=== PATIENT | female | born 1955 | race American Indian/Alaskan Native ===

== ENCOUNTER 2017-08-09 23:14 | Inpatient (IN) | payer OTHER ==
[2017-08-09 23:16] VITALS: BMI 40.7
[2017-08-09] MEDS ORDERED: Albuterol-Ipratrop 3 mg / 0.5 (3 ml) UD ONE (23:35)
[2017-08-09] MEDS ORDERED: Azithromycin 500MG/NS 250ml 500 MG/250 ML BAG IV STA (23:39)
[2017-08-09] MEDS ORDERED: Albuterol-Ipratrop 3 mg / 0.5 (3 ml) UD IH STA (23:39)
[2017-08-09] MEDS ORDERED: cefTRIAXone 1 gm 1 GM/100 ML BAG IV STA (23:39)
[2017-08-09] MEDS ORDERED: EPINEPHrine 1 mg/ml (1:1000) Inj SC STA (23:40)
[2017-08-09] MEDS ORDERED: Magnesium Sulfate 2 GM in Sodium Chloride 0.9% 100 ML IVPB ONE (23:40)
[2017-08-09] MEDS: EPINEPHrine 1 mg/ml (1:1000) Inj ONE (23:41)
[2017-08-09 23:51] LABS: BASO # 0.01 K/mm3 (0.0-2.0); BASO % 0.1 % (0.0-3.0); EOS # 0.4 (0.0-0.7); EOS % 3.2 % (1.5-5.0); GRAN # 7.86 (1.4-6.5); GRAN % 61.8 % (50.0-68.0); HEMATOCRIT 38.4 % (36.0-48.0); LYMPH # 3.5 (1.2-3.4); LYMPH % 27.4 % (22.0-35.0); MEAN CELL VOLUME 85.5 fl (80.0-105.0); MEAN CORPUSCULAR HEMOGLOBIN 28.1 pg (25.0-35.0); MEAN CORPUSCULAR HGB CONC 32.8 g/dl (31.0-37.0); MEAN PLATELET VOLUME 9.3 fl (7.0-11.0); MONO % 7.5 % (1.0-6.0); RED CELL DISTRIBUTION WIDTH 13.3 % (11.5-14.5); WHITE BLOOD COUNT 12.7 10^3/ul (4.5-11.0)
--- NOTE | 2017-08-09 23:52 | ED PDOC ---
Arrival/HPI - General Chief Complaint: Respiratory Distress Time Seen by Provider: 08/09/17 23:38 Historian: Patient - Critical Care Critical Care Minutes: 30 minutes - History of Present Illness Narrative History of Present Illness (Text): 08/09/17 23:40 Magalis Dickerson is a 62 year old female who presents to the emergency department complaining of 1 week duration of intermittent wheezing as per EMS. Patient has been using a nebulizer machine at home with very little help. Today , Patient was walking with her and became very short of breath, then brought into the emergency room. Patient indicates having dry, non-productive coughs and denies any chest pain. Patient has no other complaints. ROS limited due to severity of situation. Time/Duration: 1 week Symptom Course: Intermittent Severity Level: Mild Activities at Onset: Light Past Medical History - Provider Review Nursing Documentation Reviewed: Yes - Infectious Disease Hx of Infectious Diseases: None - Cardiac Hx Hypertension: Yes - Pulmonary Hx Bronchitis: Yes - Neurological Other/Comment: diabetic neuropathy - Endocrine/Metabolic Hx Diabetes Mellitus Type 2: Yes - Psychiatric Hx Substance Use: No Family/Social History - Physician Review Nursing Documentation Reviewed: Yes Family/Social History: No Known Family HX Smoking Status: Unknown If Ever Smoked Hx Alcohol Use: No Hx Substance Use: No Allergies/Home Meds Allergies/Adverse Reactions: Allergies No Known Allergies Allergy (Verified 08/09/17 23:16) Home Medications: Home Meds Medication Instructions Recorded Confirmed Amoxicillin/Clavulanate [Augmentin 1 tab PO BID 08/09/17 08/09/17 875 MG-125 MG Tab] Gabapentin [Neurontin] 1 tab PO TID 08/09/17 08/09/17 MetFORMIN [glucoPHAGE] 1 tab PO BID 08/09/17 08/09/17 Promethazine HCl/Codeine 1 tsp PO HS 08/09/17 08/09/17 [Prometh-Codein 6.25-10 mg/5 ml] Ramipril [Altace] 1 tab PO DAILY 08/09/17 08/09/17 Simvastatin [Zocor] 1 tab PO DAILY 08/09/17 08/09/17 Physical Exam - Physical Exam Narrative Physical Exam (Text): - Review of Systems: Limited due to severity of situation. Physical exam Patient is in severe respiratory distress, speaking in 1-2 word sentences. - Systems Exam Head: Present: Atraumatic, Normocephalic Pupils: Present: PERRL Extroacular Muscles: Present: EOMI Conjunctiva: Present: Normal Mouth: Present: Moist Mucous Membranes Neck: Present: Normal Range of Motion. No: MIDLINE TENDERNESS, Paraspinal Tenderness Respiratory/Chest: Diffuse expiratory wheezing in all lung carroll. Cardiovascular: Present: Regular Rate and Rhythm, Normal S1, S2, Peripheal Pulses Present. No: Murmurs Abdomen: Present: Normal Bowel Sounds. No: Tenderness, Distention, Peritoneal Signs, Rebound, Guarding Back: Present: Normal Inspection. No: Midline Tenderness, Paraspinal Tenderness Upper Extremity: Present: Normal Inspection. No: Cyanosis, Edema Lower Extremity: Present: Normal Inspection. No: Edema Neurological: Present: GCS=15, Speech Normal, cranial nerves II through XII fully intact with no cerebellar abnormality, neurosensory fully intact. No focal neurological deficits. Skin: Present: Warm, Dry, Normal Color. No: Rashes Lymphatic: Present: OX3, NI, NC Psychiatric: Present: Alert, Oriented x 3, Normal Insight, Normal Concentration Vital Signs Reviewed: Yes Vital Signs Temp Pulse Resp BP Pulse Ox 08/10/17 03:00 119 H 23 99/64 L 100 08/10/17 02:50 123 H 21 100 08/10/17 02:46 98.1 F 113 H 25 H 118/70 08/10/17 02:40 132 H 33 H 100 08/10/17 02:34 135 H 30 H 100 08/10/17 02:30 98.1 F 118/70 08/10/17 01:55 162/107 H 08/09/17 23:25 98.9 F 122 H 28 H 146/77 100 08/09/17 23:20 30 H 96 Temperature: Afebrile Blood Pressure: Normal Pulse: Tachycardic Respiratory Rate: Tachypneic Medical Decision Making ED Course and Treatment: Impression: 62 year old female complaining of 1 week duration of intermittent wheezing. On physical exam, patient has diffuse expiratory wheezing in all lung carroll. Differential Diagnosis included but are not limited to: bronchitis, asthma, pneumonia Plan: -- ABG -- Chest X-ray -- Blood Culture -- BiPAP -- Labs -- Duoneb, Epinephrine, Rocephine, Zithromax, and Magnesium -- Reassess and disposition Progress Notes: EKG shows Sinus tachycardia at [address]-segment elevations, normal intervals. Interpreted by me. 08/10/17 23:40 Patient seen immediately on arrival. As per cemetery counselor report, patient received one nebulizer treatment and 125 mg of solu-medrol en route. Patient ordered 2g of Magnesium. Patient given continuous nebulizers with little relief. Patient denied any heart disease. Epinephrine SQ ordered and given. Placed on BiPAP. Patient tolerating BiPAP for now. 08/10/17 00:26 Chest X-ray read and interpreted by me, which shows no cardiomegaly, no pneumothorax, no effusions. Case discussed with Dr. Larkin, who that he will evaluate patient. 08/10/17 00:33 On reevaluation, patient states that she feels much better. Wheezing improved. 08/10/17 00:[address] Larkin, patient accepted to MICU. 08/10/17 00:57 Patient says that she has no [place] [facility] [place] [facility]oy paged multiple times but no call back. Case discussed with Dr. Larkin, who states that he is aware that patient is going under hospitalist service. 08/10/17 01:[address] Sims, who accepts patient admission. on reeval, pt tolerating bipap - Lab Interpretations Lab Results: 08/09/17 23:30 08/09/17 23:30 Lab Results 08/10/17 00:10: pCO2 56 H, pO2 196.0 H, HCO3 25.1, ABG pH 7.26 L, ABG Total CO2 26.8, ABG O2 Saturation 99.5 H, ABG O2 Content 17.5, ABG Base Excess -2.7 L, ABG Hemoglobin 12.5, ABG Carboxyhemoglobin 1.5, POC ABG HHb (Measured) 0.5, ABG Methemoglobin 0.8, ABG O2 Capacity 17.6, Hgb O2 Saturation 97.2, FiO2 70.0 08/09/17 23:30: Sodium 141, Potassium 3.5 L, Chloride 103, Carbon Dioxide 27, Anion Gap 15, BUN 10, Creatinine 0.8, Est GFR ( Amer) > 60, Est GFR (Non- Af Amer) > 60, Random Glucose 198 H, Calcium 8.9, Total Bilirubin 0.6, AST 36, ALT 31, Alkaline Phosphatase 76, Lactate Dehydrogenase 570, Total Creatine Kinase 696 H, CK-MB (CK-2) 2.9, CK-MB (CK-2) % Cancelled, Troponin I < 0.01, NT- Pro-B Natriuret Pep 129, Total Protein 7.5, Albumin 4.3, Globulin 3.2, Albumin/ Globulin Ratio 1.3 08/09/17 23:30: PT 10.9, INR 1.01, APTT 24.5 08/09/17 23:30: WBC 12.7 H, RBC 4.49, Hgb 12.6, Hct 38.4, MCV 85.5, MCH 28.1, MCHC 32.8, RDW 13.3, Plt Count 276, MPV 9.3, Gran % 61.8, Lymph % (Auto) 27.4, [place] % (Auto) 7.5 H, Eos % (Auto) 3.2, Baso % (Auto) 0.1, Gran # 7.86 H, Lymph # 3.5 H, [place] # 1.0 H, Eos # 0.4, Baso # 0.01 I have reviewed the lab results: Yes - RAD Interpretation Radiology Orders: 08/09/17 23:39 CHEST PORTABLE [RAD] Stat - Medication Orders Current Medication Orders: Albuterol/Ipratropium (Duoneb 3 Mg/0.5 Mg (3 Ml) Ud) 3 ml IH Q2H PRN PRN Reason: Shortness of Breath Albuterol/Ipratropium (Duoneb 3 Mg/0.5 Mg (3 Ml) Ud) 3 ml IH [id number] LINDA Last Admin: 08/10/17 03:07 Dose: 3 ml Atorvastatin Calcium (Lipitor) 20 mg PO DIN LINDA Gabapentin (Neurontin) 100 mg PO TID LINDA PRN Reason: Protocol Heparin Sodium (Porcine) (Heparin) 5,000 units SC Q12 LINDA PRN Reason: Protocol Sodium Chloride (Sodium Chloride 0.9%) 1,000 mls @ 75 mls/hr IV .[id number] LINDA Last Admin: 08/10/17 02:30 Dose: 75 mls/hr eMAR Start Stop Document 08/10/17 02:30 PD (Rec: 08/10/17 05:08 PD [id number]) Intravenous Solution Start Date 08/10/17 Start Time 02:30 Insulin Human Lispro (Humalog Med) 0 units SC ACHS LINDA PRN Reason: Protocol Methylprednisolone (Solu-Medrol) 40 mg IVP Q12 LINDA Ondansetron HCl (Zofran Inj) 4 mg IVP Q4H PRN PRN Reason: Nausea/Vomiting Pantoprazole Sodium (Protonix Ec Tab) 40 mg PO 0600 LINDA Ramipril (Altace) 5 mg PO DAILY LINDA Discontinued Medications Albuterol/Ipratropium (Duoneb 3 Mg/0.5 Mg (3 Ml) Ud) 3 ml IH STAT STA Stop: 08/09/17 23:40 Last Admin: 08/10/17 02:47 Dose: 3 ml Epinephrine HCl (Epinephrine) 0.5 mg SC STAT STA Stop: 08/09/17 23:41 Last Admin: 08/10/17 01:08 Dose: 0.5 mg Subcutaneous Administrations Document 08/10/17 01:08 TEVIN (Rec: 08/10/17 01:08 [id number]) Charges for Administration # of Subcutaneous Administrations 1 Magnesium Sulfate 2 gm/ Sodium (Chloride) 104 mls @ 102 mls/hr IVPB ONCE ONE Stop: 08/10/17 00:41 Last Admin: 08/09/17 23:15 Dose: 102 mls/hr eMAR Start Stop Document 08/09/17 23:15 TEVIN (Rec: 08/10/17 01:07 [facility] [id number]) Intravenous Solution Start Date 08/09/17 Start Time 23:15 End Date 08/10/17 End time 00:16 Total Infusion Time 61 Ceftriaxone Sodium (Rocephin 1 Gram Ivpb) 1 gm in 100 mls @ 200 mls/hr IV STAT STA PRN Reason: Protocol Stop: 08/10/17 00:08 Last Admin: 08/10/17 01:15 Dose: 200 mls/hr eMAR Start Stop Document 08/10/17 01:15 TEVIN (Rec: 08/10/17 01:15 [id number]) Intravenous Solution Start Date 08/10/17 Start Time 01:15 End Date 08/10/17 End time 01:45 Total Infusion Time 30 Azithromycin (Zithromax 500mg In Ns) 500 mg in 250 mls @ 166.667 mls/hr IV STAT STA PRN Reason: Protocol Stop: 08/10/17 01:08 Last Admin: 08/10/17 03:17 Dose: 166.667 mls/hr eMAR Start Stop Document 08/10/17 03:17 PD (Rec: 08/10/17 03:18 PD [id number]) Intravenous Solution Start Date 08/10/17 Start Time 03:18 Lorazepam (Ativan) 1 mg IVP ONCE ONE PRN Reason: Protocol Stop: 08/10/17 02:15 Last Admin: 08/10/17 02:49 Dose: 1 mg IVP Administration Document 08/10/17 02:49 JOL (Rec: 08/10/17 02:49 [id number] Charges for Administration # of IVP Administrations 1 Re-Assess: Reassess Psych Meds Document 08/10/17 03:19 PD (Rec: 08/10/17 05:13 PD [id number]) Reassess Psych Med Effective - Scribe Statement The provider has reviewed the documentation as recorded by the Scribe Marlena Del Rio Provider Scribe Attestation: All medical record entries made by the Scribe were at my direction and personally dictated by me. I have reviewed the chart and agree that the record accurately reflects my personal performance of the history, physical exam, medical decision making, and the department course for this patient. I have also personally directed, reviewed, and agree with the discharge instructions and disposition. Disposition/Present on Arrival - Present on Arrival Any Indicators Present on Arrival: No History of DVT/PE: No History of Uncontrolled Diabetes: No Urinary Catheter: No History of Decub. Ulcer: No History Surgical Site Infection Following: None - Disposition Have Diagnosis and Disposition been Completed?: Yes Diagnosis: Respiratory distress Disposition: HOSPITALIZED Disposition Time: 00:59 Patient Plan: Admission Condition: CRITICAL
[2017-08-09 23:59] LABS: INR 1.01 (0.93-1.08); PARTIAL THROMBOPLASTIN TIME 24.5 Seconds (23.7-30.8)
[2017-08-10 00:05] LABS: ALB/GLOB RATIO 1.3 (1.1-1.8); ALKALINE PHOSPHATASE 76 U/L (38-126); ALT/SGPT 31 U/L (7-56); AST/SGOT 36 U/L (14-36); BILIRUBIN,TOTAL 0.6 mg/dL (0.2-1.3); BLOOD UREA NITROGEN 10 mg/dL (7-21); CALCIUM 8.9 mg/dL (8.4-10.5); CARBON DIOXIDE 27 mmol/L (21-33); CHLORIDE 103 mmol/L (98-107); GFR AFRICAN-AMERICAN > 60; GLUCOSE,RANDOM 198 mg/dL (70-110); POTASSIUM 3.5 mmol/L (3.6-5.0); SODIUM 141 mmol/L (132-148); TOTAL PROTEIN 7.5 g/dL (5.8-8.3)
[2017-08-10 00:18] LABS: TROPONIN I < 0.01 ng/mL
[2017-08-10 00:21] LABS: ARTERIAL BLOOD GAS HCO3 25.1 mmol/L (21-28); ARTERIAL BLOOD GAS O2 CAPACITY 17.6 mL/dl (16-24); ARTERIAL BLOOD GAS O2 CONTENT 17.5 ML/dl (15-23); ARTERIAL BLOOD GAS PH 7.26 (7.35-7.45); ARTERIAL BLOOD HGB O2 SAT 97.2 % (95.0-98.0); CARBOXYHEMOGLOBIN 1.5 % (0.5-1.5); HHB 0.5 % (0-5); METHEMOGLOBIN 0.8 % (0.0-3.0)
[2017-08-10] MEDS ORDERED: Albuterol-Ipratrop 3 mg / 0.5 (3 ml) UD IH PRN (01:17)
--- NOTE | 2017-08-10 01:23 | CP.PCM.HP ---
<Toni Malloy - Last Filed: 08/10/17 01:31> History of Present Illness - History of Present Illness History of Present Illness: 62 y/o F with PMH of HTN, DM, and HLD presents to the ED for a 1 week duration of progressive shortness of breath. Pt states she has never had symptoms like these before. Pt admits to gradually have worsening of her respiratory status. She states she did not have any fever or chills and denies any recent illnesses. She also states she had a nonproductive cough. She went to her PMD who gave her an injection of steroids, antibiotics, and cough syrup, which did not help her symptoms. Today, pt felt as though she could not catch her breath and was speaking in very short sentences. She also began to feel a great deal of tightness in her chest. At this time, she decided to come to the ED. Denies chest pain, diarrhea, constipation, runny nose. She does admit to occasional palpitations and nausea during her episode of chest tightness. PMH: HTN, DM, HLD FMH: HTN, DM Social Hx: Denies alcohol, tobacco, or illicit drug use Allergies: NKDA Medication: Reviewed, as per chart Present on Admission - Present on Admission Any Indicators Present on Admission: No Review of Systems - Review of Systems Review of Systems: 12 point ROS as per HPI, otherwise negative. Past Patient History - Infectious Disease Hx of Infectious Diseases: None - Past Social History Smoking Status: Unknown If Ever Smoked - CARDIAC Hx Hypertension: Yes - PULMONARY Hx Bronchitis: Yes - NEUROLOGICAL Other/Comment: diabetic neuropathy - ENDOCRINE/METABOLIC Hx Diabetes Mellitus Type 2: Yes - PSYCHIATRIC Hx Substance Use: No Meds Allergies/Adverse Reactions: Allergies Allergy/AdvReac Type Severity Reaction Status Date / Time No Known Allergies Allergy Verified 08/09/17 23:16 Physical Exam - Constitutional Appears: Non-toxic, In Acute Distress - Head Exam Head Exam: ATRAUMATIC, NORMAL INSPECTION, NORMOCEPHALIC - Eye Exam Eye Exam: EOMI, Normal appearance - ENT Exam ENT Exam: Mucous Membranes Moist - Respiratory Exam Respiratory Exam: Accessory Muscle Use, Rhonchi, Wheezes (Diffuse b/l), Respiratory Distress. absent: Rales - Cardiovascular Exam Cardiovascular Exam: Tachycardia, +S1, +S2 - GI/Abdominal Exam GI & Abdominal Exam: Normal Bowel Sounds, Soft. absent: Tenderness - Extremities Exam Extremities exam: Positive for: normal inspection. Negative for: calf tenderness, pedal edema - Neurological Exam Neurological exam: Alert, CN II-XII Intact, Oriented x3 - Psychiatric Exam Psychiatric exam: Normal Affect, Normal Mood - Skin Skin Exam: Intact, Normal Color, Warm Results - Vital Signs Recent Vital Signs: Last Vital Signs Temp 98.9 F 08/09/17 23:25 Pulse 122 H 08/09/17 23:25 Resp 28 H 08/09/17 23:25 BP 146/77 08/09/17 23:25 Pulse Ox 100 08/09/17 23:25 - Labs Result Diagrams: 08/09/17 23:30 08/09/17 23:30 Labs: Laboratory Results - last 24 hr 08/09/17 08/09/17 08/09/17 23:30 23:30 23:30 WBC 12.7 H RBC 4.49 Hgb 12.6 Hct 38.4 MCV 85.5 MCH 28.1 MCHC 32.8 RDW 13.3 Plt Count 276 MPV 9.3 Gran % 61.8 Lymph % (Auto) 27.4 [place] % (Auto) 7.5 H Eos % (Auto) 3.2 Baso % (Auto) 0.1 Gran # 7.86 H Lymph # 3.5 H [place] # 1.0 H Eos # 0.4 Baso # 0.01 PT 10.9 INR 1.01 APTT 24.5 pCO2 pO2 HCO3 ABG pH ABG Total CO2 ABG O2 Saturation ABG O2 Content ABG Base Excess ABG Hemoglobin ABG Carboxyhemoglobin POC ABG HHb (Measured) ABG Methemoglobin ABG O2 Capacity Hgb O2 Saturation FiO2 Sodium 141 Potassium 3.5 L Chloride 103 Carbon Dioxide 27 Anion Gap 15 BUN 10 Creatinine 0.8 Est GFR ( Amer) > 60 Est GFR (Non-Af Amer) > 60 Random Glucose 198 H Calcium 8.9 Total Bilirubin 0.6 AST 36 ALT 31 Alkaline Phosphatase 76 Lactate Dehydrogenase 570 Total Creatine Kinase 696 H CK-MB (CK-2) 2.9 CK-MB (CK-2) % Cancelled Troponin I < 0.01 NT-Pro-B Natriuret Pep 129 Total Protein 7.5 Albumin 4.3 Globulin 3.2 Albumin/Globulin Ratio 1.3 08/10/17 00:10 WBC RBC Hgb Hct MCV MCH MCHC RDW Plt Count MPV Gran % Lymph % (Auto) [place] % (Auto) Eos % (Auto) Baso % (Auto) Gran # Lymph # [place] # Eos # Baso # PT INR APTT pCO2 56 H pO2 196.0 H HCO3 25.1 ABG pH 7.26 L ABG Total CO2 26.8 ABG O2 Saturation 99.5 H ABG O2 Content 17.5 ABG Base Excess -2.7 L ABG Hemoglobin 12.5 ABG Carboxyhemoglobin 1.5 POC ABG HHb (Measured) 0.5 ABG Methemoglobin 0.8 ABG O2 Capacity 17.6 Hgb O2 Saturation 97.2 FiO2 70.0 Sodium Potassium Chloride Carbon Dioxide Anion Gap BUN Creatinine Est GFR ( Amer) Est GFR (Non-Af Amer) Random Glucose Calcium Total Bilirubin AST ALT Alkaline Phosphatase Lactate Dehydrogenase Total Creatine Kinase CK-MB (CK-2) CK-MB (CK-2) % Troponin I NT-Pro-B Natriuret Pep Total Protein Albumin Globulin Albumin/Globulin Ratio Assessment & Plan - Assessment and Plan (Free Text) Plan: 62 y/o F with PMH of HTN, DM, and HLD presenting in respiratory distress. Pt was given duonebs, magnesium sulfate, and epinephrine in the ED with improvement. Pt was placed on BIPAP where she continued to improve. Pt will be admitted to the ICU and monitored closely overnight. 1. Respiratory distress Continue BIPAP Duonebs q4h scheduled and q2h prn Solumedrol 40 mg IV q12 Troponin negative CXR in AM ABG in AM NS @ 75 cc/hr 2. HTN Continue home medication, Ramipril 3. DM ISS Hold home metformin Glucose levels ACHS 4. HLD Continue home medication 5. PPX Heparin Protonix Henri Malloy, PGY-2 <Chaya BELTRAN,Emre - Last Filed: 08/10/17 12:20> Results - Vital Signs Recent Vital Signs: Last Vital Signs Temp 98.3 F 08/10/17 08:00 Pulse 97 H 08/10/17 11:50 Resp 22 08/10/17 04:20 BP 136/97 H 08/10/17 11:45 Pulse Ox 100 08/10/17 11:50 - Labs Result Diagrams: 08/10/17 08:30 08/10/17 08:30 Labs: Laboratory Results - last 24 hr 08/10/17 08/10/17 08/10/17 05:10 08:30 08:30 WBC 14.8 H RBC 4.19 Hgb 11.6 L Hct 36.4 MCV 86.9 MCH 27.7 MCHC 31.9 RDW 13.6 Plt Count 245 MPV 9.3 pCO2 46 H pO2 161.0 H HCO3 20.2 L ABG pH 7.25 L ABG Total CO2 21.6 L ABG O2 Saturation 99.1 H ABG Base Excess -7.0 L ABG Potassium 3.6 VBG pH VBG pCO2 VBG HCO3 VBG Total CO2 VBG O2 Sat (Calc) VBG Base Excess VBG Potassium Sodium 138.0 143 Chloride 106.0 104 Glucose 255 H Lactate 5.8 H* FiO2 40.0 Potassium 4.2 Carbon Dioxide 22 Anion Gap 21 H BUN 14 Creatinine 1.2 Est GFR ( Amer) 55 Est GFR (Non-Af Amer) 46 Random Glucose 237 H Calcium 8.5 Total Bilirubin 0.4 AST 34 ALT 31 Alkaline Phosphatase 63 Troponin I 0.02 D Total Protein 7.3 Albumin 4.3 Globulin 3.1 Albumin/Globulin Ratio 1.4 Arterial Blood Potassium 3.6 Venous Blood Potassium 08/10/17 08/10/17 09:10 10:07 WBC RBC Hgb Hct MCV MCH MCHC RDW Plt Count MPV pCO2 53 H pO2 90.0 185 H HCO3 22.7 ABG pH 7.24 L ABG Total CO2 24.3 ABG O2 Saturation 97.9 ABG Base Excess -5.2 L ABG Potassium 4.1 VBG pH 7.27 L VBG pCO2 52.0 VBG HCO3 23.9 VBG Total CO2 25.5 VBG O2 Sat (Calc) 98.6 H VBG Base Excess -3.6 L VBG Potassium 4.3 Sodium 138.0 137.0 Chloride 106.0 106.0 Glucose 240 H 238 H Lactate 4.4 H* 5.0 H* FiO2 40.0 21.0 Potassium Carbon Dioxide Anion Gap BUN Creatinine Est GFR ( Amer) Est GFR (Non-Af Amer) Random Glucose Calcium Total Bilirubin AST ALT Alkaline Phosphatase Troponin I Total Protein Albumin Globulin Albumin/Globulin Ratio Arterial Blood Potassium 4.1 Venous Blood Potassium 4.3 Attending/Attestation - Attestation I have personally seen and examined this patient.: Yes I have fully participated in the care of the patient.: Yes I have reviewed all pertinent clinical information: Yes Notes (Text): -I agree with the above H&P completed by the resident physician with the following additions and/or changes: The patient is a 62 year old obese woman with a history of NIDDM, HTN and DL, who presented with 1 week of progressively worsening SOB and dry cough. She initially presented to her PMD 2 days ago, and was prescribed a Z-pack, Prednisone and a Albuterol inhaler. Despite these meds, her symptoms worsened and ultimately led her to come to the [facility] [place] early this morning. She denied any history of smoking, illicit drugs, previous history of similar symptoms, orthopnea or prolonged immobility. Initial labs showed a normal serum BNP and very mild congestion on CXR (and no obvious infiltrates). In the ED, her respiratory symptoms initially improved after starting Bipap therapy and receiving Duo-neb treatments. However, soon after arrival to the ICU, her respiratory status rapidly worsened and she became tachypneic with accessory muscle use (despite Bipap). As a result, around 5:30am this morning, she was intubated. The underlying cause of her symptoms is still not totally clear. The differential diagnosis includes: New onset Asthma Exacerbation vs New onset CHF Exacerbation vs Flu vs Acute PE vs NH. She will be started on low-dose IV Lasix , empiric IV antibiotics, IV Solumedrol and Duo-nebs ATC. Pulmonary and cardiology have also been consulted. A 2D-echo has been ordered.
[2017-08-10] MEDS ORDERED: Sodium Chloride 0.9% 1,000 ML IV SCH (01:30)
[2017-08-10] MEDS ORDERED: Dexamethasone 4 mg/1 ml ONE ×2 (02:10→02:11)
[2017-08-10] MEDS: EPINEPHrine 1 mg/ml (1:1000) Inj ONE (02:47)
[2017-08-10] MEDS: Albuterol-Ipratrop 3 mg / 0.5 (3 ml) UD IH SCH ×5 (03:07→19:30)
[2017-08-10 05:33] LABS: ARTERIAL BLOOD GAS HCO3 20.2 mmol/L (21-28); ARTERIAL BLOOD GAS PH 7.25 (7.35-7.45)
[2017-08-10] MEDS ORDERED: Propofol 10 mg/ml 2,000 MG/200 ML VIAL ONE (05:51)
[2017-08-10] MEDS ORDERED: Pantoprazole 40 mg EC Tab PO SCH (06:00)
[2017-08-10] MEDS: Propofol 10 mg/ml 1,000 MG/100 ML VIAL IV PRN ×5 (06:20→23:46)
[2017-08-10] MEDS ORDERED: Potassium Chloride 40 mEq/30 ml LIQ UD PO ONE (06:47)
[2017-08-10] MEDS: Fentanyl 1000mcg/100ml NS 1,000 MCG/100 ML BAG IV PRN ×3 (06:50→23:17)
[2017-08-10] MEDS: Insulin Lispro (humaLOG) MEDIUM Coverage SC SCH ×4 (07:30→22:30)
[2017-08-10] MEDS ORDERED: Midazolam 5 MG/5 ML VIAL IVP ONE (07:35)
--- NOTE | 2017-08-10 08:24 | RAD ---
HISTORY: Cough COMPARISON: 08/09/2017. FINDINGS: LUNGS: The lungs are well inflated and clear. PLEURA: No significant pleural effusion identified, no pneumothorax apparent. CARDIOVASCULAR: Normal. OSSEOUS STRUCTURES: No significant abnormalities. VISUALIZED UPPER ABDOMEN: Normal. OTHER FINDINGS: None. IMPRESSION: No active pulmonary disease.
--- NOTE | 2017-08-10 08:28 | RAD ---
HISTORY: ET insertion/position COMPARISON: 08/10/2017. FINDINGS: The endotracheal tube terminates 3.2 cm proximal to the josé miguel. LUNGS: The lungs are well inflated and clear. PLEURA: No significant pleural effusion identified, no pneumothorax apparent. CARDIOVASCULAR: Normal. OSSEOUS STRUCTURES: No significant abnormalities. VISUALIZED UPPER ABDOMEN: Normal. OTHER FINDINGS: None. IMPRESSION: No acute findings. Endotracheal tube terminates 3.2 cm proximal to the josé miguel.
--- NOTE | 2017-08-10 08:33 | RAD ---
HISTORY: Shortness of breath. Technique: Single view portable semi erect @ 05:20. COMPARISON: August 09, 2017. FINDINGS: LUNGS: No active pulmonary disease. PLEURA: No significant pleural effusion identified, no pneumothorax apparent. CARDIOVASCULAR: No radiographic findings to suggest acute or significant cardiovascular disease. OSSEOUS STRUCTURES: No significant abnormalities. VISUALIZED UPPER ABDOMEN: Normal. OTHER FINDINGS: None. IMPRESSION: No active disease. No significant interval change compared to the prior examination(s).
[2017-08-10 08:49] LABS: HEMATOCRIT 36.4 % (36.0-48.0); MEAN CELL VOLUME 86.9 fl (80.0-105.0); MEAN CORPUSCULAR HEMOGLOBIN 27.7 pg (25.0-35.0); MEAN CORPUSCULAR HGB CONC 31.9 g/dl (31.0-37.0); MEAN PLATELET VOLUME 9.3 fl (7.0-11.0); RED CELL DISTRIBUTION WIDTH 13.6 % (11.5-14.5); WHITE BLOOD COUNT 14.8 10^3/ul (4.5-11.0)
[2017-08-10 08:52] LABS: ALB/GLOB RATIO 1.4 (1.1-1.8); BILIRUBIN,TOTAL 0.4 mg/dL (0.2-1.3); CALCIUM 8.5 mg/dL (8.4-10.5); POTASSIUM 4.2 mmol/L (3.6-5.0); TOTAL PROTEIN 7.3 g/dL (5.8-8.3)
[2017-08-10 09:03] LABS: TROPONIN I 0.02 ng/mL
--- NOTE | 2017-08-10 09:12 | CARD ---
APPROVED REPORT EKG Measurement Heart [id number] <Conclusion> Sinus tachycardia NSSTW changes Prolonged QTc
[2017-08-10 09:13] LABS: ARTERIAL BLOOD GAS HCO3 22.7 mmol/L (21-28); ARTERIAL BLOOD GAS PH 7.24 (7.35-7.45)
[2017-08-10] MEDS: MethylPREDNISolone 40 mg Vial IVP STA ×2 (09:45→11:58)
[2017-08-10] MEDS ORDERED: MethylPREDNISolone 40 mg Vial IVP SCH (10:00)
[2017-08-10 10:12] LABS: VENOUS BLOOD GAS BASE EXCESS -3.6 mmol/L (0.0-2.0); VENOUS BLOOD PH 7.27 (7.32-7.43)
[2017-08-10] MEDS: cefTRIAXone 1 gm 1 GM/100 ML BAG IVPB SCH (10:44)
[2017-08-10] MEDS: Azithromycin 500MG/NS 250ml 500 MG/250 ML BAG IVPB SCH (10:44)
[2017-08-10] MEDS ORDERED: Piperacillin/Tazobact 3.375 gm 100 ML IVPB SCH (12:00)
[2017-08-10] MEDS: MethylPREDNISolone 40 mg Vial IVP SCH ×4 (12:08→23:36)
--- NOTE | 2017-08-10 12:09 | CP.CCUPN ---
<Judy Gonzales - Last Filed: 08/10/17 12:10> CCU Subjective - Physician Review Events Since Last Encounter (Free Text): 08/10/17 12:06 Admitted to ICU, intubated 2/2 respiratory distress Subjective (Free Text): 08/10/17 12:07 Critical care progress note for Dr. Tyler Gonzales, PGY-1 Pt S & E at bedside. Pt intubated, sedated, on mechanical vent since early this AM- responsive to verbal and tactile stimuli. Critical Care Time Spent (in minutes): 35 CCU Objective - Vital Signs / Intake & Output Vital Signs (Last 4 hours): Vital Signs Pulse BP Pulse Ox 08/10/17 11:50 97 H 100 08/10/17 11:45 107 H 136/97 H 95 08/10/17 11:40 105 H 100 08/10/17 11:30 107 H 138/93 H 100 08/10/17 11:20 106 H 100 08/10/17 11:15 104 H 130/79 100 08/10/17 11:10 103 H 100 08/10/17 11:00 95 H 135/73 100 08/10/17 10:50 97 H 99 08/10/17 10:45 90 119/69 99 08/10/17 10:44 118/67 08/10/17 10:40 91 H 99 08/10/17 10:30 90 118/67 99 08/10/17 10:20 90 100 08/10/17 10:15 90 117/67 99 08/10/17 10:10 91 H 100 08/10/17 10:00 92 H 112/40 L 94 L 08/10/17 09:50 92 H 100 08/10/17 09:45 91 H 111/63 100 08/10/17 09:40 92 H 100 08/10/17 09:30 93 H 99/56 L 100 08/10/17 09:20 95 H 100 08/10/17 09:15 95 H 95/49 L 100 08/10/17 09:11 95 H 93/49 L 100 08/10/17 09:10 96 H 100 08/10/17 09:00 97 H 95/53 L 98 08/10/17 08:50 99 H 99 08/10/17 08:45 99 H 93/45 L 97 08/10/17 08:40 100 H 99 08/10/17 08:30 101 H 89/45 L 97 08/10/17 08:24 102 H 99/52 L 100 08/10/17 08:20 100 H 121/60 100 08/10/17 08:15 101 H 116/51 L 100 08/10/17 08:10 103 H 107/54 L 100 Intake and Output (Last 8hrs): Intake & Output 08/09/17 08/10/17 08/10/17 22:59 06:59 14:59 Intake Total 100 Balance 100 Weight 103.419 kg Intake: IV 100 - Medications Active Medications: Active Medications Generic Name Dose Route Start Last Admin Trade Name Freq PRN Reason Stop Dose Admin Albuterol/Ipratropium 3 ml 08/10/17 01:17 08/10/17 09:43 Duoneb 3 Mg/0.5 Mg (3 Ml) Ud IH 3 ml Q2H PRN Administration Shortness of Breath Albuterol/Ipratropium 3 ml 08/10/17 03:30 08/10/17 11:46 Duoneb 3 Mg/0.5 Mg (3 Ml) Ud IH 3 ml [id number] LINDA Administration Heparin Sodium (Porcine) 5,000 units 08/10/17 10:00 08/10/17 10:44 Heparin SC 5,000 units Q12 LINDA Administration Protocol Fentanyl Citrate 1,000 mcg in 100 mls @ 2 mls/hr 08/10/17 06:30 08/10/17 06: 50 Fentanyl Citrate/Sodium Chloride 1 Mg/100 Ml IV 20 mcg/hr .Q24H PRN 2 mls/hr TITRATE PER MD ORDER Administration Protocol 20 MCG/HR Propofol 1,000 mg in 100 mls @ 3.13 mls/hr 08/10/17 07:09 08/10/17 09:10 Diprivan IV 15 mcg/kg/min .Q24H PRN 9.389 mls/hr TITRATE PER MD ORDER Administration Protocol 5 MCG/KG/MIN Ceftriaxone Sodium 1 gm in 100 mls @ 100 mls/hr 08/10/17 10:30 08/10/17 10:44 Rocephin 1 Gram Ivpb IVPB 100 mls/hr DAILY LINDA Administration Protocol Azithromycin 500 mg in 250 mls @ 167 mls/hr 08/10/17 10:30 08/10/17 10:44 Zithromax 500mg In Ns IVPB 167 mls/hr DAILY LINDA Administration Protocol Insulin Human Lispro 0 units 08/10/17 07:30 08/10/17 12:03 Humalog Med SC 1 units ACHS LINDA Administration Protocol Methylprednisolone 40 mg 08/10/17 12:00 Solu-Medrol IVP Q6 LINDA Ondansetron HCl 4 mg 08/10/17 01:38 Zofran Inj IVP Q4H PRN Nausea/Vomiting Pantoprazole Sodium 40 mg 08/10/17 06:00 08/10/17 09:14 Protonix Ec Tab PO Not Given 0600 [facility] [place] - Patient Studies Lab Studies: Lab Studies 08/10/17 08/10/17 08/10/17 Range/Units 10:07 09:10 08:30 WBC (4.5-11.0) 10^3/ul RBC (3.5-6.1) 10^6/uL Hgb (12.0-16.0) g/dL Hct (36.0-48.0) % MCV (80.0-105.0) fl MCH (25.0-35.0) pg MCHC (31.0-37.0) g/dl RDW (11.5-14.5) % Plt Count (120.0-450.0) 10^3/uL MPV (7.0-11.0) fl pCO2 53 H (35-45) mm/Hg pO2 185 H 90.0 (80-100) mm/Hg HCO3 22.7 (21-28) mmol/L ABG pH 7.24 L (7.35-7.45) ABG Total CO2 24.3 (22-28) mmol.L ABG O2 Saturation 97.9 (95-98) % ABG Base Excess -5.2 L (-2.0-3.0) mmol/L ABG Potassium 4.1 (3.6-5.2) mmol/L VBG pH 7.27 L (7.32-7.43) VBG pCO2 52.0 (40-60) VBG HCO3 23.9 (21-28) mmol/l VBG Total CO2 25.5 (22-28) mmol.L VBG O2 Sat (Calc) 98.6 H (40-65) % VBG Base Excess -3.6 L (0.0-2.0) mmol/L VBG Potassium 4.3 (3.6-5.2) mmol/L Sodium 137.0 138.0 143 (132-148) mmol/L Chloride 106.0 106.0 104 (98-107) mmol/L Glucose 238 H 240 H (65-105) mg/dl Lactate 5.0 H* 4.4 H* (0.7-2.1) mmol/L FiO2 21.0 40.0 % Potassium 4.2 (3.6-5.0) mmol/L Carbon Dioxide 22 (21-33) mmol/L Anion Gap 21 H (10-20) BUN 14 (7-21) mg/dL Creatinine 1.2 (0.5-1.4) mg/dL Est GFR ( Amer) 55 Est GFR (Non-Af Amer) 46 Random Glucose 237 H (70-110) mg/dL Calcium 8.5 (8.4-10.5) mg/dL Total Bilirubin 0.4 (0.2-1.3) mg/dL AST 34 (14-36) U/L ALT 31 (7-56) U/L Alkaline Phosphatase 63 (38-126) U/L Troponin I 0.02 D ng/mL Total Protein 7.3 (5.8-8.3) g/dL Albumin 4.3 (3.0-4.8) g/dL Globulin 3.1 gm/dL Albumin/Globulin Ratio 1.4 (1.1-1.8) Arterial Blood Potassium 4.1 (3.6-5.2) mmol/L Venous Blood Potassium 4.3 (3.6-5.2) mmol/L 08/10/17 08/10/17 Range/Units 08:30 05:10 WBC 14.8 H (4.5-11.0) 10^3/ul RBC 4.19 (3.5-6.1) 10^6/uL Hgb 11.6 L (12.0-16.0) g/dL Hct 36.4 (36.0-48.0) % MCV 86.9 (80.0-105.0) fl MCH 27.7 (25.0-35.0) pg MCHC 31.9 (31.0-37.0) g/dl RDW 13.6 (11.5-14.5) % Plt Count 245 (120.0-450.0) 10^3/uL MPV 9.3 (7.0-11.0) fl pCO2 46 H (35-45) mm/Hg pO2 161.0 H (80-100) mm/Hg HCO3 20.2 L (21-28) mmol/L ABG pH 7.25 L (7.35-7.45) ABG Total CO2 21.6 L (22-28) mmol.L ABG O2 Saturation 99.1 H (95-98) % ABG Base Excess -7.0 L (-2.0-3.0) mmol/L ABG Potassium 3.6 (3.6-5.2) mmol/L VBG pH (7.32-7.43) VBG pCO2 (40-60) VBG HCO3 (21-28) mmol/l VBG Total CO2 (22-28) mmol.L VBG O2 Sat (Calc) (40-65) % VBG Base Excess (0.0-2.0) mmol/L VBG Potassium (3.6-5.2) mmol/L Sodium 138.0 (132-148) mmol/L Chloride 106.0 (98-107) mmol/L Glucose 255 H (65-105) mg/dl Lactate 5.8 H* (0.7-2.1) mmol/L FiO2 40.0 % Potassium (3.6-5.0) mmol/L Carbon Dioxide (21-33) mmol/L Anion Gap (10-20) BUN (7-21) mg/dL Creatinine (0.5-1.4) mg/dL Est GFR ( Amer) Est GFR (Non-Af Amer) Random Glucose (70-110) mg/dL Calcium (8.4-10.5) mg/dL Total Bilirubin (0.2-1.3) mg/dL AST (14-36) U/L ALT (7-56) U/L Alkaline Phosphatase (38-126) U/L Troponin I ng/mL Total Protein (5.8-8.3) g/dL Albumin (3.0-4.8) g/dL Globulin gm/dL Albumin/Globulin Ratio (1.1-1.8) Arterial Blood Potassium 3.6 (3.6-5.2) mmol/L Venous Blood Potassium (3.6-5.2) mmol/L Laboratory Results - last 24 hr 08/10/17 08/10/17 08/10/17 05:10 08:30 08:30 WBC 14.8 H RBC 4.19 Hgb 11.6 L Hct 36.4 MCV 86.9 MCH 27.7 MCHC 31.9 RDW 13.6 Plt Count 245 MPV 9.3 pCO2 46 H pO2 161.0 H HCO3 20.2 L ABG pH 7.25 L ABG Total CO2 21.6 L ABG O2 Saturation 99.1 H ABG Base Excess -7.0 L ABG Potassium 3.6 VBG pH VBG pCO2 VBG HCO3 VBG Total CO2 VBG O2 Sat (Calc) VBG Base Excess VBG Potassium Sodium 138.0 143 Chloride 106.0 104 Glucose 255 H Lactate 5.8 H* FiO2 40.0 Potassium 4.2 Carbon Dioxide 22 Anion Gap 21 H BUN 14 Creatinine 1.2 Est GFR ( Amer) 55 Est GFR (Non-Af Amer) 46 Random Glucose 237 H Calcium 8.5 Total Bilirubin 0.4 AST 34 ALT 31 Alkaline Phosphatase 63 Troponin I 0.02 D Total Protein 7.3 Albumin 4.3 Globulin 3.1 Albumin/Globulin Ratio 1.4 Arterial Blood Potassium 3.6 Venous Blood Potassium 08/10/17 08/10/17 09:10 10:07 WBC RBC Hgb Hct MCV MCH MCHC RDW Plt Count MPV pCO2 53 H pO2 90.0 185 H HCO3 22.7 ABG pH 7.24 L ABG Total CO2 24.3 ABG O2 Saturation 97.9 ABG Base Excess -5.2 L ABG Potassium 4.1 VBG pH 7.27 L VBG pCO2 52.0 VBG HCO3 23.9 VBG Total CO2 25.5 VBG O2 Sat (Calc) 98.6 H VBG Base Excess -3.6 L VBG Potassium 4.3 Sodium 138.0 137.0 Chloride 106.0 106.0 Glucose 240 H 238 H Lactate 4.4 H* 5.0 H* FiO2 40.0 21.0 Potassium Carbon Dioxide Anion Gap BUN Creatinine Est GFR ( Amer) Est GFR (Non-Af Amer) Random Glucose Calcium Total Bilirubin AST ALT Alkaline Phosphatase Troponin I Total Protein Albumin Globulin Albumin/Globulin Ratio Arterial Blood Potassium 4.1 Venous Blood Potassium 4.3 EKG/Cardiology Studies: Cardiology / EKG Studies 08/09/17 23:32 ELECTROCARDIOGRAM Stat Comment: Reason For Exam: RESPIRATORY DISTRESS Fingerstick Blood Sugar Results: 206 Critical Care Progress Note - Nutrition Nutrition: Nutrition Category Date Time Status NPO Diet [DIET] Diets 08/10/17 Breakfast Ordered Assessment/Plan - Assessment and Plan (Free Text) Assessment: 62F w/PMH sig for asthma admitted to ICU for acute hypercapneic respiratory failure s/p intubation/sedation, continues to require ICU care. Plan: Neuro Intubated Sedated Fentanyl Propofol Arousable CVS Trops neg x2 FU echo Cardio consulted Pulm ABG pH 7.24, pCO2 53, pO2 90, HCO3 22.7 On mech rip: PRVC 40%, PEEP 5, RR 14, TV 450 Duonebs Solu-medrol 40mg Q6H Daily ABGs Daily CXRs CXR today: No acute findings. Endotracheal tube terminates 3.2 cm proximal to the josé miguel. Pulm following Nephro Electrolytes WNL GI NPO Zofran Intubated FU UDS Endo BS 237 ISS Target euglycemia Accuchecks ID Afebrile over last 24H Leukocytosis 14.8 Lactate 5 from 4.4 FU Flu FU blood cx Rocephin Azithromycin Monitor Heme Stable MSK Restraints PRN while intubated Monitor for skin break down GI/DVT ppx Heparin Protonix Dispo Continue ICU care DW attending Janet, PGY-1 - Date & Time Date: 08/10/17 Time: 07:15 <Catina BELTRAN,Chalo H - Last Filed: 08/10/17 13:24> CCU Objective - Vital Signs / Intake & Output Vital Signs (Last 4 hours): Vital Signs Temp Pulse BP Pulse Ox 08/10/17 12:15 96 H 105/64 100 08/10/17 12:10 98 H 100 08/10/17 12:00 98.1 F 100 H 109/61 100 08/10/17 11:50 97 H 100 08/10/17 11:45 107 H 136/97 H 95 08/10/17 11:40 105 H 100 08/10/17 11:30 107 H 138/93 H 100 08/10/17 11:20 106 H 100 08/10/17 11:15 104 H 130/79 100 08/10/17 11:10 103 H 100 08/10/17 11:00 95 H 135/73 100 08/10/17 10:50 97 H 99 08/10/17 10:45 90 119/69 99 08/10/17 10:44 118/67 08/10/17 10:40 91 H 99 08/10/17 10:30 90 118/67 99 08/10/17 10:20 90 100 08/10/17 10:15 90 117/67 99 08/10/17 10:10 91 H 100 08/10/17 10:00 92 H 112/40 L 94 L 08/10/17 09:50 92 H 100 08/10/17 09:45 91 H 111/63 100 08/10/17 09:40 92 H 100 08/10/17 09:30 93 H 99/56 L 100 Intake and Output (Last 8hrs): Intake & Output 08/09/17 08/10/17 08/10/17 22:59 06:59 14:59 Intake Total 100 Balance 100 Weight 228 lb Intake: IV 100 - Medications Active Medications: Active Medications Generic Name Dose Route Start Last Admin Trade Name Freq PRN Reason Stop Dose Admin Albuterol/Ipratropium 3 ml 08/10/17 01:17 08/10/17 09:43 Duoneb 3 Mg/0.5 Mg (3 Ml) Ud IH 3 ml Q2H PRN Administration Shortness of Breath Albuterol/Ipratropium 3 ml 08/10/17 03:30 08/10/17 11:46 Duoneb 3 Mg/0.5 Mg (3 Ml) Ud IH 3 ml [id number] LINDA Administration Heparin Sodium (Porcine) 5,000 units 08/10/17 10:00 08/10/17 10:44 Heparin SC 5,000 units Q12 LINDA Administration Protocol Fentanyl Citrate 1,000 mcg in 100 mls @ 2 mls/hr 08/10/17 06:30 08/10/17 06: 50 Fentanyl Citrate/Sodium Chloride 1 Mg/100 Ml IV 20 mcg/hr .Q24H PRN 2 mls/hr TITRATE PER MD ORDER Administration Protocol 20 MCG/HR Propofol 1,000 mg in 100 mls @ 3.13 mls/hr 08/10/17 07:09 08/10/17 09:10 Diprivan IV 15 mcg/kg/min .Q24H PRN 9.389 mls/hr TITRATE PER MD ORDER Administration Protocol 5 MCG/KG/MIN Ceftriaxone Sodium 1 gm in 100 mls @ 100 mls/hr 08/10/17 10:30 08/10/17 10:44 Rocephin 1 Gram Ivpb IVPB 100 mls/hr DAILY LINDA Administration Protocol Azithromycin 500 mg in 250 mls @ 167 mls/hr 08/10/17 10:30 08/10/17 10:44 Zithromax 500mg In Ns IVPB 167 mls/hr DAILY [facility] [place] Administration Protocol Insulin Human Lispro 0 units 08/10/17 07:30 08/10/17 12:03 Humalog Med SC 1 units ACHS LINDA Administration Protocol Methylprednisolone 40 mg 08/10/17 12:00 08/10/17 12:10 Solu-Medrol IVP Not Given Q6 [facility] [place] Ondansetron HCl 4 mg 08/10/17 01:38 Zofran Inj IVP Q4H PRN Nausea/Vomiting Pantoprazole Sodium 40 mg 08/10/17 06:00 08/10/17 09:14 Protonix Ec Tab PO Not Given 0600 [facility] [place] - Patient Studies Lab Studies: Lab Studies 08/10/17 08/10/17 08/10/17 Range/Units 12:45 10:07 09:10 WBC (4.5-11.0) 10^3/ul RBC (3.5-6.1) 10^6/uL Hgb (12.0-16.0) g/dL Hct (36.0-48.0) % MCV (80.0-105.0) fl MCH (25.0-35.0) pg MCHC (31.0-37.0) g/dl RDW (11.5-14.5) % Plt Count (120.0-450.0) 10^3/uL MPV (7.0-11.0) fl pCO2 48 H 53 H (35-45) mm/Hg pO2 85.0 185 H 90.0 (80-100) mm/Hg HCO3 24.2 22.7 (21-28) mmol/L ABG pH 7.31 L 7.24 L (7.35-7.45) ABG Total CO2 25.7 24.3 (22-28) mmol.L ABG O2 Saturation 98.0 97.9 (95-98) % ABG Base Excess -2.5 L -5.2 L (-2.0-3.0) mmol/L ABG Potassium 3.8 4.1 (3.6-5.2) mmol/L VBG pH 7.27 L (7.32-7.43) VBG pCO2 52.0 (40-60) VBG HCO3 23.9 (21-28) mmol/l VBG Total CO2 25.5 (22-28) mmol.L VBG O2 Sat (Calc) 98.6 H (40-65) % VBG Base Excess -3.6 L (0.0-2.0) mmol/L VBG Potassium 4.3 (3.6-5.2) mmol/L Sodium 139.0 137.0 138.0 (132-148) mmol/L Chloride 106.0 106.0 106.0 (98-107) mmol/L Glucose 206 H 238 H 240 H (65-105) mg/dl Lactate 2.9 H 5.0 H* 4.4 H* (0.7-2.1) mmol/L FiO2 40.0 21.0 40.0 % Potassium (3.6-5.0) mmol/L Carbon Dioxide (21-33) mmol/L Anion Gap (10-20) BUN (7-21) mg/dL Creatinine (0.5-1.4) mg/dL Est GFR ( Amer) Est GFR (Non-Af Amer) Random Glucose (70-110) mg/dL Calcium (8.4-10.5) mg/dL Total Bilirubin (0.2-1.3) mg/dL AST (14-36) U/L ALT (7-56) U/L Alkaline Phosphatase (38-126) U/L Troponin I ng/mL Total Protein (5.8-8.3) g/dL Albumin (3.0-4.8) g/dL Globulin gm/dL Albumin/Globulin Ratio (1.1-1.8) Arterial Blood Potassium 3.8 4.1 (3.6-5.2) mmol/L Venous Blood Potassium 4.3 (3.6-5.2) mmol/L 08/10/17 08/10/17 08/10/17 Range/Units 08:30 08:30 05:10 WBC 14.8 H (4.5-11.0) 10^3/ul RBC 4.19 (3.5-6.1) 10^6/uL Hgb 11.6 L (12.0-16.0) g/dL Hct 36.4 (36.0-48.0) % MCV 86.9 (80.0-105.0) fl MCH 27.7 (25.0-35.0) pg MCHC 31.9 (31.0-37.0) g/dl RDW 13.6 (11.5-14.5) % Plt Count 245 (120.0-450.0) 10^3/uL MPV 9.3 (7.0-11.0) fl pCO2 46 H (35-45) mm/Hg pO2 161.0 H (80-100) mm/Hg HCO3 20.2 L (21-28) mmol/L ABG pH 7.25 L (7.35-7.45) ABG Total CO2 21.6 L (22-28) mmol.L ABG O2 Saturation 99.1 H (95-98) % ABG Base Excess -7.0 L (-2.0-3.0) mmol/L ABG Potassium 3.6 (3.6-5.2) mmol/L VBG pH (7.32-7.43) VBG pCO2 (40-60) VBG HCO3 (21-28) mmol/l VBG Total CO2 (22-28) mmol.L VBG O2 Sat (Calc) (40-65) % VBG Base Excess (0.0-2.0) mmol/L VBG Potassium (3.6-5.2) mmol/L Sodium 143 138.0 (132-148) mmol/L Chloride 104 106.0 (98-107) mmol/L Glucose 255 H (65-105) mg/dl Lactate 5.8 H* (0.7-2.1) mmol/L FiO2 40.0 % Potassium 4.2 (3.6-5.0) mmol/L Carbon Dioxide 22 (21-33) mmol/L Anion Gap 21 H (10-20) BUN 14 (7-21) mg/dL Creatinine 1.2 (0.5-1.4) mg/dL Est GFR ( Amer) 55 Est GFR (Non-Af Amer) 46 Random Glucose 237 H (70-110) mg/dL Calcium 8.5 (8.4-10.5) mg/dL Total Bilirubin 0.4 (0.2-1.3) mg/dL AST 34 (14-36) U/L ALT 31 (7-56) U/L Alkaline Phosphatase 63 (38-126) U/L Troponin I 0.02 D ng/mL Total Protein 7.3 (5.8-8.3) g/dL Albumin 4.3 (3.0-4.8) g/dL Globulin 3.1 gm/dL Albumin/Globulin Ratio 1.4 (1.1-1.8) Arterial Blood Potassium 3.6 (3.6-5.2) mmol/L Venous Blood Potassium (3.6-5.2) mmol/L Laboratory Results - last 24 hr 08/10/17 08/10/17 08/10/17 05:10 08:30 08:30 WBC 14.8 H RBC 4.19 Hgb 11.6 L Hct 36.4 MCV 86.9 MCH 27.7 MCHC 31.9 RDW 13.6 Plt Count 245 MPV 9.3 pCO2 46 H pO2 161.0 H HCO3 20.2 L ABG pH 7.25 L ABG Total CO2 21.6 L ABG O2 Saturation 99.1 H ABG Base Excess -7.0 L ABG Potassium 3.6 VBG pH VBG pCO2 VBG HCO3 VBG Total CO2 VBG O2 Sat (Calc) VBG Base Excess VBG Potassium Sodium 138.0 143 Chloride 106.0 104 Glucose 255 H Lactate 5.8 H* FiO2 40.0 Potassium 4.2 Carbon Dioxide 22 Anion Gap 21 H BUN 14 Creatinine 1.2 Est GFR ( Amer) 55 Est GFR (Non-Af Amer) 46 Random Glucose 237 H Calcium 8.5 Total Bilirubin 0.4 AST 34 ALT 31 Alkaline Phosphatase 63 Troponin I 0.02 D Total Protein 7.3 Albumin 4.3 Globulin 3.1 Albumin/Globulin Ratio 1.4 Arterial Blood Potassium 3.6 Venous Blood Potassium 08/10/17 08/10/17 08/10/17 09:10 10:07 12:45 WBC RBC Hgb Hct MCV MCH MCHC RDW Plt Count MPV pCO2 53 H 48 H pO2 90.0 185 H 85.0 HCO3 22.7 24.2 ABG pH 7.24 L 7.31 L ABG Total CO2 24.3 25.7 ABG O2 Saturation 97.9 98.0 ABG Base Excess -5.2 L -2.5 L ABG Potassium 4.1 3.8 VBG pH 7.27 L VBG pCO2 52.0 VBG HCO3 23.9 VBG Total CO2 25.5 VBG O2 Sat (Calc) 98.6 H VBG Base Excess -3.6 L VBG Potassium 4.3 Sodium 138.0 137.0 139.0 Chloride 106.0 106.0 106.0 Glucose 240 H 238 H 206 H Lactate 4.4 H* 5.0 H* 2.9 H FiO2 40.0 21.0 40.0 Potassium Carbon Dioxide Anion Gap BUN Creatinine Est GFR ( Amer) Est GFR (Non-Af Amer) Random Glucose Calcium Total Bilirubin AST ALT Alkaline Phosphatase Troponin I Total Protein Albumin Globulin Albumin/Globulin Ratio Arterial Blood Potassium 4.1 3.8 Venous Blood Potassium 4.3 EKG/Cardiology Studies: Cardiology / EKG Studies 08/09/17 23:32 ELECTROCARDIOGRAM Stat Comment: Reason For Exam: RESPIRATORY DISTRESS Critical Care Progress Note - Nutrition Nutrition: Nutrition Category Date Time Status NPO Diet [DIET] Diets 08/10/17 Breakfast Ordered Attending/Attestation - Attestation I have personally seen and examined this patient.: Yes I have fully participated in the care of the patient.: Yes I have reviewed all pertinent clinical information: Yes Notes (Text): 08/10/17 13:21 62 y/o F w/ Acute respiratory failure Unclar cause for her Resp failure . Will need family HPI and PCP records. Unclear Asthma or obstructive lung disease history Given > 10 Nebulizer treatments and Positive pressure ventilation until intubation early this morning . On the vent ac/vc low TV and Low RR, PCO2 elevated but actively wheezing. Restarted on Solumedrol and nebulizers as needed. Sedation also increased to prevent vent dysynchrony . Repeat ABG needed in 4 hrs. Empiric abx given, although lactate likely from multiple albuterol use. dvt p cc time 65 min
[2017-08-10 12:50] LABS: ARTERIAL BLOOD GAS HCO3 24.2 mmol/L (21-28); ARTERIAL BLOOD GAS PH 7.31 (7.35-7.45)
--- NOTE | 2017-08-10 13:11 | CON ---
REASON FOR CONSULTATION: Respiratory failure. REFERRING PHYSICIAN: Krish Sims MD History is obtained via extensive discussion with the medical residents. I have also discussed the case with Dr. Dominique (ICU) at length. I have also reviewed the chart at length. The patient is currently intubated and sedated. The patient is a 62-year-old female with past medical history significant for hypertension, diabetes mellitus, hyperlipidemia, questionable asthma, who presents to [facility] with worsening shortness of breath at rest, dyspnea on exertion, cough, and minimal sputum production for the past week. There is also an ER notation--- that the patient did experience chest tightness. There is no history of chest pain, coughing up of blood, or chest pain - made worse with deep respirations. There is no history of temperatures, chills, or infectious exposure. There is no history of night sweats, weight loss, or appetite change prior to the above events. No history of leg or calf pains. No history of syncope or diaphoresis. No history of recent travel or trauma. Again, I did discuss the case with the medical residents, business writer, and respiratory therapist at length. Apparently, shortly after admission, the patient was tried on BiPAP. However, the patient did experience severe shortness of breath this morning and was subsequently intubated for airway protection. I am asked to evaluate on this case for additional ventilator management. REVIEW OF SYSTEMS: No history of nausea, vomiting, or diarrhea. No acute urinary symptoms. No new neurologic or musculoskeletal complaints. Rest of the review of systems is negative. ALLERGIES: NO KNOWN ALLERGIES. SOCIAL HISTORY: Negative for tobacco. Negative for alcohol. FAMILY HISTORY: No inheritable diseases. MEDICATIONS: Home medications include Altace, Glucophage, Augmentin, Zocor, Neurontin. PHYSICAL EXAMINATION: GENERAL: The patient is currently intubated and sedated. VITAL SIGNS: Temperature is 98.1, pulse 107, respiratory rate 18/14, blood pressure 123/57. HEENT: Normocephalic and atraumatic. No JVD. CARDIOVASCULAR Positive S1 and S2. No S3 gallop. LUNGS: Diffuse rhonchi and wheezing bilaterally. EXTREMITIES: No clubbing, cyanosis, or edema. GI: Abdomen is soft, nondistended. Bowel sounds are positive. SKIN: No acute rash. NEUROLOGIC: Exam limited at the present time. PERTINENT LABORATORY DATA: Chest x-ray was done this morning and reviewed. There is a questionable mild increase in the pulmonary vascular congestive changes. Otherwise, I do not appreciate any significant infiltrates. Arterial blood gas was less done on BiPAP this morning. Results are: pH 7.25, pCO2 46, pO2 of 161. CBC: White count 12.7, hemoglobin 12.6, hematocrit 38.4, platelets of 276. Complete metabolic profile: Potassium 3.5, glucose 198, creatinine kinase 696. Rest of the metabolic profile is within normal limits. IMPRESSION: 1. Respiratory failure. 2. Acute bronchitis. 3. Acute bronchospasm. 4. Questionable history of asthma. 5. Diabetes mellitus. PLAN: Again, I did discuss the case with the medical residents, business writer, and nurse at length. The patient presents to [facility] with a 1-week history of worsening pulmonary symptoms. Apparently, she was initially tried on BiPAP. However, again, early this morning, she experienced severe shortness of breath and was intubated for airway protection. I did review the chest x-ray as above. The chest x-ray reveals a questionable mild increase in the pulmonary vascular congestive changes. Otherwise, there are no significant infiltrates noted. I have also reviewed the last arterial blood gas. A mixed metabolic and respiratory acidosis is noted. A repeat arterial blood gas has been ordered for later this morning. On physical exam, there is significant bronchospasm noted. I will continue the current nebulizer treatments and increase the intravenous steroids this morning. Parada cultures have been ordered, and will be analyzed when feasible. The patient has been placed on antibiotic therapy. Procalcitonin level has also been ordered. The patient is critically ill at the present time, with guarded prognosis. I did discuss the case with Dr. Sims this morning. I have also discussed the case with the ICU team this morning. Thank you very much for this pulmonary consultation. James Mayberry MD [facility]
--- NOTE | 2017-08-10 14:08 | RAD ---
HISTORY: assess NGT placement COMPARISON: 08/10/2017 FINDINGS: The endotracheal tube terminates 4 cm proximal to the josé miguel. The nasogastric tube terminates in the stomach. LUNGS: The lungs are well inflated and clear. No focal consolidation. There is bibasilar atelectasis. PLEURA: No significant pleural effusion identified, no pneumothorax apparent. CARDIOVASCULAR: Normal. OSSEOUS STRUCTURES: No significant abnormalities. VISUALIZED UPPER ABDOMEN: Normal. OTHER FINDINGS: None. IMPRESSION: No acute findings.
--- NOTE | 2017-08-10 14:11 | PCM.PROC ---
Procedures Attestation:: I certify that I have explained the specified Operation(s) or Procedure(s), risks, benefits and reasonable alternatives to the Patient and/or other person responsible. The opportunity was given to ask questions and all questions answered - Intubation Sedative: Other Laryngoscope: Mayuri Assist Device Used: Bougie ET Tube Size: 8.0 (I gave order to intubate patient this morning (and was at bedside when respiratory therapist, Devante Melgar) ET Tube Uncuffed: No ET Tube Secured Locarion: Teeth ET Tube Placement Confirmation: Visualized Passing Through Cords, Breath Sounds Equal Bilaterally, No Breath Sounds Over Epigastrum, Confirmation w/Capnometry Patient Tolerated Procedure: Well, No Complications Procedure Immediate Complications: None Additional comments: After giving order for intubation this morning, I was present at bedside and assisted when respiratory therapist, Rio Chavez, intubated the patient. There were no complications and the patient tolerated the procedure well. Post- intubation, the patient required Fentanyl drip (in addition to Propofol drip) for adequate sedation.
[2017-08-10 14:35] LABS: VENOUS BLOOD GAS BASE EXCESS 1.7 mmol/L (0.0-2.0); VENOUS BLOOD PH 7.39 (7.32-7.43)
[2017-08-10 16:08] LABS: PH,URINE 5.5 (4.7-8.0); URINE BILIRUBIN NEGATIVE (NEGATIVE); URINE BLOOD NEGATIVE (NEGATIVE); URINE GLUCOSE (UA) NEGATIVE (NEGATIVE); URINE KETONE NEGATIVE (NEGATIVE); URINE LEUKOCYTE ESTERASE NEGATIVE Leu/uL (NEGATIVE); URINE PROTEIN NEGATIVE mg/dL (<30 mg/dL); URINE UROBILINOGEN 0.2 E.U./dL (<1 E.U./dL)
[2017-08-10 16:12] LABS: URINE APPEARANCE CLEAR (CLEAR); URINE COLOR YELLOW (YELLOW)
[2017-08-10 16:50] LABS: ARTERIAL BLOOD GAS O2 CONTENT 15.5 ML/dl (15-23); ARTERIAL BLOOD GAS PH 7.38 (7.35-7.45); ARTERIAL BLOOD HGB O2 SAT 94.4 % (95.0-98.0); HHB 3.2 % (0-5); METHEMOGLOBIN 1.5 % (0.0-3.0)
--- NOTE | 2017-08-10 18:42 | CON ---
DATE: 08/10/2017 HISTORY OF PRESENT ILLNESS: The patient is a 62-year-old woman who presented with acute wheezing and dyspnea and was intubated in the emergency room. PAST MEDICAL HISTORY: Includes diabetes mellitus, hypertension and hypercholesterolemia. There is a questionable history of asthma in the past. The rest of her history is unobtainable since the patient is intubated and sedated. PHYSICAL EXAMINATION: GENERAL: The patient is on a ventilator, sedated. She is obese. VITAL SIGNS: Blood pressure is 118/67, heart rate is in the 90s, normal sinus rhythm. NECK: Negative JVD. Lungs: Decreased breath sounds without wheezing. HEART: Reveal S1, S2. EXTREMITIES: Without edema. LABORATORY DATA: EKG shows normal sinus rhythm with no acute changes. Hemoglobin is 11.6, white count is 14.8. Chemistries: The glucose is 238 with BUN and creatinine is unremarkable. Troponins are negative x2. The ProBNP is 129. Chest x-ray on admission revealed no active pulmonary disease. IMPRESSION: 1. Respiratory failure. 2. Bronchospasm. 3. No evidence for acute coronary syndrome. 4. No evidence for congestive heart failure. 5. Diabetes mellitus. 6. Hypertension. 7. Hypercholesterolemia. PLAN: Given these findings, there is no evidence for LV dysfunction contribution to her dyspnea. We will obtain an echocardiogram to evaluate her LV function. Mark Serrano MD
[2017-08-11] MEDS: Albuterol-Ipratrop 3 mg / 0.5 (3 ml) UD IH SCH ×6 (00:04→19:50)
[2017-08-11] MEDS: Propofol 10 mg/ml 1,000 MG/100 ML VIAL IV PRN (05:06)
[2017-08-11] MEDS ORDERED: Pantoprazole 40 mg Susp UD PO SCH (05:14)
[2017-08-11 05:34] LABS: ARTERIAL BLOOD GAS HCO3 27.2 mmol/L (21-28); ARTERIAL BLOOD GAS O2 CAPACITY 16.1 mL/dl (16-24); ARTERIAL BLOOD GAS O2 CONTENT 15.8 ML/dl (15-23); ARTERIAL BLOOD GAS PH 7.39 (7.35-7.45); ARTERIAL BLOOD HGB O2 SAT 96.1 % (95.0-98.0); CARBOXYHEMOGLOBIN 1.1 % (0.5-1.5); HHB 1.7 % (0-5)
[2017-08-11] MEDS: MethylPREDNISolone 40 mg Vial IVP SCH ×3 (05:36→17:49)
[2017-08-11 05:48] LABS: BASO # 0.01 K/mm3 (0.0-2.0); BASO % 0.1 % (0.0-3.0); EOS % 0.1 % (1.5-5.0); GRAN # 14.21 (1.4-6.5); GRAN % 85.9 % (50.0-68.0); HEMATOCRIT 35.3 % (36.0-48.0); LYMPH # 1.6 (1.2-3.4); LYMPH % 9.4 % (22.0-35.0); MEAN CELL VOLUME 84.7 fl (80.0-105.0); MEAN CORPUSCULAR HEMOGLOBIN 27.3 pg (25.0-35.0); MEAN CORPUSCULAR HGB CONC 32.3 g/dl (31.0-37.0); MEAN PLATELET VOLUME 9.5 fl (7.0-11.0); MONO # 0.8 (0.1-0.6); MONO % 4.5 % (1.0-6.0); RED CELL DISTRIBUTION WIDTH 13.9 % (11.5-14.5); WHITE BLOOD COUNT 16.5 10^3/ul (4.5-11.0)
[2017-08-11 05:51] LABS: ALB/GLOB RATIO 1.4 (1.1-1.8); ALKALINE PHOSPHATASE 65 U/L (38-126); ALT/SGPT 35 U/L (7-56); AST/SGOT 22 U/L (14-36); BILIRUBIN,TOTAL 0.4 mg/dL (0.2-1.3); BLOOD UREA NITROGEN 19 mg/dL (7-21); CALCIUM 9.1 mg/dL (8.4-10.5); CARBON DIOXIDE 25 mmol/L (21-33); CHLORIDE 104 mmol/L (98-107); GFR AFRICAN-AMERICAN > 60; GLUCOSE,RANDOM 201 mg/dL (70-110); PHOSPHOROUS 4.4 mg/dL (2.5-4.5); POTASSIUM 3.9 mmol/L (3.6-5.0); SODIUM 143 mmol/L (132-148); TOTAL PROTEIN 7.1 g/dL (5.8-8.3)
[2017-08-11] MEDS: Fentanyl 1000mcg/100ml NS 1,000 MCG/100 ML BAG IV PRN (06:23)
--- NOTE | 2017-08-11 07:28 | CARD ---
APPROVED REPORT EXAM: Two-dimensional and M-mode echocardiogram with Doppler and color Doppler. Other Information Quality : PoorRhythm : INDICATION Congestive Heart Failure 2D DIMENSIONS Left Atrium (2D)4.0 (1.6-4.0cm)IVSd1.1 (0.7-1.1cm) LVDd3.7 (3.9-5.9cm)PWd1.0 (0.7-1.1cm) LVDs2.6 (2.5-4.0cm)FS (%) 29.9 % LVEF (%)57.0 (>50%) M-Mode DIMENSIONS Aortic Root2.40 (2.2-3.7cm)Aortic Cusp Exc.1.70 (1.5-2.0cm) Aortic Valve AoV Peak Oyglxjcx245.0cm/s Mitral Valve E/A ratio0.0 TDI E/Lateral E'0.0E/Medial E'0.0 Tricuspid Valve TR Peak [id number]/sRAP [id number] Peak Gr.20mmHg [id number] LEFT VENTRICLE The left ventricle is normal size. There is normal left ventricular wall thickness. The left ventricular function is normal. The left ventricular ejection fraction is within the normal range. RIGHT VENTRICLE The right ventricle is normal size. ATRIA The left atrium size is normal. The right atrium is not well visualized. AORTIC VALVE The aortic valve is normal in structure. MITRAL VALVE The mitral valve is normal in structure. TRICUSPID VALVE The tricuspid valve is not well visualized. There is mild tricuspid regurgitation. PULMONIC VALVE The pulmonic valve is not well visualized. GREAT VESSELS The aortic root is normal in size. PERICARDIAL EFFUSION There is no pericardial effusion. <Conclusion> This is a limited study done in the ICU on vented patient. The left ventricle is normal size. There is normal left ventricular wall thickness. The left ventricular function appears normal (but views are limited).
[2017-08-11] MEDS: Insulin Lispro (humaLOG) MEDIUM Coverage SC SCH ×4 (08:13→22:49)
--- NOTE | 2017-08-11 09:23 | CP.CCUPN ---
CCU Subjective - Physician Review Events Since Last Encounter (Free Text): 08/11/17 09:20 62 y/o F w/ Acute respiratory failure secondary to obstructive lung disease Vent parameters improved, wheezing has improved although present. Will try sedation vacation and PS trial today CCU Objective - Vital Signs / Intake & Output Vital Signs (Last 4 hours): Vital Signs Pulse BP Pulse Ox 08/11/17 08:13 123/70 08/11/17 06:45 56 L 124/71 100 08/11/17 06:40 55 L 100 08/11/17 06:30 57 L 126/78 99 08/11/17 06:20 58 L 99 08/11/17 06:15 56 L 125/72 99 08/11/17 06:10 57 L 98 08/11/17 06:00 55 L 123/72 100 08/11/17 05:50 56 L 100 08/11/17 05:45 57 L 123/73 100 08/11/17 05:40 59 L 100 08/11/17 05:30 57 L 120/72 99 Intake and Output (Last 8hrs): Intake & Output 08/10/17 08/11/17 08/11/17 22:59 06:59 14:59 Intake Total 712 806 Output Total 300 550 Balance 412 256 Intake: IV 712 806 Diprivan 141 fentanyl 80 406 meds 350 Output: Urine 300 550 Urine, Voided 300 550 Other: # Voids Urine, Voided 3 - Physical Exam Narrative Physical Exam (Free Text): 08/11/17 09:21 intubated, sedated. Physical Exam Limitations: Positive for: Altered Mental Status - Medications Active Medications: Active Medications Generic Name Dose Route Start Last Admin Trade Name Freq PRN Reason Stop Dose Admin Albuterol/Ipratropium 3 ml 08/10/17 01:17 08/10/17 09:43 Duoneb 3 Mg/0.5 Mg (3 Ml) Ud IH 3 ml Q2H PRN Administration Shortness of Breath Albuterol/Ipratropium 3 ml 08/10/17 03:30 08/11/17 08:31 Duoneb 3 Mg/0.5 Mg (3 Ml) Ud IH 3 ml [id number] LINDA Administration Heparin Sodium (Porcine) 5,000 units 08/10/17 10:00 08/10/17 22:30 Heparin SC 5,000 units Q12 LINDA Administration Protocol Fentanyl Citrate 1,000 mcg in 100 mls @ 2 mls/hr 08/10/17 06:30 08/11/17 06: 23 Fentanyl Citrate/Sodium Chloride 1 Mg/100 Ml IV 150 mcg/hr .Q24H PRN 15 mls/hr TITRATE PER MD ORDER Administration Protocol 20 MCG/HR Propofol 1,000 mg in 100 mls @ 3.13 mls/hr 08/10/17 07:09 08/11/17 05:06 Diprivan IV 30 mcg/kg/min .Q24H PRN 18.779 mls/hr TITRATE PER MD ORDER Administration Protocol 5 MCG/KG/MIN Ceftriaxone Sodium 1 gm in 100 mls @ 100 mls/hr 08/10/17 10:30 08/10/17 10:44 Rocephin 1 Gram Ivpb IVPB 100 mls/hr DAILY LINDA Administration Protocol Azithromycin 500 mg in 250 mls @ 167 mls/hr 08/10/17 10:30 08/10/17 10:44 Zithromax 500mg In Ns IVPB 167 mls/hr DAILY LINDA Administration Protocol Insulin Human Lispro 0 units 08/10/17 07:30 08/11/17 08:13 Humalog Med SC 3 units ACHS [facility] Administration Protocol Methylprednisolone 40 mg 08/10/17 12:00 08/11/17 05:36 Solu-Medrol IVP 40 mg Q6 LINDA Administration Ondansetron HCl 4 mg 08/10/17 01:38 Zofran Inj IVP Q4H PRN Nausea/Vomiting Pantoprazole Sodium 40 mg 08/11/17 05:14 08/11/17 05:36 Protonix Susp PO 40 mg 0600 LINDA Administration - Patient Studies Lab Studies: Lab Studies 08/11/17 08/11/17 08/11/17 Range/Units 08:06 05:25 05:20 WBC (4.5-11.0) 10^3/ul RBC (3.5-6.1) 10^6/uL Hgb (12.0-16.0) g/dL Hct (36.0-48.0) % MCV (80.0-105.0) fl MCH (25.0-35.0) pg MCHC (31.0-37.0) g/dl RDW (11.5-14.5) % Plt Count (120.0-450.0) 10^3/uL MPV (7.0-11.0) fl Gran % (50.0-68.0) % Lymph % (Auto) (22.0-35.0) % [place] % (Auto) (1.0-6.0) % Eos % (Auto) (1.5-5.0) % Baso % (Auto) (0.0-3.0) % Gran # (1.4-6.5) Lymph # (1.2-3.4) [place] # (0.1-0.6) Eos # (0.0-0.7) Baso # (0.0-2.0) K/mm3 pCO2 45 (35-45) mm/Hg pO2 104.0 H (30-55) mm/Hg HCO3 27.2 (21-28) mmol/L ABG pH 7.39 (7.35-7.45) ABG Total CO2 28.6 H (22-28) mmol.L ABG O2 Saturation 98.3 H (95-98) % ABG O2 Content 15.8 (15-23) ML/dl ABG Base Excess 1.8 (-2.0-3.0) mmol/L ABG Hemoglobin 11.6 L (11.7-17.4) g/dL ABG Carboxyhemoglobin 1.1 (0.5-1.5) % POC ABG HHb (Measured) 1.7 (0-5) % ABG Methemoglobin 1.0 (0.0-3.0) % ABG O2 Capacity 16.1 (16-24) mL/dl ABG Potassium (3.6-5.2) mmol/L VBG pH (7.32-7.43) VBG pCO2 (40-60) VBG HCO3 (21-28) mmol/l VBG Total CO2 (22-28) mmol.L VBG O2 Sat (Calc) (40-65) % VBG Base Excess (0.0-2.0) mmol/L VBG Potassium (3.6-5.2) mmol/L Hgb O2 Saturation 96.1 (95.0-98.0) % Sodium 143 (132-148) mmol/L Chloride 104 (98-107) mmol/L Glucose (65-105) mg/dl Lactate (0.7-2.1) mmol/L FiO2 40.0 % Potassium 3.9 (3.6-5.0) mmol/L Carbon Dioxide 25 (21-33) mmol/L Anion Gap 18 (10-20) BUN 19 (7-21) mg/dL Creatinine 0.9 (0.5-1.4) mg/dL Est GFR ( Amer) > 60 Est GFR (Non-Af Amer) > 60 POC Glucose (mg/dL) 205 H (65-110) mg/dL Random Glucose 201 H (70-110) mg/dL Calcium 9.1 (8.4-10.5) mg/dL Phosphorus 4.4 (2.5-4.5) mg/dL Magnesium 2.0 (1.7-2.2) mg/dL Total Bilirubin 0.4 (0.2-1.3) mg/dL AST 22 (14-36) U/L ALT 35 (7-56) U/L Alkaline Phosphatase 65 (38-126) U/L Total Protein 7.1 (5.8-8.3) g/dL Albumin 4.1 (3.0-4.8) g/dL Globulin 3.0 gm/dL Albumin/Globulin Ratio 1.4 (1.1-1.8) Arterial Blood Potassium (3.6-5.2) mmol/L Venous Blood Potassium (3.6-5.2) mmol/L Urine Color (YELLOW) Urine Appearance (CLEAR) Urine pH (4.7-8.0) Ur Specific [place] (1.005-1.035) Urine Protein (<30 mg/dL) mg/dL Urine Glucose (UA) (NEGATIVE) mg/dL Urine Ketones (NEGATIVE) mg/dL Urine Blood (NEGATIVE) Urine Nitrate (NEGATIVE) Urine Bilirubin (NEGATIVE) Urine Urobilinogen (<1 E.U./dL) E.U./dL Ur Leukocyte Esterase (NEGATIVE) Nevae[place]/uL Urine Opiates Screen (NEGATIVE) Urine Methadone Screen (NEGATIVE) Ur Barbiturates Screen (NEGATIVE) Ur Phencyclidine Scrn (NEGATIVE) Ur Amphetamines Screen (NEGATIVE) U Benzodiazepines Scrn (NEGATIVE) U Oth Cocaine Metabols (NEGATIVE) U Cannabinoids Screen (NEGATIVE) 08/11/17 08/10/17 08/10/17 Range/Units 05:20 21:55 16:47 WBC 16.5 H (4.5-11.0) 10^3/ul RBC 4.17 (3.5-6.1) 10^6/uL Hgb 11.4 L (12.0-16.0) g/dL Hct 35.3 L (36.0-48.0) % MCV 84.7 (80.0-105.0) fl MCH 27.3 (25.0-35.0) pg MCHC 32.3 (31.0-37.0) g/dl RDW 13.9 (11.5-14.5) % Plt Count 246 (120.0-450.0) 10^3/uL MPV 9.5 (7.0-11.0) fl Gran % 85.9 H (50.0-68.0) % Lymph % (Auto) 9.4 L (22.0-35.0) % [place] % (Auto) 4.5 (1.0-6.0) % Eos % (Auto) 0.1 L (1.5-5.0) % Baso % (Auto) 0.1 (0.0-3.0) % Gran # 14.21 H (1.4-6.5) Lymph # 1.6 (1.2-3.4) [place] # 0.8 H (0.1-0.6) Eos # 0.0 (0.0-0.7) Baso # 0.01 (0.0-2.0) K/mm3 pCO2 44 (35-45) mm/Hg pO2 75.0 L (30-55) mm/Hg HCO3 26.0 (21-28) mmol/L ABG pH 7.38 (7.35-7.45) ABG Total CO2 27.4 (22-28) mmol.L ABG O2 Saturation 96.7 (95-98) % ABG O2 Content 15.5 (15-23) ML/dl ABG Base Excess 0.6 (-2.0-3.0) mmol/L ABG Hemoglobin 11.6 L (11.7-17.4) g/dL ABG Carboxyhemoglobin 1.0 (0.5-1.5) % POC ABG HHb (Measured) 3.2 (0-5) % ABG Methemoglobin 1.5 (0.0-3.0) % ABG O2 Capacity 16.0 (16-24) mL/dl ABG Potassium (3.6-5.2) mmol/L VBG pH (7.32-7.43) VBG pCO2 (40-60) VBG HCO3 (21-28) mmol/l VBG Total CO2 (22-28) mmol.L VBG O2 Sat (Calc) (40-65) % VBG Base Excess (0.0-2.0) mmol/L VBG Potassium (3.6-5.2) mmol/L Hgb O2 Saturation 94.4 L (95.0-98.0) % Sodium (132-148) mmol/L Chloride (98-107) mmol/L Glucose (65-105) mg/dl Lactate (0.7-2.1) mmol/L FiO2 40.0 % Potassium (3.6-5.0) mmol/L Carbon Dioxide (21-33) mmol/L Anion Gap (10-20) BUN (7-21) mg/dL Creatinine (0.5-1.4) mg/dL Est GFR ( Amer) Est GFR (Non-Af Amer) POC Glucose (mg/dL) 185 H (65-110) mg/dL Random Glucose (70-110) mg/dL Calcium (8.4-10.5) mg/dL Phosphorus (2.5-4.5) mg/dL Magnesium (1.7-2.2) mg/dL Total Bilirubin (0.2-1.3) mg/dL AST (14-36) U/L ALT (7-56) U/L Alkaline Phosphatase (38-126) U/L Total Protein (5.8-8.3) g/dL Albumin (3.0-4.8) g/dL Globulin gm/dL Albumin/Globulin Ratio (1.1-1.8) Arterial Blood Potassium (3.6-5.2) mmol/L Venous Blood Potassium (3.6-5.2) mmol/L Urine Color (YELLOW) Urine Appearance (CLEAR) Urine pH (4.7-8.0) Ur Specific [place] (1.005-1.035) Urine Protein (<30 mg/dL) mg/dL Urine Glucose (UA) (NEGATIVE) mg/dL Urine Ketones (NEGATIVE) mg/dL Urine Blood (NEGATIVE) Urine Nitrate (NEGATIVE) Urine Bilirubin (NEGATIVE) Urine Urobilinogen (<1 E.U./dL) E.U./dL Ur Leukocyte Esterase (NEGATIVE) [place]/uL Urine Opiates Screen (NEGATIVE) Urine Methadone Screen (NEGATIVE) Ur Barbiturates Screen (NEGATIVE) Ur Phencyclidine Scrn (NEGATIVE) Ur Amphetamines Screen (NEGATIVE) U Benzodiazepines Scrn (NEGATIVE) U Oth Cocaine Metabols (NEGATIVE) U Cannabinoids Screen (NEGATIVE) 08/10/17 08/10/17 08/10/17 Range/Units 15:50 14:45 14:45 WBC (4.5-11.0) 10^3/ul RBC (3.5-6.1) 10^6/uL Hgb (12.0-16.0) g/dL Hct (36.0-48.0) % MCV (80.0-105.0) fl MCH (25.0-35.0) pg MCHC (31.0-37.0) g/dl RDW (11.5-14.5) % Plt Count (120.0-450.0) 10^3/uL MPV (7.0-11.0) fl Gran % (50.0-68.0) % Lymph % (Auto) (22.0-35.0) % [place] % (Auto) (1.0-6.0) % Eos % (Auto) (1.5-5.0) % Baso % (Auto) (0.0-3.0) % Gran # (1.4-6.5) Lymph # (1.2-3.4) [place] # (0.1-0.6) Eos # (0.0-0.7) Baso # (0.0-2.0) K/mm3 pCO2 (35-45) mm/Hg pO2 (30-55) mm/Hg HCO3 (21-28) mmol/L ABG pH (7.35-7.45) ABG Total CO2 (22-28) mmol.L ABG O2 Saturation (95-98) % ABG O2 Content (15-23) ML/dl ABG Base Excess (-2.0-3.0) mmol/L ABG Hemoglobin (11.7-17.4) g/dL ABG Carboxyhemoglobin (0.5-1.5) % POC ABG HHb (Measured) (0-5) % ABG Methemoglobin (0.0-3.0) % ABG O2 Capacity (16-24) mL/dl ABG Potassium (3.6-5.2) mmol/L VBG pH (7.32-7.43) VBG pCO2 (40-60) VBG HCO3 (21-28) mmol/l VBG Total CO2 (22-28) mmol.L VBG O2 Sat (Calc) (40-65) % VBG Base Excess (0.0-2.0) mmol/L VBG Potassium (3.6-5.2) mmol/L Hgb O2 Saturation (95.0-98.0) % Sodium (132-148) mmol/L Chloride (98-107) mmol/L Glucose (65-105) mg/dl Lactate (0.7-2.1) mmol/L FiO2 % Potassium (3.6-5.0) mmol/L Carbon Dioxide (21-33) mmol/L Anion Gap (10-20) BUN (7-21) mg/dL Creatinine (0.5-1.4) mg/dL Est GFR ( Amer) Est GFR (Non-Af Amer) POC Glucose (mg/dL) 201 H (65-110) mg/dL Random Glucose (70-110) mg/dL Calcium (8.4-10.5) mg/dL Phosphorus (2.5-4.5) mg/dL Magnesium (1.7-2.2) mg/dL Total Bilirubin (0.2-1.3) mg/dL AST (14-36) U/L ALT (7-56) U/L Alkaline Phosphatase (38-126) U/L Total Protein (5.8-8.3) g/dL Albumin (3.0-4.8) g/dL Globulin gm/dL Albumin/Globulin Ratio (1.1-1.8) Arterial Blood Potassium (3.6-5.2) mmol/L Venous Blood Potassium (3.6-5.2) mmol/L Urine Color Yellow (YELLOW) Urine Appearance Clear (CLEAR) Urine pH 5.5 (4.7-8.0) Ur Specific [place] 1.025 (1.005-1.035) Urine Protein Negative (<30 mg/dL) mg/dL Urine Glucose (UA) Negative (NEGATIVE) mg/dL Urine Ketones Negative (NEGATIVE) mg/dL Urine Blood Negative (NEGATIVE) Urine Nitrate Negative (NEGATIVE) Urine Bilirubin Negative (NEGATIVE) Urine Urobilinogen 0.2 (<1 E.U./dL) E.U./dL Ur Leukocyte Esterase Negative (NEGATIVE) Nevaeh/uL Urine Opiates Screen Positive H (NEGATIVE) Urine Methadone Screen Negative (NEGATIVE) Ur Barbiturates Screen Negative (NEGATIVE) Ur Phencyclidine Scrn Negative (NEGATIVE) Ur Amphetamines Screen Negative (NEGATIVE) U Benzodiazepines Scrn Positive H (NEGATIVE) U Oth Cocaine Metabols Negative (NEGATIVE) U Cannabinoids Screen Negative (NEGATIVE) 08/10/17 08/10/17 08/10/17 Range/Units 14:25 12:45 11:06 WBC (4.5-11.0) 10^3/ul RBC (3.5-6.1) 10^6/uL Hgb (12.0-16.0) g/dL Hct (36.0-48.0) % MCV (80.0-105.0) fl MCH (25.0-35.0) pg MCHC (31.0-37.0) g/dl RDW (11.5-14.5) % Plt Count (120.0-450.0) 10^3/uL MPV (7.0-11.0) fl Gran % (50.0-68.0) % Lymph % (Auto) (22.0-35.0) % [place] % (Auto) (1.0-6.0) % Eos % (Auto) (1.5-5.0) % Baso % (Auto) (0.0-3.0) % Gran # (1.4-6.5) Lymph # (1.2-3.4) [place] # (0.1-0.6) Eos # (0.0-0.7) Baso # (0.0-2.0) K/mm3 pCO2 48 H (35-45) mm/Hg pO2 101 H 85.0 (30-55) mm/Hg HCO3 24.2 (21-28) mmol/L ABG pH 7.31 L (7.35-7.45) ABG Total CO2 25.7 (22-28) mmol.L ABG O2 Saturation 98.0 (95-98) % ABG O2 Content (15-23) ML/dl ABG Base Excess -2.5 L (-2.0-3.0) mmol/L ABG Hemoglobin (11.7-17.4) g/dL ABG Carboxyhemoglobin (0.5-1.5) % POC ABG HHb (Measured) (0-5) % ABG Methemoglobin (0.0-3.0) % ABG O2 Capacity (16-24) mL/dl ABG Potassium 3.8 (3.6-5.2) mmol/L VBG pH 7.39 (7.32-7.43) VBG pCO2 45.0 (40-60) VBG HCO3 27.2 (21-28) mmol/l VBG Total CO2 28.6 H (22-28) mmol.L VBG O2 Sat (Calc) 98.4 H (40-65) % VBG Base Excess 1.7 (0.0-2.0) mmol/L VBG Potassium 4.2 (3.6-5.2) mmol/L Hgb O2 Saturation (95.0-98.0) % Sodium 137.0 139.0 (132-148) mmol/L Chloride 107.0 106.0 (98-107) mmol/L Glucose 200 H 206 H (65-105) mg/dl Lactate 2.2 H 2.9 H (0.7-2.1) mmol/L FiO2 21.0 40.0 % Potassium (3.6-5.0) mmol/L Carbon Dioxide (21-33) mmol/L Anion Gap (10-20) BUN (7-21) mg/dL Creatinine (0.5-1.4) mg/dL Est GFR ( Amer) Est GFR (Non-Af Amer) POC Glucose (mg/dL) 206 H (65-110) mg/dL Random Glucose (70-110) mg/dL Calcium (8.4-10.5) mg/dL Phosphorus (2.5-4.5) mg/dL Magnesium (1.7-2.2) mg/dL Total Bilirubin (0.2-1.3) mg/dL AST (14-36) U/L ALT (7-56) U/L Alkaline Phosphatase (38-126) U/L Total Protein (5.8-8.3) g/dL Albumin (3.0-4.8) g/dL Globulin gm/dL Albumin/Globulin Ratio (1.1-1.8) Arterial Blood Potassium 3.8 (3.6-5.2) mmol/L Venous Blood Potassium 4.2 (3.6-5.2) mmol/L Urine Color (YELLOW) Urine Appearance (CLEAR) Urine pH (4.7-8.0) Ur Specific [place] (1.005-1.035) Urine Protein (<30 mg/dL) mg/dL Urine Glucose (UA) (NEGATIVE) mg/dL Urine Ketones (NEGATIVE) mg/dL Urine Blood (NEGATIVE) Urine Nitrate (NEGATIVE) Urine Bilirubin (NEGATIVE) Urine Urobilinogen (<1 E.U./dL) E.U./dL Ur Leukocyte Esterase (NEGATIVE) Nevaeh/uL Urine Opiates Screen (NEGATIVE) Urine Methadone Screen (NEGATIVE) Ur Barbiturates Screen (NEGATIVE) Ur Phencyclidine Scrn (NEGATIVE) Ur Amphetamines Screen (NEGATIVE) U Benzodiazepines Scrn (NEGATIVE) U Oth Cocaine Metabols (NEGATIVE) U Cannabinoids Screen (NEGATIVE) 08/10/17 08/10/17 Range/Units 10:07 07:32 WBC (4.5-11.0) 10^3/ul RBC (3.5-6.1) 10^6/uL Hgb (12.0-16.0) g/dL Hct (36.0-48.0) % MCV (80.0-105.0) fl MCH (25.0-35.0) pg MCHC (31.0-37.0) g/dl RDW (11.5-14.5) % Plt Count (120.0-450.0) 10^3/uL MPV (7.0-11.0) fl Gran % (50.0-68.0) % Lymph % (Auto) (22.0-35.0) % [place] % (Auto) (1.0-6.0) % Eos % (Auto) (1.5-5.0) % Baso % (Auto) (0.0-3.0) % Gran # (1.4-6.5) Lymph # (1.2-3.4) [place] # (0.1-0.6) Eos # (0.0-0.7) Baso # (0.0-2.0) K/mm3 pCO2 (35-45) mm/Hg pO2 185 H (30-55) mm/Hg HCO3 (21-28) mmol/L ABG pH (7.35-7.45) ABG Total CO2 (22-28) mmol.L ABG O2 Saturation (95-98) % ABG O2 Content (15-23) ML/dl ABG Base Excess (-2.0-3.0) mmol/L ABG Hemoglobin (11.7-17.4) g/dL ABG Carboxyhemoglobin (0.5-1.5) % POC ABG HHb (Measured) (0-5) % ABG Methemoglobin (0.0-3.0) % ABG O2 Capacity (16-24) mL/dl ABG Potassium (3.6-5.2) mmol/L VBG pH 7.27 L (7.32-7.43) VBG pCO2 52.0 (40-60) VBG HCO3 23.9 (21-28) mmol/l VBG Total CO2 25.5 (22-28) mmol.L VBG O2 Sat (Calc) 98.6 H (40-65) % VBG Base Excess -3.6 L (0.0-2.0) mmol/L VBG Potassium 4.3 (3.6-5.2) mmol/L Hgb O2 Saturation (95.0-98.0) % Sodium 137.0 (132-148) mmol/L Chloride 106.0 (98-107) mmol/L Glucose 238 H (65-105) mg/dl Lactate 5.0 H* (0.7-2.1) mmol/L FiO2 21.0 % Potassium (3.6-5.0) mmol/L Carbon Dioxide (21-33) mmol/L Anion Gap (10-20) BUN (7-21) mg/dL Creatinine (0.5-1.4) mg/dL Est GFR ( Amer) Est GFR (Non-Af Amer) POC Glucose (mg/dL) 259 H (65-110) mg/dL Random Glucose (70-110) mg/dL Calcium (8.4-10.5) mg/dL Phosphorus (2.5-4.5) mg/dL Magnesium (1.7-2.2) mg/dL Total Bilirubin (0.2-1.3) mg/dL AST (14-36) U/L ALT (7-56) U/L Alkaline Phosphatase (38-126) U/L Total Protein (5.8-8.3) g/dL Albumin (3.0-4.8) g/dL Globulin gm/dL Albumin/Globulin Ratio (1.1-1.8) Arterial Blood Potassium (3.6-5.2) mmol/L Venous Blood Potassium 4.3 (3.6-5.2) mmol/L Urine Color (YELLOW) Urine Appearance (CLEAR) Urine pH (4.7-8.0) Ur Specific [place] (1.005-1.035) Urine Protein (<30 mg/dL) mg/dL Urine Glucose (UA) (NEGATIVE) mg/dL Urine Ketones (NEGATIVE) mg/dL Urine Blood (NEGATIVE) Urine Nitrate (NEGATIVE) Urine Bilirubin (NEGATIVE) Urine Urobilinogen (<1 E.U./dL) E.U./dL Ur Leukocyte Esterase (NEGATIVE) Nevae[place]/uL Urine Opiates Screen (NEGATIVE) Urine Methadone Screen (NEGATIVE) Ur Barbiturates Screen (NEGATIVE) Ur Phencyclidine Scrn (NEGATIVE) Ur Amphetamines Screen (NEGATIVE) U Benzodiazepines Scrn (NEGATIVE) U Oth Cocaine Metabols (NEGATIVE) U Cannabinoids Screen (NEGATIVE) Laboratory Results - last 24 hr 08/10/17 08/10/17 08/10/17 07:32 10:07 11:06 WBC RBC Hgb Hct MCV MCH MCHC RDW Plt Count MPV Gran % Lymph % (Auto) [place] % (Auto) Eos % (Auto) Baso % (Auto) Gran # Lymph # [place] # Eos # Baso # pCO2 pO2 185 H HCO3 ABG pH ABG Total CO2 ABG O2 Saturation ABG O2 Content ABG Base Excess ABG Hemoglobin ABG Carboxyhemoglobin POC ABG HHb (Measured) ABG Methemoglobin ABG O2 Capacity ABG Potassium VBG pH 7.27 L VBG pCO2 52.0 VBG HCO3 23.9 VBG Total CO2 25.5 VBG O2 Sat (Calc) 98.6 H VBG Base Excess -3.6 L VBG Potassium 4.3 Hgb O2 Saturation Sodium 137.0 Chloride 106.0 Glucose 238 H Lactate 5.0 H* FiO2 21.0 Potassium Carbon Dioxide Anion Gap BUN Creatinine Est GFR ( Amer) Est GFR (Non-Af Amer) POC Glucose (mg/dL) 259 H 206 H Random Glucose Calcium Phosphorus Magnesium Total Bilirubin AST ALT Alkaline Phosphatase Total Protein Albumin Globulin Albumin/Globulin Ratio Arterial Blood Potassium Venous Blood Potassium 4.3 Urine Color Urine Appearance Urine pH Ur Specific [place] Urine Protein Urine Glucose (UA) Urine Ketones Urine Blood Urine Nitrate Urine Bilirubin Urine Urobilinogen Ur Leukocyte Esterase Urine Opiates Screen Urine Methadone Screen Ur Barbiturates Screen Ur Phencyclidine Scrn Ur Amphetamines Screen U Benzodiazepines Scrn U Oth Cocaine Metabols U Cannabinoids Screen 08/10/17 08/10/17 08/10/17 12:45 14:25 14:45 WBC RBC Hgb Hct MCV MCH MCHC RDW Plt Count MPV Gran % Lymph % (Auto) [place] % (Auto) Eos % (Auto) Baso % (Auto) Gran # Lymph # [place] # Eos # Baso # pCO2 48 H pO2 85.0 101 H HCO3 24.2 ABG pH 7.31 L ABG Total CO2 25.7 ABG O2 Saturation 98.0 ABG O2 Content ABG Base Excess -2.5 L ABG Hemoglobin ABG Carboxyhemoglobin POC ABG HHb (Measured) ABG Methemoglobin ABG O2 Capacity ABG Potassium 3.8 VBG pH 7.39 VBG pCO2 45.0 VBG HCO3 27.2 VBG Total CO2 28.6 H VBG O2 Sat (Calc) 98.4 H VBG Base Excess 1.7 VBG Potassium 4.2 Hgb O2 Saturation Sodium 139.0 137.0 Chloride 106.0 107.0 Glucose 206 H 200 H Lactate 2.9 H 2.2 H FiO2 40.0 21.0 Potassium Carbon Dioxide Anion Gap BUN Creatinine Est GFR ( Amer) Est GFR (Non-Af Amer) POC Glucose (mg/dL) Random Glucose Calcium Phosphorus Magnesium Total Bilirubin AST ALT Alkaline Phosphatase Total Protein Albumin Globulin Albumin/Globulin Ratio Arterial Blood Potassium 3.8 Venous Blood Potassium 4.2 Urine Color Urine Appearance Urine pH Ur Specific [place] Urine Protein Urine Glucose (UA) Urine Ketones Urine Blood Urine Nitrate Urine Bilirubin Urine Urobilinogen Ur Leukocyte Esterase Urine Opiates Screen Positive H Urine Methadone Screen Negative Ur Barbiturates Screen Negative Ur Phencyclidine Scrn Negative Ur Amphetamines Screen Negative U Benzodiazepines Scrn Positive H U Oth Cocaine Metabols Negative U Cannabinoids Screen Negative 08/10/17 08/10/17 08/10/17 14:45 15:50 16:47 WBC RBC Hgb Hct MCV MCH MCHC RDW Plt Count MPV Gran % Lymph % (Auto) [place] % (Auto) Eos % (Auto) Baso % (Auto) Gran # Lymph # [place] # Eos # Baso # pCO2 44 pO2 75.0 L HCO3 26.0 ABG pH 7.38 ABG Total CO2 27.4 ABG O2 Saturation 96.7 ABG O2 Content 15.5 ABG Base Excess 0.6 ABG Hemoglobin 11.6 L ABG Carboxyhemoglobin 1.0 POC ABG HHb (Measured) 3.2 ABG Methemoglobin 1.5 ABG O2 Capacity 16.0 ABG Potassium VBG pH VBG pCO2 VBG HCO3 VBG Total CO2 VBG O2 Sat (Calc) VBG Base Excess VBG Potassium Hgb O2 Saturation 94.4 L Sodium Chloride Glucose Lactate FiO2 40.0 Potassium Carbon Dioxide Anion Gap BUN Creatinine Est GFR ( Amer) Est GFR (Non-Af Amer) POC Glucose (mg/dL) 201 H Random Glucose Calcium Phosphorus Magnesium Total Bilirubin AST ALT Alkaline Phosphatase Total Protein Albumin Globulin Albumin/Globulin Ratio Arterial Blood Potassium Venous Blood Potassium Urine Color Yellow Urine Appearance Clear Urine pH 5.5 Ur Specific [place] 1.025 Urine Protein Negative Urine Glucose (UA) Negative Urine Ketones Negative Urine Blood Negative Urine Nitrate Negative Urine Bilirubin Negative Urine Urobilinogen 0.2 Ur Leukocyte Esterase Negative Urine Opiates Screen Urine Methadone Screen Ur Barbiturates Screen Ur Phencyclidine Scrn Ur Amphetamines Screen U Benzodiazepines Scrn U Oth Cocaine Metabols U Cannabinoids Screen 08/10/17 08/11/17 08/11/17 21:55 05:20 05:20 WBC 16.5 H RBC 4.17 Hgb 11.4 L Hct 35.3 L MCV 84.7 MCH 27.3 MCHC 32.3 RDW 13.9 Plt Count 246 MPV 9.5 Gran % 85.9 H Lymph % (Auto) 9.4 L [place] % (Auto) 4.5 Eos % (Auto) 0.1 L Baso % (Auto) 0.1 Gran # 14.21 H Lymph # 1.6 [place] # 0.8 H Eos # 0.0 Baso # 0.01 pCO2 pO2 HCO3 ABG pH ABG Total CO2 ABG O2 Saturation ABG O2 Content ABG Base Excess ABG Hemoglobin ABG Carboxyhemoglobin POC ABG HHb (Measured) ABG Methemoglobin ABG O2 Capacity ABG Potassium VBG pH VBG pCO2 VBG HCO3 VBG Total CO2 VBG O2 Sat (Calc) VBG Base Excess VBG Potassium Hgb O2 Saturation Sodium 143 Chloride 104 Glucose Lactate FiO2 Potassium 3.9 Carbon Dioxide 25 Anion Gap 18 BUN 19 Creatinine 0.9 Est GFR ( Amer) > 60 Est GFR (Non-Af Amer) > 60 POC Glucose (mg/dL) 185 H Random Glucose 201 H Calcium 9.1 Phosphorus 4.4 Magnesium 2.0 Total Bilirubin 0.4 AST 22 ALT 35 Alkaline Phosphatase 65 Total Protein 7.1 Albumin 4.1 Globulin 3.0 Albumin/Globulin Ratio 1.4 Arterial Blood Potassium Venous Blood Potassium Urine Color Urine Appearance Urine pH Ur Specific [place] Urine Protein Urine Glucose (UA) Urine Ketones Urine Blood Urine Nitrate Urine Bilirubin Urine Urobilinogen Ur Leukocyte Esterase Urine Opiates Screen Urine Methadone Screen Ur Barbiturates Screen Ur Phencyclidine Scrn Ur Amphetamines Screen U Benzodiazepines Scrn U Oth Cocaine Metabols U Cannabinoids Screen 08/11/17 08/11/17 05:25 08:06 WBC RBC Hgb Hct MCV MCH MCHC RDW Plt Count MPV Gran % Lymph % (Auto) [place] % (Auto) Eos % (Auto) Baso % (Auto) Gran # Lymph # [place] # Eos # Baso # pCO2 45 pO2 104.0 H HCO3 27.2 ABG pH 7.39 ABG Total CO2 28.6 H ABG O2 Saturation 98.3 H ABG O2 Content 15.8 ABG Base Excess 1.8 ABG Hemoglobin 11.6 L ABG Carboxyhemoglobin 1.1 POC ABG HHb (Measured) 1.7 ABG Methemoglobin 1.0 ABG O2 Capacity 16.1 ABG Potassium VBG pH VBG pCO2 VBG HCO3 VBG Total CO2 VBG O2 Sat (Calc) VBG Base Excess VBG Potassium Hgb O2 Saturation 96.1 Sodium Chloride Glucose Lactate FiO2 40.0 Potassium Carbon Dioxide Anion Gap BUN Creatinine Est GFR ( Amer) Est GFR (Non-Af Amer) POC Glucose (mg/dL) 205 H Random Glucose Calcium Phosphorus Magnesium Total Bilirubin AST ALT Alkaline Phosphatase Total Protein Albumin Globulin Albumin/Globulin Ratio Arterial Blood Potassium Venous Blood Potassium Urine Color Urine Appearance Urine pH Ur Specific [place] Urine Protein Urine Glucose (UA) Urine Ketones Urine Blood Urine Nitrate Urine Bilirubin Urine Urobilinogen Ur Leukocyte Esterase Urine Opiates Screen Urine Methadone Screen Ur Barbiturates Screen Ur Phencyclidine Scrn Ur Amphetamines Screen U Benzodiazepines Scrn U Oth Cocaine Metabols U Cannabinoids Screen Fingerstick Blood Sugar Results: 204 Review of Systems - Review of Systems Systems not reviewed;Unavailable: Intubated Critical Care Progress Note - Ventilator Checklist Daily Sedation Vacation: Yes Daily Assessment of Readiness to Wean: Yes Daily Spontaneous Breathing Trial: Yes PUD Prophalyxis: Yes DVT Prophylaxis: Yes Oral Care with Chlorhexidine Gluconate {CHG}: Yes - Nutrition Nutrition: Nutrition Category Date Time Status NPO Diet [DIET] Diets 08/10/17 Breakfast Ordered Assessment/Plan - Assessment and Plan (Free Text) Assessment: 62 y/o F w/ acute respiratory failure Unclear medical history but likely Obstructive lung disease. Wheezing improved although not resolved. On Duonebs PRN, solumedrol and empiric abx for possible CAP. Will try SBT, sedation vacation today. PS trial and assess mental status. for extubation. dvt p ppi cc time 55 min
--- NOTE | 2017-08-11 09:42 | RAD ---
HISTORY: on mech vent COMPARISON: 08/10/2017 FINDINGS: LUNGS: No active pulmonary disease. PLEURA: No significant pleural effusion identified, no pneumothorax apparent. CARDIOVASCULAR: ET tube and NG tube unchanged. Normal heart size. No congestive change. OSSEOUS STRUCTURES: No significant abnormalities. VISUALIZED UPPER ABDOMEN: Normal. OTHER FINDINGS: None. IMPRESSION: Lines and tubes unchanged. No infiltrate.
[2017-08-11] MEDS: cefTRIAXone 1 gm 1 GM/100 ML BAG IVPB SCH (09:45)
[2017-08-11] MEDS: Azithromycin 500MG/NS 250ml 500 MG/250 ML BAG IVPB SCH (09:46)
--- NOTE | 2017-08-11 13:28 | CP.PCM.PN ---
<MARY IRWIN - Last Filed: 08/11/17 13:25> Subjective - Date & Time of Evaluation Date of Evaluation: 08/11/17 Time of Evaluation: 13:25 - Subjective Subjective: Medicine Progress Note: Pt was seen and examined at bedside. Pt is currently intubated, currently on Fentanyl and abx drip, but off sedation. Pt is awake and responds to commands appropriately. Pt denied CP, SOB, fever, chills, and abdominal pain. Objective - Vital Signs/Intake and Output Vital Signs (last 24 hours): Temp Pulse Resp BP Pulse Ox 98.1 F 104 H 21 159/98 H 98 08/11/17 12:00 08/11/17 13:00 08/11/17 13:00 08/11/17 13:00 08/11/17 13:00 Intake and Output: 08/11/17 08/11/17 06:59 18:59 Intake Total 871 Output Total 550 Balance 321 - Medications Medications: Current Medications Albuterol/Ipratropium (Duoneb 3 Mg/0.5 Mg (3 Ml) Ud) 3 ml IH Q2H PRN PRN Reason: Shortness of Breath Last Admin: 08/10/17 09:43 Dose: 3 ml Albuterol/Ipratropium (Duoneb 3 Mg/0.5 Mg (3 Ml) Ud) 3 ml IH [id number] LINDA Last Admin: 08/11/17 12:49 Dose: 3 ml Heparin Sodium (Porcine) (Heparin) 5,000 units SC Q12 LINDA PRN Reason: Protocol Last Admin: 08/11/17 09:46 Dose: 5,000 units Fentanyl Citrate (Fentanyl Citrate/Sodium Chloride 1 Mg/100 Ml) 1,000 mcg in 100 mls @ 2 mls/hr IV .Q24H PRN; Protocol; 20 MCG/HR PRN Reason: TITRATE PER MD ORDER Last Admin: 08/11/17 06:23 Dose: 150 mcg/hr, 15 mls/hr Propofol (Diprivan) 1,000 mg in 100 mls @ 3.13 mls/hr IV .Q24H PRN; Protocol; 5 MCG/KG/MIN PRN Reason: TITRATE PER MD ORDER Last Admin: 08/11/17 05:06 Dose: 30 mcg/kg/min, 18.779 mls/hr Ceftriaxone Sodium (Rocephin 1 Gram Ivpb) 1 gm in 100 mls @ 100 mls/hr IVPB DAILY LINDA PRN Reason: Protocol Last Admin: 08/11/17 09:45 Dose: 100 mls/hr Azithromycin (Zithromax 500mg In Ns) 500 mg in 250 mls @ 167 mls/hr IVPB DAILY LINDA PRN Reason: Protocol Last Admin: 08/11/17 09:46 Dose: 167 mls/hr Insulin Human Lispro (Humalog Med) 0 units SC ACHS LINDA PRN Reason: Protocol Last Admin: 08/11/17 11:59 Dose: 3 units Methylprednisolone (Solu-Medrol) 40 mg IVP Q6 [facility] Last Admin: 08/11/17 11:59 Dose: 40 mg Ondansetron HCl (Zofran Inj) 4 mg IVP Q4H PRN PRN Reason: Nausea/Vomiting Pantoprazole Sodium (Protonix Susp) 40 mg PO 0600 [facility] Last Admin: 08/11/17 05:36 Dose: 40 mg - Labs Labs: 08/11/17 05:20 08/11/17 05:20 PT 10.9 Seconds (9.9-11.8) 08/09/17 23:30 INR 1.01 (0.93-1.08) 08/09/17 23:30 APTT 24.5 Seconds (23.7-30.8) 08/09/17 23:30 - Constitutional Appears: No Acute Distress - Head Exam Head Exam: ATRAUMATIC, NORMOCEPHALIC - Eye Exam Eye Exam: EOMI, PERRL - ENT Exam Additional comments: Intubated - Neck Exam Neck Exam: Full ROM. absent: Lymphadenopathy, Tenderness, Thyromegaly - Respiratory Exam Respiratory Exam: Rhonchi, Wheezes. absent: Accessory Muscle Use, Rales, Respiratory Distress - Cardiovascular Exam Cardiovascular Exam: RRR. absent: Gallop, Rubs, Murmur - GI/Abdominal Exam GI & Abdominal Exam: Soft. absent: Distended, Guarding, Tenderness, Organomegaly, Rebound - Extremities Exam Extremities Exam: Normal Inspection - Neurological Exam Neurological Exam: Awake - Skin Skin Exam: Dry, Intact, Normal Color, Warm Assessment and Plan - Assessment and Plan (Free Text) Assessment: 62 y/o F with PMH of HTN, DM, and HLD presenting in respiratory distress. Pt was given duonebs, magnesium sulfate, and epinephrine in the ED with improvement. While admitted to ICU pt developed acute respiratory failure secondary to obstructive lung disease and is currently intubated. Plan: 1. Acute respiratory failure - Admitted to ICU - Intubated Vent settings per ICU Sedation vacation trial and PS trial per ICU Pt improving clinical, possible extubation per ICU Propofol currently off Fentanyl - Pulm consulted, recs appreciated - Cardio consulted, recs appreciated Echo to assess LV function showed LVEF 57% - C/w IV abx Ceftriaxone 1 gm IVPB daily Azithromycin 500 mg IVPB daily - Duonebs q4h scheduled and q2h prn - Solumedrol 40 mg IV q12 - ABG improved today pH 7.39, pCO2 45, pO2 104, HCO3 28.6 - Troponin negative - CXR negative currently, c/w daily CXR 2. DM - ISS - Hold home metformin - Glucose levels ACHS 3. HTN - Home medications currently held 4. HLD - Home medications currently held GI/DVT PPX - Heparin - Protonix - Zofran Pt discussed in detail with attending. Nathaniel Irwin PGY1 <Elver Asencio - Last Filed: 08/12/17 07:53> Objective - Vital Signs/Intake and Output Vital Signs (last 24 hours): Temp Pulse Resp BP Pulse Ox 98.0 F 73 15 132/82 98 08/12/17 04:00 08/12/17 06:30 08/12/17 06:30 08/12/17 06:30 08/12/17 06:30 Intake and Output: 08/12/17 08/12/17 06:59 18:59 Intake Total 87 Output Total 300 Balance -213 - Medications Medications: Current Medications Albuterol/Ipratropium (Duoneb 3 Mg/0.5 Mg (3 Ml) Ud) 3 ml IH Q2H PRN PRN Reason: Shortness of Breath Last Admin: 08/10/17 09:43 Dose: 3 ml Albuterol/Ipratropium (Duoneb 3 Mg/0.5 Mg (3 Ml) Ud) 3 ml IH [id number] LINDA Last Admin: 08/12/17 04:10 Dose: 3 ml Benzocaine/Menthol (Cepacol Sore Throat) 1 milagro MT Q2H PRN PRN Reason: Sore Throat Last Admin: 10/01/17 03:16 Dose: 1 milagro Heparin Sodium (Porcine) (Heparin) 5,000 units SC Q12 LINDA PRN Reason: Protocol Last Admin: 08/11/17 22:40 Dose: 5,000 units Fentanyl Citrate (Fentanyl Citrate/Sodium Chloride 1 Mg/100 Ml) 1,000 mcg in 100 mls @ 2 mls/hr IV .Q24H PRN; Protocol; 20 MCG/HR PRN Reason: TITRATE PER MD ORDER Last Titration: 08/11/17 11:45 Dose: 0 mcg/hr, 0 mls/hr Ceftriaxone Sodium (Rocephin 1 Gram Ivpb) 1 gm in 100 mls @ 100 mls/hr IVPB DAILY LINDA PRN Reason: Protocol Last Admin: 08/11/17 09:45 Dose: 100 mls/hr Azithromycin (Zithromax 500mg In Ns) 500 mg in 250 mls @ 167 mls/hr IVPB DAILY LINDA PRN Reason: Protocol Last Admin: 08/11/17 09:46 Dose: 167 mls/hr Insulin Human Lispro (Humalog Med) 0 units SC ACHS LINDA PRN Reason: Protocol Last Admin: 08/11/17 22:49 Dose: Not Given Methylprednisolone (Solu-Medrol) 40 mg IVP Q8H LINDA Ondansetron HCl (Zofran Inj) 4 mg IVP Q4H PRN PRN Reason: Nausea/Vomiting Pantoprazole Sodium (Protonix Ec Tab) 40 mg PO 0600 [facility] Last Admin: 08/12/17 05:57 Dose: 40 mg - Labs Labs: 08/12/17 05:30 08/12/17 05:30 PT 10.9 Seconds (9.9-11.8) 08/09/17 23:30 INR 1.01 (0.93-1.08) 08/09/17 23:30 APTT 24.5 Seconds (23.7-30.8) 08/09/17 23:30 Assessment and Plan - Assessment and Plan (Free Text) Assessment: went over w/ resident went over consult notes to try and extubate today discussed w/ nurse checking labs
--- NOTE | 2017-08-11 15:10 | PN ---
DATE: 08/11/2017 SUBJECTIVE: The patient was seen and examined in intensive care unit on a ventilator. She is currently sedated with fentanyl. Fentanyl is being weaned. PHYSICAL EXAMINATION GENERAL: She is on 40% FiO2. Her oxygen saturation is 100%. VITAL SIGNS: Temperature is 98.8, pulse is 60, pulse oximetry 100%, blood pressure 123/70. HEENT: Normocephalic and atraumatic. NECK: No JVD. CHEST: Symmetrical. CARDIOVASCULAR: S1 and S2, no S3, regular. PULMONARY: Scattered rhonchi and wheezes with moderate airway obstruction and obstruction is by no mean severe. GI: Soft, nontender. No organomegaly. : No CVA tenderness. EXTREMITIES: 1+ pedal edema. No cyanosis. SKIN: Clear with no skin rashes. NEUROLOGIC: Unable to assess due to sedation with fentanyl. LABORATORY DATA: I reviewed this morning's blood gas, her pH is 7.39, PCO2 is 45 and PO2 is 104 on 40% FiO2. Her WBC is 16.5, hemoglobin of 11.4. ASSESSMENT: 1. Respiratory failure. 2. Acute bronchitis. 3. Probable bronchial asthma. 4. Diabetes mellitus. PLAN: I have reviewed today's laboratory data as well as ventilator parameters. The patient is currently on 40% FiO2 with 100% oxygen saturation. Her inspiratory pressures decrease to around 26, which is a good sign for weaning and extubation. The fentanyl has to be weaned first. Her bronchospasm has decreased and now it is only [id number] wheezing and tightness. Her chest x-ray was done this morning, it will be reviewed as soon as available. Overall she is making good progress towards extubation. We will follow with team and hebrew teacher. I am trying to review her chest x-ray. It was done but the system is slow to respond; however, now I am getting the chest x-ray and it is completely clear. Tha Bustamante MD
[2017-08-12] MEDS: MethylPREDNISolone 40 mg Vial IVP SCH ×5 (00:15→23:15)
[2017-08-12] MEDS ORDERED: Benzocaine/Menthol (Cepacol) Lozenge MT PRN (02:55)
[2017-08-12] MEDS: Albuterol-Ipratrop 3 mg / 0.5 (3 ml) UD IH SCH ×5 (04:10→21:23)
[2017-08-12] MEDS: Pantoprazole 40 mg EC Tab PO SCH (05:57)
[2017-08-12 06:12] LABS: BASO # 0.01 K/mm3 (0.0-2.0); BASO % 0.1 % (0.0-3.0); GRAN # 14.76 (1.4-6.5); GRAN % 85.4 % (50.0-68.0); HEMATOCRIT 35.9 % (36.0-48.0); LYMPH # 1.7 (1.2-3.4); LYMPH % 9.6 % (22.0-35.0); MEAN CELL VOLUME 85.7 fl (80.0-105.0); MEAN CORPUSCULAR HEMOGLOBIN 27.4 pg (25.0-35.0); MEAN PLATELET VOLUME 9.5 fl (7.0-11.0); MONO # 0.8 (0.1-0.6); MONO % 4.9 % (1.0-6.0); RED CELL DISTRIBUTION WIDTH 14.1 % (11.5-14.5); WHITE BLOOD COUNT 17.3 10^3/ul (4.5-11.0)
[2017-08-12 06:19] LABS: ALB/GLOB RATIO 1.3 (1.1-1.8); ALKALINE PHOSPHATASE 64 U/L (38-126); ALT/SGPT 37 U/L (7-56); AST/SGOT 32 U/L (14-36); BILIRUBIN,TOTAL 0.6 mg/dL (0.2-1.3); BLOOD UREA NITROGEN 23 mg/dL (7-21); CALCIUM 9.1 mg/dL (8.4-10.5); CARBON DIOXIDE 31 mmol/L (21-33); CHLORIDE 105 mmol/L (98-107); GFR AFRICAN-AMERICAN > 60; GLUCOSE,RANDOM 173 mg/dL (70-110); MAGNESIUM 2.4 mg/dL (1.7-2.2); PHOSPHOROUS 4.3 mg/dL (2.5-4.5); POTASSIUM 3.9 mmol/L (3.6-5.0); SODIUM 144 mmol/L (132-148)
--- NOTE | 2017-08-12 08:45 | RAD ---
HISTORY: on mech vent COMPARISON: 08/11/2017 FINDINGS: LUNGS: No active pulmonary disease. PLEURA: No significant pleural effusion identified, no pneumothorax apparent. CARDIOVASCULAR: Normal. OSSEOUS STRUCTURES: No significant abnormalities. VISUALIZED UPPER ABDOMEN: Normal. OTHER FINDINGS: None. IMPRESSION: No active disease.
--- NOTE | 2017-08-12 08:56 | PN ---
PULMONARY NOTE DATE:08/12/17(610am--655am) SUBJECTIVE: The patient is now extubated. She appears comfortable at rest. She is not short of breath. OBJECTIVE: VITAL SIGNS: Temperature is 98.0, pulse 73, respirations 15, blood pressure 132/82. Oxygen saturation on nasal cannula is 98%. HEENT: Normocephalic, atraumatic. No JVD. CARDIOVASCULAR: Positive S1, S2. No S3. LUNGS: Significant decrease in the rhonchi and wheezing bilaterally. EXTREMITIES: No clubbing, cyanosis or edema. Calves are nontender to palpation. GASTROINTESTINAL: Abdomen is soft, nontender and nondistended. Bowel sounds are positive. SKIN: No acute rash. NEUROLOGIC: Exam limited at the present time. PERTINENT LABORATORY DATA: Chest x-ray was done and reviewed. The x-ray this morning shows no acute infiltrates. Repeat morning arterial blood gas has been ordered - not done yet. IMPRESSION: 1. Status post respiratory failure. 2. Acute bronchitis. 3. Acute bronchospasm. 4. Questionable history of asthma. 5. Diabetes mellitus. PLAN: The patient is now extubated. She appears comfortable this morning. She is not short of breath at rest. She states she is feeling much much better overall. I did discuss the case with the night nurse at length. The night nurse stated that the patient had a very good night. On physical exam, there is significantly less bronchospasm noted. I will continue with the current nebulizer treatments and decrease the intravenous steroids this morning. I have also reviewed the chest x-ray. There are no significant infiltrates noted. Repeat a.m. labs are pending. Repeat arterial blood gas is also pending. Clinical status of the patient is significantly improved. I will discuss the above with the entire ICU team the next few moments. I will discuss the above with the attending physician. aJmes Mayberry MD MTDMicheal
[2017-08-12] MEDS: Azithromycin 500MG/NS 250ml 500 MG/250 ML BAG IVPB SCH (10:16)
[2017-08-12] MEDS: cefTRIAXone 1 gm 1 GM/100 ML BAG IVPB SCH (10:16)
[2017-08-12] MEDS: Insulin Lispro (humaLOG) MEDIUM Coverage SC SCH ×4 (10:17→21:38)
--- NOTE | 2017-08-12 10:57 | CP.CCUPN ---
CCU Subjective - Physician Review Events Since Last Encounter (Free Text): 08/12/17 10:54 After extubation, patient did well, w/o distress. CCU Objective - Vital Signs / Intake & Output Vital Signs (Last 4 hours): Vital Signs Temp Pulse Resp BP Pulse Ox 08/12/17 09:00 100 H 19 96 08/12/17 08:50 106 H 15 97 08/12/17 08:46 112 H 24 154/117 H 95 08/12/17 08:40 107 H 20 96 08/12/17 08:30 99 H 22 136/64 96 08/12/17 08:20 123 H 27 H 96 08/12/17 08:15 96 H 18 129/70 98 08/12/17 08:10 86 17 97 08/12/17 08:00 97.9 F 89 16 132/78 100 08/12/17 07:50 71 17 98 08/12/17 07:45 83 19 134/80 99 08/12/17 07:40 78 16 98 08/12/17 07:30 75 15 138/77 100 08/12/17 07:20 74 15 98 08/12/17 07:15 80 27 H 149/81 99 08/12/17 07:10 71 15 98 08/12/17 07:00 73 14 132/70 99 Intake and Output (Last 8hrs): Intake & Output 08/11/17 08/12/17 08/12/17 22:59 06:59 14:59 Intake Total 87 Output Total 300 Balance -213 Intake: IV 87 Diprivan 72 fentanyl 15 Output: Urine 300 Urine, Voided 300 Other: # Voids Urine, Voided 1 - Physical Exam Head: Positive for: Atraumatic Extroacular Muscles: Positive for: EOMI Conjunctiva: Positive for: Normal Mouth: Positive for: Moist Mucous Membranes Pharnyx: Positive for: Normal Nose (Internal): Positive for: Normal Inspection Neck: Positive for: Normal Range of Motion Respiratory/Chest: Positive for: Clear to Auscultation, Wheezes Cardiovascular: Positive for: Regular Rate and Rhythm Abdomen: Positive for: Normal Bowel Sounds Upper Extremity: Positive for: Normal Inspection Lower Extremity: Positive for: Normal Inspection Neurological: Positive for: GCS=15, CN II-XII Intact - Medications Active Medications: Active Medications Generic Name Dose Route Start Last Admin Trade Name Freq PRN Reason Stop Dose Admin Albuterol/Ipratropium 3 ml 08/10/17 01:17 08/10/17 09:43 Duoneb 3 Mg/0.5 Mg (3 Ml) Ud IH 3 ml Q2H PRN Administration Shortness of Breath Albuterol/Ipratropium 3 ml 08/12/17 14:00 Duoneb 3 Mg/0.5 Mg (3 Ml) Ud IH [id number] LINDA Benzocaine/Menthol 1 milagro 08/12/17 02:55 08/12/17 03:16 Cepacol Sore Throat MT 1 milagro Q2H PRN Administration Sore Throat Heparin Sodium (Porcine) 5,000 units 08/10/17 10:00 08/12/17 10:17 Heparin SC 5,000 units Q12 LINDA Administration Protocol Fentanyl Citrate 1,000 mcg in 100 mls @ 2 mls/hr 08/10/17 06:30 08/11/17 11: 45 Fentanyl Citrate/Sodium Chloride 1 Mg/100 Ml IV 0 mcg/hr .Q24H PRN 0 mls/hr TITRATE PER MD ORDER Titration Protocol 20 MCG/HR Ceftriaxone Sodium 1 gm in 100 mls @ 100 mls/hr 08/10/17 10:30 08/12/17 10:16 Rocephin 1 Gram Ivpb IVPB 100 mls/hr DAILY LINDA Administration Protocol Azithromycin 500 mg in 250 mls @ 167 mls/hr 08/10/17 10:30 08/12/17 10:16 Zithromax 500mg In Ns IVPB 167 mls/hr DAILY [facility] Administration Protocol Insulin Human Lispro 0 units 08/10/17 07:30 08/12/17 10:17 Humalog Med SC 1 units ACHS LINDA Administration Protocol Methylprednisolone 40 mg 08/12/17 07:00 08/12/17 10:18 Solu-Medrol IVP 40 mg Q8H LINDA Administration Ondansetron HCl 4 mg 08/10/17 01:38 Zofran Inj IVP Q4H PRN Nausea/Vomiting Pantoprazole Sodium 40 mg 08/12/17 06:00 08/12/17 05:57 Protonix Ec Tab PO 40 mg 0600 LINDA Administration - Patient Studies Lab Studies: Microbiology Studies 08/10/17 07:45 MRSA Culture (Admit) - Final Nose MRSA NOT DETECTED Lab Studies 08/12/17 08/12/17 08/12/17 Range/Units 07:34 05:30 05:30 WBC 17.3 H (4.5-11.0) 10^3/ul RBC 4.19 (3.5-6.1) 10^6/uL Hgb 11.5 L (12.0-16.0) g/dL Hct 35.9 L (36.0-48.0) % MCV 85.7 (80.0-105.0) fl MCH 27.4 (25.0-35.0) pg MCHC 32.0 (31.0-37.0) g/dl RDW 14.1 (11.5-14.5) % Plt Count 260 (120.0-450.0) 10^3/uL MPV 9.5 (7.0-11.0) fl Gran % 85.4 H (50.0-68.0) % Lymph % (Auto) 9.6 L (22.0-35.0) % [place] % (Auto) 4.9 (1.0-6.0) % Eos % (Auto) 0.0 L (1.5-5.0) % Baso % (Auto) 0.1 (0.0-3.0) % Gran # 14.76 H (1.4-6.5) Lymph # 1.7 (1.2-3.4) [place] # 0.8 H (0.1-0.6) Eos # 0.0 (0.0-0.7) Baso # 0.01 (0.0-2.0) K/mm3 Sodium 144 (132-148) mmol/L Potassium 3.9 (3.6-5.0) mmol/L Chloride 105 (98-107) mmol/L Carbon Dioxide 31 (21-33) mmol/L Anion Gap 12 (10-20) BUN 23 H (7-21) mg/dL Creatinine 0.9 (0.5-1.4) mg/dL Est GFR ( Amer) > 60 Est GFR (Non-Af Amer) > 60 POC Glucose (mg/dL) 192 H (65-110) mg/dL Random Glucose 173 H (70-110) mg/dL Calcium 9.1 (8.4-10.5) mg/dL Phosphorus 4.3 (2.5-4.5) mg/dL Magnesium 2.4 H (1.7-2.2) mg/dL Total Bilirubin 0.6 (0.2-1.3) mg/dL AST 32 (14-36) U/L ALT 37 (7-56) U/L Alkaline Phosphatase 64 (38-126) U/L Total Protein 7.0 (5.8-8.3) g/dL Albumin 4.0 (3.0-4.8) g/dL Globulin 3.0 gm/dL Albumin/Globulin Ratio 1.3 (1.1-1.8) 08/11/17 08/11/17 08/11/17 Range/Units 22:40 15:37 11:31 WBC (4.5-11.0) 10^3/ul RBC (3.5-6.1) 10^6/uL Hgb (12.0-16.0) g/dL Hct (36.0-48.0) % MCV (80.0-105.0) fl MCH (25.0-35.0) pg MCHC (31.0-37.0) g/dl RDW (11.5-14.5) % Plt Count (120.0-450.0) 10^3/uL MPV (7.0-11.0) fl Gran % (50.0-68.0) % Lymph % (Auto) (22.0-35.0) % [place] % (Auto) (1.0-6.0) % Eos % (Auto) (1.5-5.0) % Baso % (Auto) (0.0-3.0) % Gran # (1.4-6.5) Lymph # (1.2-3.4) [place] # (0.1-0.6) Eos # (0.0-0.7) Baso # (0.0-2.0) K/mm3 Sodium (132-148) mmol/L Potassium (3.6-5.0) mmol/L Chloride (98-107) mmol/L Carbon Dioxide (21-33) mmol/L Anion Gap (10-20) BUN (7-21) mg/dL Creatinine (0.5-1.4) mg/dL Est GFR ( Amer) Est GFR (Non-Af Amer) POC Glucose (mg/dL) 188 H 171 H 216 H (65-110) mg/dL Random Glucose (70-110) mg/dL Calcium (8.4-10.5) mg/dL Phosphorus (2.5-4.5) mg/dL Magnesium (1.7-2.2) mg/dL Total Bilirubin (0.2-1.3) mg/dL AST (14-36) U/L ALT (7-56) U/L Alkaline Phosphatase (38-126) U/L Total Protein (5.8-8.3) g/dL Albumin (3.0-4.8) g/dL Globulin gm/dL Albumin/Globulin Ratio (1.1-1.8) Laboratory Results - last 24 hr 08/11/17 08/11/17 08/11/17 11:31 15:37 22:40 WBC RBC Hgb Hct MCV MCH MCHC RDW Plt Count MPV Gran % Lymph % (Auto) [place] % (Auto) Eos % (Auto) Baso % (Auto) Gran # Lymph # [place] # Eos # Baso # Sodium Potassium Chloride Carbon Dioxide Anion Gap BUN Creatinine Est GFR ( Amer) Est GFR (Non-Af Amer) POC Glucose (mg/dL) 216 H 171 H 188 H Random Glucose Calcium Phosphorus Magnesium Total Bilirubin AST ALT Alkaline Phosphatase Total Protein Albumin Globulin Albumin/Globulin Ratio 08/12/17 08/12/17 08/12/17 05:30 05:30 07:34 WBC 17.3 H RBC 4.19 Hgb 11.5 L Hct 35.9 L MCV 85.7 MCH 27.4 MCHC 32.0 RDW 14.1 Plt Count 260 MPV 9.5 Gran % 85.4 H Lymph % (Auto) 9.6 L [place] % (Auto) 4.9 Eos % (Auto) 0.0 L Baso % (Auto) 0.1 Gran # 14.76 H Lymph # 1.7 [place] # 0.8 H Eos # 0.0 Baso # 0.01 Sodium 144 Potassium 3.9 Chloride 105 Carbon Dioxide 31 Anion Gap 12 BUN 23 H Creatinine 0.9 Est GFR ( Amer) > 60 Est GFR (Non-Af Amer) > 60 POC Glucose (mg/dL) 192 H Random Glucose 173 H Calcium 9.1 Phosphorus 4.3 Magnesium 2.4 H Total Bilirubin 0.6 AST 32 ALT 37 Alkaline Phosphatase 64 Total Protein 7.0 Albumin 4.0 Globulin 3.0 Albumin/Globulin Ratio 1.3 Fingerstick Blood Sugar Results: 189 Review of Systems - Review of Systems All systems: reviewed and no additional remarkable complaints except (hoarse voice, throat pain.) Critical Care Progress Note - Ventilator Checklist Daily Assessment of Readiness to Wean: Yes Daily Spontaneous Breathing Trial: Yes PUD Prophalyxis: Yes DVT Prophylaxis: Yes - Nutrition Nutrition: Nutrition Category Date Time Status NPO Diet [DIET] Diets 08/10/17 Breakfast Ordered Assessment/Plan - Assessment and Plan (Free Text) Assessment: 62 y/o F w/ Acute respiratory failure intubated x 2 days and extubated yesterday No hx of obstructive lung disease. On further questioning, she mentions enviormental triggers such as dust, smoke and construction near and around her house that triggered coughing and bronchospasm. Unclear hollie, or allergic history. May have some element of Hypersensitivity Pneumonitis and or allergic pneumonitis/ PNA. Will continue steroids for prolonged course of at least 14 days , if not more up to 4 weeks. Will need PFT in 2 weeks and follow up. Allergy panel and IGE ordered. dvt p cc time 65 min
--- NOTE | 2017-08-12 11:11 | CP.PCM.PN ---
<MARY BRAGG - Last Filed: 08/12/17 11:03> Subjective - Date & Time of Evaluation Date of Evaluation: 08/12/17 Time of Evaluation: 11:04 - Subjective Subjective: Medicine Progress Note: Pt seen and examined at bedside. Pt denies any acute overnight events. Pt was extubated yesterday. Pt states that her breathing is much improved since admission. Pt denies CP, n/v/d, chills, fever, abdominal pain, dysuria, fatigue , or CONRAD. Objective - Vital Signs/Intake and Output Vital Signs (last 24 hours): Temp Pulse Resp BP Pulse Ox 97.9 F 100 H 19 154/117 H 96 08/12/17 08:00 08/12/17 09:00 08/12/17 09:00 08/12/17 08:46 08/12/17 09:00 Intake and Output: 08/12/17 08/12/17 06:59 18:59 Intake Total 87 Output Total 300 Balance -213 - Medications Medications: Current Medications Albuterol/Ipratropium (Duoneb 3 Mg/0.5 Mg (3 Ml) Ud) 3 ml IH Q2H PRN PRN Reason: Shortness of Breath Last Admin: 08/10/17 09:43 Dose: 3 ml Albuterol/Ipratropium (Duoneb 3 Mg/0.5 Mg (3 Ml) Ud) 3 ml IH [id number] [facility] Benzocaine/Menthol (Cepacol Sore Throat) 1 milagro MT Q2H PRN PRN Reason: Sore Throat Last Admin: 08/12/17 03:16 Dose: 1 milagro Heparin Sodium (Porcine) (Heparin) 5,000 units SC Q12 [facility]DA PRN Reason: Protocol Last Admin: 08/12/17 10:17 Dose: 5,000 units Fentanyl Citrate (Fentanyl Citrate/Sodium Chloride 1 Mg/100 Ml) 1,000 mcg in 100 mls @ 2 mls/hr IV .Q24H PRN; Protocol; 20 MCG/HR PRN Reason: TITRATE PER MD ORDER Last Titration: 08/11/17 11:45 Dose: 0 mcg/hr, 0 mls/hr Ceftriaxone Sodium (Rocephin 1 Gram Ivpb) 1 gm in 100 mls @ 100 mls/hr IVPB DAILY LINDA PRN Reason: Protocol Last Admin: 08/12/17 10:16 Dose: 100 mls/hr Azithromycin (Zithromax 500mg In Ns) 500 mg in 250 mls @ 167 mls/hr IVPB DAILY LINDA PRN Reason: Protocol Last Admin: 08/12/17 10:16 Dose: 167 mls/hr Insulin Human Lispro (Humalog Med) 0 units SC ACHS LINDA PRN Reason: Protocol Last Admin: 08/12/17 10:17 Dose: 1 units Methylprednisolone (Solu-Medrol) 40 mg IVP Q8H LINDA Last Admin: 08/12/17 10:18 Dose: 40 mg Ondansetron HCl (Zofran Inj) 4 mg IVP Q4H PRN PRN Reason: Nausea/Vomiting Pantoprazole Sodium (Protonix Ec Tab) 40 mg PO 0600 [facility] Last Admin: 08/12/17 05:57 Dose: 40 mg - Labs Labs: 08/12/17 05:30 08/12/17 05:30 PT 10.9 Seconds (9.9-11.8) 08/09/17 23:30 INR 1.01 (0.93-1.08) 08/09/17 23:30 APTT 24.5 Seconds (23.7-30.8) 08/09/17 23:30 - Constitutional Appears: No Acute Distress - Head Exam Head Exam: ATRAUMATIC, NORMOCEPHALIC - Eye Exam Eye Exam: EOMI, PERRL - ENT Exam ENT Exam: Mucous Membranes Moist - Neck Exam Neck Exam: Full ROM. absent: Lymphadenopathy, Tenderness, Thyromegaly - Respiratory Exam Respiratory Exam: Rales (b/l bases), Wheezes (b/l bases). absent: Accessory Muscle Use, Rhonchi, Respiratory Distress - Cardiovascular Exam Cardiovascular Exam: RRR. absent: Gallop, Rubs, Murmur - GI/Abdominal Exam GI & Abdominal Exam: Soft. absent: Distended, Guarding, Tenderness, Rebound - Extremities Exam Extremities Exam: Normal Inspection - Neurological Exam Neurological Exam: Alert, Awake, Oriented x3 - Psychiatric Exam Psychiatric exam: Normal Affect, Normal Mood - Skin Skin Exam: Dry, Intact, Normal Color, Warm Assessment and Plan - Assessment and Plan (Free Text) Assessment: 62 y/o F with PMH of HTN, DM, and HLD presenting in respiratory distress. Pt was given duonebs, magnesium sulfate, and epinephrine in the ED with improvement. While admitted to ICU pt developed acute respiratory failure secondary to obstructive lung disease and is currently intubated. Plan: 1. Acute respiratory failure - Admitted to ICU - Extubated yesterday Further management per ICU - Pulm consulted, recs appreciated c/w nebulizer and decrease IV steroids - Cardio consulted, recs appreciated Echo to assess LV function showed LVEF 57% - C/w IV abx Ceftriaxone 1 gm IVPB daily Azithromycin 500 mg IVPB daily - Duonebs q4h scheduled and q2h prn - Solumedrol 40 mg IV q8, decreased per pulm - Troponin negative x2 - CXR negative currently, c/w daily CXR 2. DM - ISS - Hold home metformin - Glucose levels ACHS 3. HTN - Home medications currently held 4. HLD - Home medications currently held GI/DVT PPX - Heparin - Protonix - Zofran Pt discussed in detail with attending. Nathaniel Bragg PGY1 <Elver Asencio - Last Filed: 08/13/17 07:53> Subjective - Subjective Subjective: went over w/ resident labs meds orders Objective - Vital Signs/Intake and Output Vital Signs (last 24 hours): Temp Pulse Resp BP Pulse Ox 98.6 F 88 20 165/100 H 99 08/12/17 18:00 08/12/17 18:00 08/12/17 18:00 08/12/17 18:00 08/12/17 18:00 Intake and Output: 08/13/17 08/13/17 06:59 18:59 Intake Total 420 Output Total 0 Balance 420 - Medications Medications: Current Medications Albuterol/Ipratropium (Duoneb 3 Mg/0.5 Mg (3 Ml) Ud) 3 ml IH Q2H PRN PRN Reason: Shortness of Breath Last Admin: 08/10/17 09:43 Dose: 3 ml Albuterol/Ipratropium (Duoneb 3 Mg/0.5 Mg (3 Ml) Ud) 3 ml IH [id number] LINDA Last Admin: 08/13/17 03:05 Dose: 3 ml Benzocaine/Menthol (Cepacol Sore Throat) 1 milagro MT Q2H PRN PRN Reason: Sore Throat Last Admin: 08/12/17 03:16 Dose: 1 milagro Heparin Sodium (Porcine) (Heparin) 5,000 units SC Q12 LINDA PRN Reason: Protocol Last Admin: 08/12/17 21:39 Dose: 5,000 units Fentanyl Citrate (Fentanyl Citrate/Sodium Chloride 1 Mg/100 Ml) 1,000 mcg in 100 mls @ 2 mls/hr IV .Q24H PRN; Protocol; 20 MCG/HR PRN Reason: TITRATE PER MD ORDER Last Titration: 08/11/17 11:45 Dose: 0 mcg/hr, 0 mls/hr Ceftriaxone Sodium (Rocephin 1 Gram Ivpb) 1 gm in 100 mls @ 100 mls/hr IVPB DAILY LINDA PRN Reason: Protocol Last Admin: 08/12/17 10:16 Dose: 100 mls/hr Azithromycin (Zithromax 500mg In Ns) 500 mg in 250 mls @ 167 mls/hr IVPB DAILY [facility] PRN Reason: Protocol Last Admin: 08/12/17 10:16 Dose: 167 mls/hr Insulin Human Lispro (Humalog Med) 0 units SC ACHS LINDA PRN Reason: Protocol Last Admin: 08/12/17 21:38 Dose: Not Given Methylprednisolone (Solu-Medrol) 40 mg IVP Q12 [facility] Ondansetron HCl (Zofran Inj) 4 mg IVP Q4H PRN PRN Reason: Nausea/Vomiting Pantoprazole Sodium (Protonix Ec Tab) 40 mg PO 0600 [facility] Last Admin: 08/13/17 06:03 Dose: 40 mg - Labs Labs: 08/13/17 07:33 08/12/17 05:30 PT 10.9 Seconds (9.9-11.8) 08/09/17 23:30 INR 1.01 (0.93-1.08) 08/09/17 23:30 APTT 24.5 Seconds (23.7-30.8) 08/09/17 23:30
--- NOTE | 2017-08-12 13:00 | PN ---
DATE: 08/12/2017 CARDIOLOGY FOLLOWUP SUBJECTIVE: The patient is extubated without shortness of breath. OBJECTIVE: VITAL SIGNS: On physical exam, blood pressure is 132/82, the heart rate is in the 80s. NECK: Negative JVD. LUNGS: Decreased breath sounds bilaterally with minimal wheezing. HEART: Reveals S1 and S2. EXTREMITIES: Without edema. LABORATORY: Noted. Echocardiogram reveals good LV function without pulmonary hypertension. IMPRESSION: 1. Status post respiratory failure. 2. Status post acute asthma attack. 3. Diabetes mellitus. 4. Obesity. Given these findings, there does not seem to be a cardiac component to her acute respiratory failure. We will continue her bronchodilators. Mark Serrano MD
[2017-08-13] MEDS: Albuterol-Ipratrop 3 mg / 0.5 (3 ml) UD IH SCH ×4 (03:05→22:22)
[2017-08-13] MEDS: Pantoprazole 40 mg EC Tab PO SCH (06:03)
[2017-08-13] MEDS: MethylPREDNISolone 40 mg Vial IVP SCH ×3 (06:06→22:01)
[2017-08-13 07:39] LABS: GRAN # 11.94 (1.4-6.5); GRAN % 80.7 % (50.0-68.0); HEMATOCRIT 36.1 % (36.0-48.0); LYMPH # 2.1 (1.2-3.4); LYMPH % 14.3 % (22.0-35.0); MEAN CELL VOLUME 86.2 fl (80.0-105.0); MEAN CORPUSCULAR HEMOGLOBIN 27.2 pg (25.0-35.0); MEAN CORPUSCULAR HGB CONC 31.6 g/dl (31.0-37.0); MEAN PLATELET VOLUME 9.7 fl (7.0-11.0); MONO # 0.7 (0.1-0.6); RED CELL DISTRIBUTION WIDTH 13.9 % (11.5-14.5); WHITE BLOOD COUNT 14.8 10^3/ul (4.5-11.0)
[2017-08-13 07:52] LABS: ALB/GLOB RATIO 1.3 (1.1-1.8); ALKALINE PHOSPHATASE 60 U/L (38-126); ALT/SGPT 31 U/L (7-56); AST/SGOT 24 U/L (14-36); BILIRUBIN,TOTAL 0.8 mg/dL (0.2-1.3); BLOOD UREA NITROGEN 21 mg/dL (7-21); CARBON DIOXIDE 30 mmol/L (21-33); CHLORIDE 102 mmol/L (98-107); GFR AFRICAN-AMERICAN > 60; GLUCOSE,RANDOM 179 mg/dL (70-110); MAGNESIUM 2.4 mg/dL (1.7-2.2); PHOSPHOROUS 4.4 mg/dL (2.5-4.5); POTASSIUM 4.3 mmol/L (3.6-5.0); SODIUM 141 mmol/L (132-148); TOTAL PROTEIN 6.8 g/dL (5.8-8.3)
--- NOTE | 2017-08-13 09:24 | PN ---
PULMONARY NOTE DATE: 08/13/2017 SUBJECTIVE: The patient appears comfortable this morning. She is not short of breath at rest. OBJECTIVE: VITAL SIGNS: Temperature is 98.6, pulse is 88, respirations are 18, and blood pressure is 165/100. Oxygen saturation on nasal cannula is 99%. HEENT: Normocephalic and atraumatic. NECK: No JVD. CARDIOVASCULAR: Positive S1 and S2. No S3. LUNGS: Much less rhonchi. No wheezing this morning. EXTREMITIES: No clubbing, cyanosis, or edema. Calves are nontender to palpation. GASTROINTESTINAL: Abdomen is soft, nontender, and nondistended. Bowel sounds are positive. SKIN: No acute rash. NEUROLOGIC: Limited at the present time. IMPRESSION: 1. Status post respiratory failure. 2. Acute bronchitis. 3. Acute bronchospasm. 4. Questionable history of asthma. 5. Diabetes mellitus. PLAN: The patient appears very comfortable this morning. She is not short of breath at rest. She states she is feeling much much better overall. On physical exam, her bronchospasm continues to resolve. In addition, the oxygen saturation on nasal cannula is now 99%. I will continue the current nebulizer treatments and decrease the intravenous steroids this morning. The patient remains on antibiotic therapy. There are no temperatures noted. Repeat a.m. labs are pending. Clinical status of the patient is significantly improved overall. I will discuss the above with the attending physician. James Mayberry MD MTDD
[2017-08-13] MEDS: cefTRIAXone 1 gm 1 GM/100 ML BAG IVPB SCH (09:35)
[2017-08-13] MEDS: Insulin Lispro (humaLOG) MEDIUM Coverage SC SCH ×4 (09:35→22:00)
[2017-08-13] MEDS: Azithromycin 500MG/NS 250ml 500 MG/250 ML BAG IVPB SCH (09:36)
--- NOTE | 2017-08-13 11:03 | PN ---
DATE: 08/13/2017 CARDIOLOGY FOLLOWUP NOTE SUBJECTIVE: The patient is awake, alert, sitting in bed without shortness of breath. PHYSICAL EXAMINATION: VITAL SIGNS: Blood pressure is 131/90 and heart rate is in the 60s. NECK: Negative JVD. LUNGS: Without rales. HEART: Reveals S1 and S2. EXTREMITIES: Without edema. LABORATORY DATA: Hemoglobin is 11.4. Chemistries with the glucose is 179. IMPRESSION 1. Status post respiratory failure. 2. Status post bronchospasm. 3. No evidence for cardiac contribution to her respiratory issues. 4. Diabetes mellitus. 5. Obesity. PLAN: 1. Given these findings, I have discussed with the patient about ruling out an allergic cause of her respiratory compromise. 2. In addition, we will arrange for an outpatient stress test next week given her cardiac risk factors. Mark Serrano MD
--- NOTE | 2017-08-13 11:28 | CP.PCM.PN ---
Subjective - Date & Time of Evaluation Date of Evaluation: 08/13/17 Time of Evaluation: 07:00 - Subjective Subjective: Pt was seen and examined at bedside. Pt not in any distress and denies any acute overnight events. Pt states that her breathing is much improved since admission and even improved since yesterday. Pt denies any CP, n/v/d, chills, fever, abdominal pain, dysuria, fatigue, headache, sore throat or congestion. Objective - Vital Signs/Intake and Output Vital Signs (last 24 hours): Temp Pulse Resp BP Pulse Ox 98 F 65 18 131/90 97 08/13/17 08:00 08/13/17 08:00 08/13/17 08:00 08/13/17 08:00 08/13/17 08:00 Intake and Output: 08/13/17 08/13/17 06:59 18:59 Intake Total 420 Output Total 0 Balance 420 - Medications Medications: Current Medications Albuterol/Ipratropium (Duoneb 3 Mg/0.5 Mg (3 Ml) Ud) 3 ml IH Q2H PRN PRN Reason: Shortness of Breath Last Admin: 08/10/17 09:43 Dose: 3 ml Albuterol/Ipratropium (Duoneb 3 Mg/0.5 Mg (3 Ml) Ud) 3 ml IH [id number] LINDA Last Admin: 08/13/17 07:52 Dose: 3 ml Benzocaine/Menthol (Cepacol Sore Throat) 1 milagro MT Q2H PRN PRN Reason: Sore Throat Last Admin: 08/12/17 03:16 Dose: 1 milagro Heparin Sodium (Porcine) (Heparin) 5,000 units SC Q12 [facility]DA PRN Reason: Protocol Last Admin: 08/13/17 09:32 Dose: 5,000 units Ceftriaxone Sodium (Rocephin 1 Gram Ivpb) 1 gm in 100 mls @ 100 mls/hr IVPB DAILY LINDA PRN Reason: Protocol Last Admin: 08/13/17 09:35 Dose: 100 mls/hr Azithromycin (Zithromax 500mg In Ns) 500 mg in 250 mls @ 167 mls/hr IVPB DAILY [facility]DA PRN Reason: Protocol Last Admin: 08/13/17 09:36 Dose: 167 mls/hr Insulin Human Lispro (Humalog Med) 0 units SC ACHS LINDA PRN Reason: Protocol Last Admin: 08/13/17 09:35 Dose: 1 units Methylprednisolone (Solu-Medrol) 40 mg IVP Q12 [facility] Last Admin: 08/13/17 09:36 Dose: Not Given Ondansetron HCl (Zofran Inj) 4 mg IVP Q4H PRN PRN Reason: Nausea/Vomiting Pantoprazole Sodium (Protonix Ec Tab) 40 mg PO 0600 [facility] Last Admin: 08/13/17 06:03 Dose: 40 mg - Labs Labs: 08/13/17 07:33 08/13/17 07:33 PT 10.9 Seconds (9.9-11.8) 08/09/17 23:30 INR 1.01 (0.93-1.08) 08/09/17 23:30 APTT 24.5 Seconds (23.7-30.8) 08/09/17 23:30 - Constitutional Appears: No Acute Distress - Head Exam Head Exam: ATRAUMATIC, NORMAL INSPECTION, NORMOCEPHALIC - Eye Exam Eye Exam: Normal appearance, PERRL - ENT Exam ENT Exam: Mucous Membranes Moist - Neck Exam Neck Exam: Normal Inspection. absent: Lymphadenopathy - Respiratory Exam Respiratory Exam: Rales, Wheezes, NORMAL BREATHING PATTERN Additional comments: wheezes bilaterally at the lower lung bases - Cardiovascular Exam Cardiovascular Exam: REGULAR RHYTHM, +S1, +S2. absent: Rubs, Murmur - GI/Abdominal Exam GI & Abdominal Exam: Normal Bowel Sounds. absent: Tenderness - Rectal Exam Rectal Exam: NORMAL INSPECTION - Back Exam Back Exam: absent: CVA tenderness (L), CVA tenderness (R) - Neurological Exam Neurological Exam: Alert, Awake, Oriented x3 Assessment and Plan - Assessment and Plan (Free Text) Assessment: 62 y/o F with PMH of HTN, DM, and HLD presenting in respiratory distress. Pt was given duonebs, magnesium sulfate, and epinephrine in the ED with improvement. While admitted to ICU pt developed acute respiratory failure secondary to obstructive lung disease and was intubated. Patient was extubated, currently monitoring respiratory status. Plan: 1. Acute respiratory failure - Admitted to ICU - Extubated 08/12 Further management per ICU - Pulm consulted, recs appreciated c/w nebulizer and decrease IV steroids - Cardio consulted, recs appreciated Echo to assess LV function showed LVEF 57% - C/w IV abx Ceftriaxone 1 gm IVPB daily Azithromycin 500 mg IVPB daily - Duonebs q6h scheduled and q2h prn - Solumedrol 40 mg IV q12, decreased per pulm - Troponin negative x2 - CXR negative currently, c/w daily CXR -Repeat CT Chest ordered -2D echo ordered 2. DM - ISS - Hold home metformin - Glucose levels ACHS 3. HTN - Home medications currently held 4. HLD - Home medications currently held GI/DVT PPX - Heparin - Protonix - Zofran Pt discussed in detail with attending Dr. Sims
--- NOTE | 2017-08-13 14:32 | CT ---
PROCEDURE: CT Chest without contrast HISTORY: Rest Distress COMPARISON: None. TECHNIQUE: Contiguous axial images were obtained through the chest without intravenous contrast enhancement. Sagittal and coronal reconstructions were performed. Radiation dose (DLP): 914 mGy-cm. This CT exam was performed using one or more of the following dose reduction techniques: Automated exposure control, adjustment of the mA and/or kV according to patient size, and/or use of iterative reconstruction technique. FINDINGS: LUNGS: There is a linear infiltrate or atelectasis in the right lower lobe. The lungs are otherwise clear. There is peribronchial thickening suspicious for bronchitis. MEDIASTINUM: Unremarkable thoracic aorta. No aneurysm. Normal sized heart. Main pulmonary artery unremarkable. No vascular congestion. No lymphadenopathy. PLEURA: No pleural fluid. No pneumothorax. BONES: No fracture. No destructive lesion. UPPER ABDOMEN: Grossly unremarkable. OTHER FINDINGS: None. IMPRESSION: Linear atelectasis at the right lung base. Peribronchial thickening.
[2017-08-13 14:57] LABS: BEEF (F27) IGE <0.10 kU/L (<0.10); CHICKEN MEAT (F83) IGE <0.10 kU/L (<0.10); CHOCOLATE (F93) IGE <0.10 kU/L (<0.10); D.FARINAE (D2) IGE 0.14 kU/L (<0.10); MAIZE/CORN (F8) IGE <0.10 kU/L (<0.10); MILK (F2) IGE <0.10 kU/L (<0.10); YEAST (F45) IGE <0.10 kU/L (<0.10)
[2017-08-14] MEDS: Albuterol-Ipratrop 3 mg / 0.5 (3 ml) UD IH SCH ×4 (02:50→19:45)
[2017-08-14] MEDS: Pantoprazole 40 mg EC Tab PO SCH (05:46)
[2017-08-14 06:56] LABS: GRAN # 7.16 (1.4-6.5); GRAN % 76.5 % (50.0-68.0); HEMATOCRIT 36.1 % (36.0-48.0); LYMPH # 1.6 (1.2-3.4); LYMPH % 17.5 % (22.0-35.0); MEAN CORPUSCULAR HEMOGLOBIN 27.4 pg (25.0-35.0); MEAN CORPUSCULAR HGB CONC 31.9 g/dl (31.0-37.0); MEAN PLATELET VOLUME 9.3 fl (7.0-11.0); MONO # 0.6 (0.1-0.6); RED CELL DISTRIBUTION WIDTH 13.5 % (11.5-14.5); WHITE BLOOD COUNT 9.4 10^3/ul (4.5-11.0)
[2017-08-14 08:02] LABS: ALB/GLOB RATIO 1.3 (1.1-1.8); ALKALINE PHOSPHATASE 57 U/L (38-126); ALT/SGPT 35 U/L (7-56); AST/SGOT 31 U/L (14-36); BILIRUBIN,TOTAL 0.8 mg/dL (0.2-1.3); BLOOD UREA NITROGEN 20 mg/dL (7-21); CALCIUM 8.9 mg/dL (8.4-10.5); CARBON DIOXIDE 28 mmol/L (21-33); CHLORIDE 102 mmol/L (98-107); GFR AFRICAN-AMERICAN > 60; GLUCOSE,RANDOM 196 mg/dL (70-110); MAGNESIUM 2.1 mg/dL (1.7-2.2); PHOSPHOROUS 4.8 mg/dL (2.5-4.5); POTASSIUM 4.4 mmol/L (3.6-5.0); SODIUM 139 mmol/L (132-148); TOTAL PROTEIN 6.4 g/dL (5.8-8.3)
--- NOTE | 2017-08-14 08:05 | PN ---
SUBJECTIVE: The patient appears comfortable this morning. She is not short of breath at rest. PHYSICAL EXAMINATION: VITAL SIGNS: Temperature is 98.2, pulse 66, respirations 18, and blood pressure 128/86. Oxygen saturation on nasal cannula is 99%. HEENT: Normocephalic, atraumatic. NECK: No JVD. CARDIOVASCULAR: Positive S1 and S2. No S3 gallop. LUNGS: Minimal rhonchi. Minimal wheezing. EXTREMITIES: No clubbing, cyanosis, or edema. Calves are nontender to palpation. GASTROINTESTINAL: Abdomen is soft, nontender, nondistended. Bowel sounds are positive. SKIN: No acute rash. NEUROLOGIC: Limited at the present time. PERTINENT LABORATORY DATA: CAT scan of the chest was done yesterday and reviewed. There are minimal linear markings noted at the right base most consistent with atelectasis. There are no air bronchograms noted. The is no mass, nodule, or lymphadenopathy noted. IMPRESSION: 1. Status post respiratory failure. 2. Acute bronchitis. 3. Acute bronchospasm. 4. Questionable history of asthma. 5. Diabetes mellitus. PLAN: The patient appears comfortable this morning. She is not short of breath at rest. She is still dyspneic on exertion. However, she does state to feeling much better overall. On physical exam, mild bronchospasm persists. I will continue with the current nebulizer treatments and current intravenous steroids (decreased yesterday) for now. I did note the CAT scan as above. The CAT scan is most consistent with linear atelectasis at the right base. The patient remains on antibiotic therapy. There are no temperatures noted. The leukocytosis is resolving. Clinical status of the patient is significantly improved. The patient is advised to be out of bed as much as possible. I will discuss the above with the attending physician. James Mayberry MD SOFÍA
[2017-08-14] MEDS: Insulin Lispro (humaLOG) MEDIUM Coverage SC SCH ×4 (08:36→21:33)
[2017-08-14] MEDS: cefTRIAXone 1 gm 1 GM/100 ML BAG IVPB SCH (09:48)
[2017-08-14] MEDS: MethylPREDNISolone 40 mg Vial IVP SCH ×2 (09:48→21:28)
[2017-08-14] MEDS: Azithromycin 500MG/NS 250ml 500 MG/250 ML BAG IVPB SCH (10:49)
--- NOTE | 2017-08-14 12:53 | CP.PCM.PN ---
Subjective - Date & Time of Evaluation Date of Evaluation: 08/14/17 Time of Evaluation: 06:00 - Subjective Subjective: Pt was seen and examined at bedside. Pt not in any distress and denies any acute overnight events. Pt states that her breathing is much improved since admission and even more improved since yesterday. Pt denies any CP, n/v/d, chills, fever, abdominal pain, dysuria, fatigue, headache, sore throat or congestion. Objective - Vital Signs/Intake and Output Vital Signs (last 24 hours): Temp Pulse Resp BP Pulse Ox 97.8 F 55 L 20 140/80 96 08/14/17 06:00 08/14/17 06:00 08/14/17 06:00 08/14/17 06:00 08/14/17 06:00 Intake and Output: 08/14/17 08/14/17 06:59 18:59 Intake Total 780 480 Balance 780 480 - Medications Medications: Current Medications Albuterol/Ipratropium (Duoneb 3 Mg/0.5 Mg (3 Ml) Ud) 3 ml IH Q2H PRN PRN Reason: Shortness of Breath Last Admin: 08/10/17 09:43 Dose: 3 ml Albuterol/Ipratropium (Duoneb 3 Mg/0.5 Mg (3 Ml) Ud) 3 ml IH [id number] [facility] Last Admin: 08/14/17 08:17 Dose: 3 ml Benzocaine/Menthol (Cepacol Sore Throat) 1 milagro MT Q2H PRN PRN Reason: Sore Throat Last Admin: 08/12/17 03:16 Dose: 1 milagro Heparin Sodium (Porcine) (Heparin) 5,000 units SC Q12 [facility] PRN Reason: Protocol Last Admin: 08/14/17 09:47 Dose: 5,000 units Ceftriaxone Sodium (Rocephin 1 Gram Ivpb) 1 gm in 100 mls @ 100 mls/hr IVPB DAILY [facility] PRN Reason: Protocol Last Admin: 08/14/17 09:48 Dose: 100 mls/hr Azithromycin (Zithromax 500mg In Ns) 500 mg in 250 mls @ 167 mls/hr IVPB DAILY [facility] PRN Reason: Protocol Last Admin: 08/14/17 10:49 Dose: 167 mls/hr Insulin Human Lispro (Humalog Med) 0 units SC ACHS LINDA PRN Reason: Protocol Last Admin: 08/14/17 08:36 Dose: 3 units Methylprednisolone (Solu-Medrol) 40 mg IVP Q12 [facility] Last Admin: 08/14/17 09:48 Dose: 40 mg Ondansetron HCl (Zofran Inj) 4 mg IVP Q4H PRN PRN Reason: Nausea/Vomiting Pantoprazole Sodium (Protonix Ec Tab) 40 mg PO 0600 [facility] Last Admin: 08/14/17 05:46 Dose: 40 mg - Labs Labs: 08/14/17 06:30 08/14/17 06:30 PT 10.9 Seconds (9.9-11.8) 08/09/17 23:30 INR 1.01 (0.93-1.08) 08/09/17 23:30 APTT 24.5 Seconds (23.7-30.8) 08/09/17 23:30 - Constitutional Appears: Non-toxic, No Acute Distress - Head Exam Head Exam: ATRAUMATIC, NORMAL INSPECTION, NORMOCEPHALIC - Eye Exam Eye Exam: EOMI, PERRL - ENT Exam ENT Exam: Mucous Membranes Moist - Neck Exam Neck Exam: Normal Inspection. absent: Lymphadenopathy - Respiratory Exam Respiratory Exam: Wheezes, NORMAL BREATHING PATTERN Additional comments: slight wheezing appreciated bilaterally - Cardiovascular Exam Cardiovascular Exam: REGULAR RHYTHM, +S1, +S2 - GI/Abdominal Exam GI & Abdominal Exam: Normal Bowel Sounds. absent: Tenderness - Back Exam Back Exam: NORMAL INSPECTION - Neurological Exam Neurological Exam: Alert, Awake, Oriented x3 - Psychiatric Exam Psychiatric exam: Normal Mood Assessment and Plan - Assessment and Plan (Free Text) Assessment: 62 y/o F with PMH of HTN, DM, and HLD presenting in respiratory distress. Pt was given duonebs, magnesium sulfate, and epinephrine in the ED with improvement. While admitted to ICU pt developed acute respiratory failure secondary to obstructive lung disease and was intubated. Patient was extubated, currently monitoring respiratory status. Plan: 1. Acute respiratory failure - Admitted to ICU - Extubated 08/12, transferred to remote tele - Pulm consulted, recs appreciated c/w nebulizer and IV steroids - Cardio consulted, recs appreciated Echo to assess LV function showed LVEF 57% - C/w IV abx Ceftriaxone 1 gm IVPB daily Azithromycin 500 mg IVPB daily - Duonebs q6h scheduled and q2h prn - continue Solumedrol 40 mg IV q12 - Troponin negative x2 - CXR negative currently - Repeat CT Chest shows linear atelectasis in the right lung base and peribronchial thickening suggestive of bronchitis. 2. DM - ISS - Hold home metformin - Glucose levels ACHS - continue Carb Consisten diet 3. HTN - Home medications currently held 4. HLD - Home medications currently held GI/DVT PPX - Heparin - Protonix - Zofran Patient seen and discussed in detail with attending Dr. Mccoy
--- NOTE | 2017-08-14 16:42 | PN ---
DATE: 08/14/2017 SUBJECTIVE: The patient's breathing has improved. No shortness of breath noted. OBJECTIVE: VITAL SIGNS: On physical exam, blood pressure is 128/86, the heart rate is in the 70s. NECK: Negative JVD. LUNGS: Without rales. minimal rhonchi. HEART: Reveals S1 and S2. EXTREMITIES: Without edema. LABORATORIES: Noted. IMPRESSION: 1. Status post respiratory failure. 2. Status post acute bronchospasm. 3. History of diabetes mellitus. Given these findings, the patient is on antibiotics as well as bronchodilators. The patient is scheduled for an outpatient stress test given her cardiac risk factors once her bronchospasm is improved. Mark Serrano MD
[2017-08-14 17:17] VITALS: O2SAT 98
[2017-08-15] MEDS: Albuterol-Ipratrop 3 mg / 0.5 (3 ml) UD IH SCH ×4 (01:15→20:04)
[2017-08-15] MEDS: Pantoprazole 40 mg EC Tab PO SCH (05:55)
[2017-08-15 07:11] LABS: BASO # 0.01 K/mm3 (0.0-2.0); BASO % 0.1 % (0.0-3.0); GRAN # 7.34 (1.4-6.5); GRAN % 68.3 % (50.0-68.0); HEMATOCRIT 37.2 % (36.0-48.0); LYMPH # 2.5 (1.2-3.4); LYMPH % 23.3 % (22.0-35.0); MEAN CELL VOLUME 84.7 fl (80.0-105.0); MEAN CORPUSCULAR HEMOGLOBIN 27.8 pg (25.0-35.0); MEAN CORPUSCULAR HGB CONC 32.8 g/dl (31.0-37.0); MEAN PLATELET VOLUME 9.2 fl (7.0-11.0); MONO # 0.9 (0.1-0.6); MONO % 8.3 % (1.0-6.0); RED CELL DISTRIBUTION WIDTH 13.2 % (11.5-14.5); WHITE BLOOD COUNT 10.7 10^3/ul (4.5-11.0)
[2017-08-15 07:56] LABS: ALB/GLOB RATIO 1.3 (1.1-1.8); ALKALINE PHOSPHATASE 53 U/L (38-126); ALT/SGPT 42 U/L (7-56); AST/SGOT 20 U/L (14-36); BILIRUBIN,TOTAL 0.9 mg/dL (0.2-1.3); BLOOD UREA NITROGEN 18 mg/dL (7-21); CALCIUM 8.9 mg/dL (8.4-10.5); CARBON DIOXIDE 31 mmol/L (21-33); CHLORIDE 100 mmol/L (98-107); GFR AFRICAN-AMERICAN > 60; GLUCOSE,RANDOM 157 mg/dL (70-110); PHOSPHOROUS 4.1 mg/dL (2.5-4.5); POTASSIUM 4.3 mmol/L (3.6-5.0); SODIUM 139 mmol/L (132-148); TOTAL PROTEIN 6.6 g/dL (5.8-8.3)
--- NOTE | 2017-08-15 08:36 | PN ---
PULMONARY NOTE DATE: 08/15/2017 SUBJECTIVE: The patient appears comfortable this morning. She is not short of breath at rest. PHYSICAL EXAMINATION: VITAL SIGNS (last noted in the computer): Temperature is 98.2, pulse 75, respirations 18, blood pressure 174/100. Oxygen saturation on room air is 98%. HEENT: Normocephalic, atraumatic. No JVD. CARDIOVASCULAR: Positive S1, S2. No S3. LUNGS: Less rhonchi. No wheezing this morning. EXTREMITIES: No clubbing, cyanosis or edema. Calves are nontender to palpation. GI: Abdomen is soft, nontender and nondistended. Bowel sounds are positive. SKIN: No acute rash. NEUROLOGIC: Exam limited at the present time. IMPRESSION: 1. Status post respiratory failure. 2. Acute bronchitis. 3. Acute bronchospasm. 4. Questionable history of asthma. 5. Diabetes mellitus. PLAN: The patient appears very comfortable this morning. She is not short of breath at rest. She is less dyspneic on exertion. She states she is feeling much, much better overall. On physical exam, her bronchospasm is slowly resolving. In addition, the alveolar arterial gradient has also resolved. Oxygen saturation on room air is now 98%. I will continue the current nebulizer treatments and decrease the intravenous steroids this morning. The patient remains on antibiotic therapy. There are no temperatures noted. The leukocytosis has resolved. Clinical status of the patient is significantly improved overall. The patient is advised to be out of bed most of the day. I will discuss the above with the attending physician. James Mayberry MD MTDD
[2017-08-15] MEDS: MethylPREDNISolone 40 mg Vial IVP SCH ×2 (09:25→22:16)
[2017-08-15] MEDS: Insulin Lispro (humaLOG) MEDIUM Coverage SC SCH ×4 (09:25→22:15)
[2017-08-15] MEDS: cefTRIAXone 1 gm 1 GM/100 ML BAG IVPB SCH (09:33)
[2017-08-15] MEDS: Azithromycin 500MG/NS 250ml 500 MG/250 ML BAG IVPB SCH (11:37)
--- NOTE | 2017-08-15 12:20 | CP.PCM.PN ---
Subjective - Date & Time of Evaluation Date of Evaluation: 08/15/17 Time of Evaluation: 06:00 - Subjective Subjective: Pt was seen and examined seated comfortably in the chair. Pt not in any distress and denies any acute overnight events besides increased blood pressure. She states breathing is getting better, and feels pretty good. Pt denies any CP, n/v/d, chills, fever, abdominal pain, dysuria, fatigue, headache , sore throat, congestion or any other complaints. Objective - Vital Signs/Intake and Output Vital Signs (last 24 hours): Temp Pulse Resp BP Pulse Ox 98.4 F 75 20 147/80 98 08/15/17 06:00 08/15/17 06:00 08/15/17 06:00 08/15/17 11:46 08/15/17 06:00 Intake and Output: 08/15/17 08/15/17 06:59 18:59 Intake Total 1260 Balance 1260 - Medications Medications: Current Medications Albuterol/Ipratropium (Duoneb 3 Mg/0.5 Mg (3 Ml) Ud) 3 ml IH Q2H PRN PRN Reason: Shortness of Breath Last Admin: 08/10/17 09:43 Dose: 3 ml Albuterol/Ipratropium (Duoneb 3 Mg/0.5 Mg (3 Ml) Ud) 3 ml IH [id number] LINDA Last Admin: 08/15/17 07:50 Dose: 3 ml Benzocaine/Menthol (Cepacol Sore Throat) 1 milagro MT Q2H PRN PRN Reason: Sore Throat Last Admin: 08/12/17 03:16 Dose: 1 milagro Heparin Sodium (Porcine) (Heparin) 5,000 units SC Q12 LINDA PRN Reason: Protocol Last Admin: 08/15/17 09:24 Dose: 5,000 units Ceftriaxone Sodium (Rocephin 1 Gram Ivpb) 1 gm in 100 mls @ 100 mls/hr IVPB DAILY LINDA PRN Reason: Protocol Last Admin: 08/15/17 09:33 Dose: 100 mls/hr Azithromycin (Zithromax 500mg In Ns) 500 mg in 250 mls @ 167 mls/hr IVPB DAILY LINDA PRN Reason: Protocol Last Admin: 08/15/17 11:37 Dose: 167 mls/hr Insulin Human Lispro (Humalog Med) 0 units SC ACHS [facility] PRN Reason: Protocol Last Admin: 08/15/17 09:25 Dose: 1 units Methylprednisolone (Solu-Medrol) 30 mg IVP Q12 [facility] Last Admin: 08/15/17 09:25 Dose: 30 mg Ondansetron HCl (Zofran Inj) 4 mg IVP Q4H PRN PRN Reason: Nausea/Vomiting Pantoprazole Sodium (Protonix Ec Tab) 40 mg PO 0600 [facility] Last Admin: 08/15/17 05:55 Dose: 40 mg Ramipril (Altace) 5 mg PO DAILY [facility] Last Admin: 08/15/17 11:46 Dose: 5 mg - Labs Labs: 08/15/17 07:00 08/15/17 07:00 PT 10.9 Seconds (9.9-11.8) 08/09/17 23:30 INR 1.01 (0.93-1.08) 08/09/17 23:30 APTT 24.5 Seconds (23.7-30.8) 08/09/17 23:30 - Constitutional Appears: Non-toxic, No Acute Distress - Head Exam Head Exam: ATRAUMATIC, NORMAL INSPECTION, NORMOCEPHALIC - Eye Exam Eye Exam: EOMI, Normal appearance - Neck Exam Neck Exam: absent: Lymphadenopathy, Tenderness - Respiratory Exam Respiratory Exam: Wheezes, NORMAL BREATHING PATTERN Additional comments: minimal wheezing - Cardiovascular Exam Cardiovascular Exam: REGULAR RHYTHM, +S1, +S2. absent: Murmur - GI/Abdominal Exam GI & Abdominal Exam: Soft. absent: Tenderness - Neurological Exam Neurological Exam: Alert, Awake, Oriented x3 - Psychiatric Exam Psychiatric exam: Normal Mood - Skin Skin Exam: Normal Color Assessment and Plan - Assessment and Plan (Free Text) Assessment: 62 y/o F with PMH of HTN, DM, and HLD presenting in respiratory distress. Pt was given duonebs, magnesium sulfate, and epinephrine in the ED with improvement. While admitted to ICU pt developed acute respiratory failure secondary to obstructive lung disease and was intubated. Patient was extubated, currently monitoring respiratory status. Plan: 1. Acute respiratory failure-resolved - Admitted to ICU - Extubated 08/12, transferred to remote tele - Pulm consulted, recs appreciated c/w nebulizer and IV steroids - Cardio consulted, recs appreciated Echo to assess LV function showed LVEF 57% - C/w IV abx Ceftriaxone 1 gm IVPB daily Azithromycin 500 mg IVPB daily - Duonebs q6h scheduled and q2h prn - decreased Solumedrol to 30 mg IV q12 - Troponin negative x2 - CXR negative currently - Repeat CT Chest shows linear atelectasis in the right lung base and peribronchial thickening suggestive of bronchitis. 2. DM - ISS - Hold home metformin - Glucose levels ACHS - continue Carb Consistent diet 3. HTN - started on ramipril 5mg 4. HLD - Home medications currently held GI/DVT PPX - Heparin - Protonix - Zofran Patient seen and discussed in detail with attending Dr. Sims
[2017-08-16] MEDS: Albuterol-Ipratrop 3 mg / 0.5 (3 ml) UD IH SCH ×2 (01:13→07:28)
[2017-08-16] MEDS: Pantoprazole 40 mg EC Tab PO SCH (05:57)
[2017-08-16 06:28] LABS: BASO # 0.01 K/mm3 (0.0-2.0); BASO % 0.1 % (0.0-3.0); EOS % 0.1 % (1.5-5.0); GRAN # 9.54 (1.4-6.5); GRAN % 76.6 % (50.0-68.0); LYMPH # 2.2 (1.2-3.4); LYMPH % 17.5 % (22.0-35.0); MEAN CORPUSCULAR HEMOGLOBIN 28.2 pg (25.0-35.0); MEAN CORPUSCULAR HGB CONC 33.2 g/dl (31.0-37.0); MEAN PLATELET VOLUME 9.5 fl (7.0-11.0); MONO # 0.7 (0.1-0.6); MONO % 5.7 % (1.0-6.0); RED CELL DISTRIBUTION WIDTH 13.2 % (11.5-14.5); WHITE BLOOD COUNT 12.5 10^3/ul (4.5-11.0)
[2017-08-16 06:53] LABS: ALB/GLOB RATIO 1.3 (1.1-1.8); ALKALINE PHOSPHATASE 55 U/L (38-126); ALT/SGPT 36 U/L (7-56); AST/SGOT 21 U/L (14-36); BILIRUBIN,TOTAL 0.9 mg/dL (0.2-1.3); BLOOD UREA NITROGEN 16 mg/dL (7-21); CALCIUM 9.2 mg/dL (8.4-10.5); CARBON DIOXIDE 29 mmol/L (21-33); CHLORIDE 100 mmol/L (98-107); GFR AFRICAN-AMERICAN > 60; GLUCOSE,RANDOM 243 mg/dL (70-110); PHOSPHOROUS 4.4 mg/dL (2.5-4.5); POTASSIUM 4.2 mmol/L (3.6-5.0); SODIUM 139 mmol/L (132-148); TOTAL PROTEIN 6.8 g/dL (5.8-8.3)
[2017-08-16] MEDS: Insulin Lispro (humaLOG) MEDIUM Coverage SC SCH (07:50)
--- NOTE | 2017-08-16 08:21 | PN ---
SUBJECTIVE: The patient appears very comfortable at rest. She is not short of breath. PHYSICAL EXAMINATION VITAL SIGNS: Temperature 98.8, pulse 64, respirations 18, blood pressure 145/95. Oxygen saturation on room air is 98%. HEENT: Normocephalic, atraumatic. NECK: No JVD. CARDIOVASCULAR: Positive S1 and S2. No S3. LUNGS: Clear bilaterally this morning. EXTREMITIES: No clubbing, cyanosis, or edema. Calves are nontender to palpation. GASTROINTESTINAL: Abdomen is soft, nontender, nondistended. Bowel sounds are positive. SKIN: No acute rash. NEUROLOGIC: Limited at the present time. IMPRESSION: 1. Status post respiratory failure. 2. Acute bronchitis. 3. Acute bronchospasm. 4. Questionable history of asthma. 5. Diabetes mellitus. PLAN: The patient appears very comfortable this morning. She is not short of breath at rest. She is not short of breath on exertion. She states to feeling much, much better overall. On physical exam, her lungs are now clear. Oxygen saturation on room air is now 98%. I will continue with the current nebulizer treatments and change to oral steroids at this point in time. The patient remains on antibiotic therapy. There are no temperatures noted. Clinical status of the patient is significantly improved overall. The patient is for probable discharge in the near future. If/when discharged, she knows to follow up with me in the office. I did discuss the case with Dr. Sims at length yesterday. I will discuss the above with the attending physician this morning. James Mayberry MD MTDMicheal
[2017-08-16 09:13] VITALS: BP 137/90; PULSE 87; RESP 20; TEMP 98.4
[2017-08-16] MEDS: cefTRIAXone 1 gm 1 GM/100 ML BAG IVPB SCH (09:33)
[2017-08-16] MEDS: Azithromycin 500MG/NS 250ml 500 MG/250 ML BAG IVPB SCH (09:33)
--- NOTE | 2017-08-17 13:06 | CP.PCM.DIS ---
Provider - Provider Date of Admission: 08/10/17 00:57 Attending physician: George Mccoy MD Primary care physician: Mell Khoury MD Time Spent in preparation of Discharge (in minutes): 70 Hospital Course - Lab Results Lab Results: Micro Results 08/10/17 07:45 Nose MRSA Culture (Admit) - Final MRSA NOT DETECTED Most Recent Lab Values WBC 12.5 10^3/ul (4.5-11.0) H 08/16/17 06:00 RBC 4.47 10^6/uL (3.5-6.1) 08/16/17 06:00 Hgb 12.6 g/dL (12.0-16.0) 08/16/17 06:00 Hct 38.0 % (36.0-48.0) 08/16/17 06:00 MCV 85.0 fl (80.0-105.0) 08/16/17 06:00 MCH 28.2 pg (25.0-35.0) 08/16/17 06:00 MCHC 33.2 g/dl (31.0-37.0) 08/16/17 06:00 RDW 13.2 % (11.5-14.5) 08/16/17 06:00 Plt Count 258 10^3/uL (120.0-450.0) 08/16/17 06:00 MPV 9.5 fl (7.0-11.0) 08/16/17 06:00 Gran % 76.6 % (50.0-68.0) H 08/16/17 06:00 Lymph % (Auto) 17.5 % (22.0-35.0) L 08/16/17 06:00 [place] % (Auto) 5.7 % (1.0-6.0) 08/16/17 06:00 Eos % (Auto) 0.1 % (1.5-5.0) L 08/16/17 06:00 Baso % (Auto) 0.1 % (0.0-3.0) 08/16/17 06:00 Gran # 9.54 (1.4-6.5) H 08/16/17 06:00 Lymph # 2.2 (1.2-3.4) 08/16/17 06:00 [place] # 0.7 (0.1-0.6) H 08/16/17 06:00 Eos # 0.0 (0.0-0.7) 08/16/17 06:00 Baso # 0.01 K/mm3 (0.0-2.0) 08/16/17 06:00 PT 10.9 Seconds (9.9-11.8) 08/09/17 23:30 INR 1.01 (0.93-1.08) 08/09/17 23:30 APTT 24.5 Seconds (23.7-30.8) 08/09/17 23:30 pCO2 45 mm/Hg (35-45) 08/11/17 05:25 pO2 104.0 mm/Hg (80-100) H 08/11/17 05:25 HCO3 27.2 mmol/L (21-28) 08/11/17 05:25 ABG pH 7.39 (7.35-7.45) 08/11/17 05:25 ABG Total CO2 28.6 mmol.L (22-28) H 08/11/17 05:25 ABG O2 Saturation 98.3 % (95-98) H 08/11/17 05:25 ABG O2 Content 15.8 ML/dl (15-23) 08/11/17 05:25 ABG Base Excess 1.8 mmol/L (-2.0-3.0) 08/11/17 05:25 ABG Hemoglobin 11.6 g/dL (11.7-17.4) L 08/11/17 05:25 ABG Carboxyhemoglobin 1.1 % (0.5-1.5) 08/11/17 05:25 POC ABG HHb (Measured) 1.7 % (0-5) 08/11/17 05:25 ABG Methemoglobin 1.0 % (0.0-3.0) 08/11/17 05:25 ABG O2 Capacity 16.1 mL/dl (16-24) 08/11/17 05:25 ABG Potassium 3.8 mmol/L (3.6-5.2) 08/10/17 12:45 VBG pH 7.39 (7.32-7.43) 08/10/17 14:25 VBG pCO2 45.0 (40-60) 08/10/17 14:25 VBG HCO3 27.2 mmol/l (21-28) 08/10/17 14:25 VBG Total CO2 28.6 mmol.L (22-28) H 08/10/17 14:25 VBG O2 Sat (Calc) 98.4 % (40-65) H 08/10/17 14:25 VBG Base Excess 1.7 mmol/L (0.0-2.0) 08/10/17 14:25 VBG Potassium 4.2 mmol/L (3.6-5.2) 08/10/17 14:25 Hgb O2 Saturation 96.1 % (95.0-98.0) 08/11/17 05:25 Sodium 137.0 mmol/L (132-148) 08/10/17 14:25 Chloride 107.0 mmol/L (98-107) 08/10/17 14:25 Glucose 200 mg/dl (65-105) H 08/10/17 14:25 Lactate 2.2 mmol/L (0.7-2.1) H 08/10/17 14:25 FiO2 40.0 % 08/11/17 05:25 Sodium 139 mmol/L (132-148) 08/16/17 06:00 Potassium 4.2 mmol/L (3.6-5.0) 08/16/17 06:00 Chloride 100 mmol/L (98-107) 08/16/17 06:00 Carbon Dioxide 29 mmol/L (21-33) 08/16/17 06:00 Anion Gap 14 (10-20) 08/16/17 06:00 BUN 16 mg/dL (7-21) 08/16/17 06:00 Creatinine 0.8 mg/dL (0.7-1.2) 08/16/17 06:00 Est GFR ( Amer) > 60 08/16/17 06:00 Est GFR (Non-Af Amer) > 60 08/16/17 06:00 POC Glucose (mg/dL) 211 mg/dL (65-110) H 08/16/17 07:34 Random Glucose 243 mg/dL (70-110) H 08/16/17 06:00 Calcium 9.2 mg/dL (8.4-10.5) 08/16/17 06:00 Phosphorus 4.4 mg/dL (2.5-4.5) 08/16/17 06:00 Magnesium 2.0 mg/dL (1.7-2.2) 08/16/17 06:00 Total Bilirubin 0.9 mg/dL (0.2-1.3) 08/16/17 06:00 AST 21 U/L (14-36) 08/16/17 06:00 ALT 36 U/L (7-56) 08/16/17 06:00 Alkaline Phosphatase 55 U/L (38-126) 08/16/17 06:00 Lactate Dehydrogenase 570 U/L (333-699) 08/09/17 23:30 Total Creatine Kinase 696 U/L (35-230) H 08/09/17 23:30 CK-MB (CK-2) 2.9 ng/mL (0.0-3.6) 08/09/17 23:30 CK-MB (CK-2) % Cancelled 08/09/17 23:30 Troponin I 0.02 ng/mL D 08/10/17 08:30 NT-Pro-B Natriuret Pep 129 pg/mL (0-450) 08/09/17 23:30 Total Protein 6.8 g/dL (5.8-8.3) 08/16/17 06:00 Albumin 3.9 g/dL (3.0-4.8) 08/16/17 06:00 Globulin 2.9 gm/dL 08/16/17 06:00 Albumin/Globulin Ratio 1.3 (1.1-1.8) 08/16/17 06:00 Procalcitonin 0.05 NG/ML (0.19-0.49) L 08/09/17 23:30 Beef Allergen IgE Ab <0.10 kU/L (<0.10) 08/12/17 08:20 Beef Conventional Clss 0 08/12/17 08:20 Chicken Meat IgE Ab <0.10 kU/L (<0.10) 08/12/17 08:20 Chick Meat Conven Clss 0 08/12/17 08:20 Chocolate IgG Ab <0.10 kU/L (<0.10) 08/12/17 08:20 Chocolate [place] Clss 0 08/12/17 08:20 Outing Allergen IgE Ab <0.10 kU/L (<0.10) 08/12/17 08:20 Outing [place] Class 0 08/12/17 08:20 Egg White IgE Ab <0.10 kU/L (<0.10) 08/12/17 08:20 Egg White [place] Class 0 08/12/17 08:20 Milk Allergen IgE Ab <0.10 kU/L (<0.10) 08/12/17 08:20 Milk [place] Class 0 08/12/17 08:20 Peanut Allergen IgE Ab <0.10 kU/L (<0.10) 08/12/17 08:20 Peanut [place] Class 0 08/12/17 08:20 Soybean Allergen IgE <0.10 kU/L (<0.10) 08/12/17 08:20 Soybean [place] Class 0 08/12/17 08:20 Tuna Conventional Clss 0 08/12/17 08:20 Yeast Allergen IgE Ab <0.10 kU/L (<0.10) 08/12/17 08:20 Yeast [place] Class 0 08/12/17 08:20 D. farinae IgE Class 0/1 H 08/12/17 08:20 D. farinae Allrgen IgE 0.14 kU/L (<0.10) H 08/12/17 08:20 D. pteronyssinus Class 0/1 H 08/12/17 08:20 D. pteronyssinus IgE 0.11 kU/L (<0.10) H 08/12/17 08:20 Cockroach Allergen <0.10 kU/L (<0.10) 08/12/17 08:20 Cockroach [place] Clss 0 08/12/17 08:20 [place] IgE Ab <0.10 kU/L (<0.10) 08/12/17 08:20 [place]um [place] ASM 0 08/12/17 08:20 Arterial Blood Potassium 3.8 mmol/L (3.6-5.2) 08/10/17 12:45 Venous Blood Potassium 4.2 mmol/L (3.6-5.2) 08/10/17 14:25 Urine Color Yellow (YELLOW) 08/10/17 14:45 Urine Appearance Clear (CLEAR) 08/10/17 14:45 Urine pH 5.5 (4.7-8.0) 08/10/17 14:45 Ur Specific [place] 1.025 (1.005-1.035) 08/10/17 14:45 Urine Protein Negative mg/dL (<30 mg/dL) 08/10/17 14:45 Urine Glucose (UA) Negative mg/dL (NEGATIVE) 08/10/17 14:45 Urine Ketones Negative mg/dL (NEGATIVE) 08/10/17 14:45 Urine Blood Negative (NEGATIVE) 08/10/17 14:45 Urine Nitrate Negative (NEGATIVE) 08/10/17 14:45 Urine Bilirubin Negative (NEGATIVE) 08/10/17 14:45 Urine Urobilinogen 0.2 E.U./dL (<1 E.U./dL) 08/10/17 14:45 Ur Leukocyte Esterase Negative Nevaeh/uL (NEGATIVE) 08/10/17 14:45 Urine Opiates Screen Positive (NEGATIVE) H 08/10/17 14:45 Urine Methadone Screen Negative (NEGATIVE) 08/10/17 14:45 Ur Barbiturates Screen Negative (NEGATIVE) 08/10/17 14:45 Ur Phencyclidine Scrn Negative (NEGATIVE) 08/10/17 14:45 Ur Amphetamines Screen Negative (NEGATIVE) 08/10/17 14:45 U Benzodiazepines Scrn Positive (NEGATIVE) H 08/10/17 14:45 U Oth Cocaine Metabols Negative (NEGATIVE) 08/10/17 14:45 U Cannabinoids Screen Negative (NEGATIVE) 08/10/17 14:45 - Hospital Course Hospital Course: 62 years old female with PMH of HTN, DM and HLD present to the ED with labored breathing, chest tightness and difficulty speaking. She had 1-week history of nonproductive cough and progressive shortness of breath not associated with any fever, chills or any recent illness. She went to her PMD who gave her IV steroids, antibiotics and cough syrup but her condition didn't improved. She was admitted and eventually developed acute respiratory failure and transferred to the ICU for monitoring. Urine and blood cultures were ordered. Several xrays were obtained, demonstrating some pulmonary congestion. She was given nebulizer treatments and put on BIPAP but was not tolerating well. ABG was done, and she was intubated. Pulmonary and cardiology where consulted. She was placed on the vent but still had active wheezing/ ABG were repeated every 4 hours. Her lactate level was elevated, empiric abx were administered. Her respiratory status improved and she was extubated and transferred to telemetry unit. Her Chest X-ray was repeated and did not reveal any abnormality and her Chest CT showed linear atelectasis at the right lung base and peribronchial thickening, suggestive of bronchitis. Respiratory status improved she was continued on solumedrol and receiving nebulizer treatments. Solumedrol was decreased, PT evaluation was done. Pulmonary team was following her. Her home medication ( Metformin, Ramipril, Gabapentin, and Lipitor) were continued at discharge and she was told to follow up with HER PMD, Dr. Mccoy or Dr. Mayberry. Patient understands plan and all questions and concerns were addressed. Discharge Exam - Head Exam Head Exam: ATRAUMATIC, NORMAL INSPECTION, NORMOCEPHALIC Discharge Plan - Discharge Medications Prescriptions: Amoxicillin/Clavulanate [Augmentin 875 MG-125 MG Tab] 1 tab PO BID #14 tab predniSONE [predniSONE Tab] 40 mg PO DAILY #20 tab - Follow Up Plan Condition: CRITICAL Disposition: HOME/ ROUTINE Instructions: Acute Respiratory Distress Syndrome (DC) Additional Instructions: Please follow up in one week with your Primary Medical Doctor, Dr. Sims or Dr. Mayberry. Referrals: Mell Khoury MD [Primary Care Provider] -
== END 2017-08-16 11:06 | disposition home or self-care (01) | DRG 208 ==
LOC: ED 23:14 → ERH 08-10 00:57 → CCU 08-10 02:32 → 3RSO 08-12 16:26
PROVIDERS: ADMIT Internal Medicine; ATTEND Internal Medicine
PROC: 5A1945Z Respiratory Ventilation, 24-96 Consecutive Hours (ICD-10-PCS; principal; 2017-08-10)
PROC: 0BH18EZ Insertion of Endotracheal Airway into Trachea, Via Natural or Artificial Opening Endoscopic (ICD-10-PCS; 2017-08-10)
DX: J44.0 Chronic obstructive pulmonary disease with (acute) lower respiratory infection (principal); J96.02 Acute respiratory failure with hypercapnia; E87.4 Mixed disorder of acid-base balance; Z68.41 Body mass index [BMI] 40.0-44.9, adult; J20.9 Acute bronchitis, unspecified; E11.40 Type 2 diabetes mellitus with diabetic neuropathy, unspecified; E66.9 Obesity, unspecified; E78.00 Pure hypercholesterolemia, unspecified; E78.5 Hyperlipidemia, unspecified; I10 Essential (primary) hypertension; Z82.49 Family history of ischemic heart disease and other diseases of the circulatory system; Z83.3 Family history of diabetes mellitus; R40.2412 Glasgow coma scale score 13-15, at arrival to emergency department; R00.0 Tachycardia, unspecified; Z78.1 Physical restraint status; Z87.09 Personal history of other diseases of the respiratory system

== ENCOUNTER 2018-06-24 17:04 | Inpatient (IN) | payer OTHER ==
[2018-06-24 17:07] VITALS: BMI 38.9
[2018-06-24] MEDS ORDERED: Albuterol-Ipratrop 3 mg / 0.5 (3 ml) UD ONE (17:09)
[2018-06-24] MEDS ORDERED: Magnesium Sulfate 2 gm/50 ml 2 GM/50 ML BAG IVPB ONE (17:10)
--- NOTE | 2018-06-24 17:10 | ED PDOC ---
Arrival/HPI - General Time Seen by Provider: 06/24/18 17:08 - History of Present Illness Narrative History of Present Illness (Text): 06/24/18 17:10 A 62 year old female, whose past medical history includes asthma, presents to the emergency department complaining of shortness of breath since earlier today. Patient reports she went to her primary care doctor for shortness of breath and PMD administered albuterol and solumedrol 125 mg and called EMS. Patient reports she cannot identify what triggered her asthma symptoms but reports that these symptoms are consistent with her asthma. Patient denies any fever, chills, chest pain, nausea, vomiting, back pain, neck pain, headache, dizziness, or any other complaints. Time/Duration: 4-6 hours (earlier today) Symptom Onset: Gradual Symptom Course: Unchanged Activities at Onset: Light Context: Home Past Medical History - Provider Review Nursing Documentation Reviewed: Yes - Infectious Disease Hx of Infectious Diseases: None - Cardiac Hx Hypertension: Yes - Pulmonary Hx Bronchitis: Yes - Neurological Other/Comment: diabetic neuropathy - Endocrine/Metabolic Hx Diabetes Mellitus Type 2: Yes - Musculoskeletal/Rheumatological Hx Falls: No - Psychiatric Hx Substance Use: No Family/Social History - Physician Review Nursing Documentation Reviewed: Yes Family/Social History: Unknown Family HX Smoking Status: Unknown If Ever Smoked Hx Alcohol Use: No Hx Substance Use: No Allergies/Home Meds Allergies/Adverse Reactions: Allergies No Known Allergies Allergy (Verified 08/09/17 23:16) Home Medications: Home Meds Medication Instructions Recorded Confirmed Gabapentin [Neurontin] 1 tab PO TID 08/09/17 09/09/17 MetFORMIN [glucoPHAGE] 1 tab PO BID 08/09/17 09/09/17 Promethazine HCl/Codeine 1 tsp PO HS 08/09/17 09/09/17 [Prometh-Codein 6.25-10 mg/5 ml] Ramipril [Altace] 1 tab PO DAILY 08/09/17 09/09/17 Simvastatin [Zocor] 1 tab PO DAILY 08/09/17 09/09/17 Review of Systems - Physician Review All systems were reviewed & negative as marked: Yes - Review of Systems Constitutional: absent: Fevers, Night Sweats Respiratory: SOB, Cough (non productive cough) Cardiovascular: absent: Chest Pain Gastrointestinal: absent: Nausea, Vomiting Musculoskeletal: absent: Back Pain, Neck Pain Neurological: absent: Headache, Dizziness Physical Exam Vital Signs Reviewed: Yes Vital Signs Temp Pulse Resp BP Pulse Ox 06/24/18 17:15 20 99 06/24/18 17:09 98.5 F 112 H 19 165/92 H 99 Temperature: Afebrile Blood Pressure: Hypertensive Pulse: Tachycardic Respiratory Rate: Normal Appearance: Positive for: Well-Appearing, Non-Toxic, Comfortable Pain Distress: None Mental Status: Positive for: Alert and Oriented X 3 - Systems Exam Head: Present: Atraumatic, Normocephalic Pupils: Present: PERRL Extroacular Muscles: Present: EOMI Conjunctiva: Present: Normal Mouth: Present: Moist Mucous Membranes Neck: Present: Normal Range of Motion Respiratory/Chest: Present: Wheezes, Tachypneic, Other (speaking 2 word sentences ). No: Clear to Auscultation, Good Air Exchange, Respiratory Distress , Accessory Muscle Use, Decreased Breath Sounds, Rales, Retracting, Rhonchi, Tender to Palpation Cardiovascular: Present: Tachycardic. No: Regular Rate and Rhythm, Murmurs, Normal S1, S2, Irregular Rhythm, Peripheal Pulses Present, Bradycardic, Rub, Gallop, Muffled Abdomen: No: Tenderness, Distention, Peritoneal Signs Back: Present: Normal Inspection Upper Extremity: Present: Normal Inspection. No: Cyanosis, Edema Lower Extremity: Present: Normal Inspection. No: Edema Neurological: Present: GCS=15, CN II-XII Intact, Speech Normal Skin: Present: Warm, Dry, Normal Color. No: Rashes Psychiatric: Present: Alert, Oriented x 3, Normal Insight, Normal Concentration Medical Decision Making ED Course and Treatment: 06/24/18 17:15 Impression: A 62 year old male, whose past medical history includes asthma, presents to the emergency department complaining of shortness of breath. Plan: -- Labs -- CBC -- Chest X-ray -- Duoneb -- IVPB -- BIPAP -- Peak Flow Pre/Post Tx -- Reassess and disposition Prior Visits: Notes and results from previous visits were reviewed. Progress Notes: 06/24/18 18:15 Patient given duonebs and Mg. Given solu-medrol prior to arrival. Upon reassessment, patient is experiencing persistent wheezing, peek flow 150 and recommended admission to hospital. 06/24/18 19:[address] Egan accepts 06/24/18 19:13 Cased discussed with medical sales associate who was made aware the patient is in the emergency department. - Lab Interpretations Lab Results: 06/24/18 17:20 06/24/18 17:20 Lab Results 06/24/18 17:20: Sodium 147, Potassium 3.5 L, Chloride 106, Carbon Dioxide 24, Anion Gap 20, BUN 11, Creatinine 0.8, Est GFR ( Amer) > 60, Est GFR (Non- Af Amer) > 60, Random Glucose 148 H, Calcium 9.3 06/24/18 17:20: WBC 8.4 D, RBC 4.77, Hgb 13.2, Hct 39.9, MCV 83.6 D, MCH 27.7 , MCHC 33.1, RDW 13.0, Plt Count 278, MPV 9.4, Gran % 44.4 L, Lymph % (Auto) 44.5 H, [place] % (Auto) 7.6 H, Eos % (Auto) 3.3, Baso % (Auto) 0.2, Gran # 3.71, Lymph # (Auto) 3.7 H, [place] # (Auto) 0.6, Eos # (Auto) 0.3, Baso # (Auto) 0.02 - RAD Interpretation Radiology Orders: 06/24/18 17:11 CHEST PORTABLE [RAD] Stat - Medication Orders Current Medication Orders: Discontinued Medications Albuterol/Ipratropium (Duoneb 3 Mg/0.5 Mg (3 Ml) Ud) 3 ml IH Q15M LINDA Stop: 06/24/18 17:46 Last Admin: 06/24/18 18:00 Dose: 3 ml Albuterol/Ipratropium (Duoneb 3 Mg/0.5 Mg (3 Ml) Ud) 3 ml IH STAT STA Stop: 06/24/18 18:14 Last Admin: 06/24/18 18:59 Dose: 3 ml Magnesium Sulfate (Magnesium Sulfate 2 Gm/50 Ml Water) 2 gm in 50 mls @ 50 mls/ hr IVPB ONCE ONE Stop: 06/24/18 18:09 Last Admin: 06/24/18 17:24 Dose: 50 mls/hr eMAR Start Stop Document 06/24/18 17:24 [email or web address] (Rec: 06/24/18 17:24 [email or web address] [id number]) Intravenous Solution Start Date 06/24/18 Start Time 17:24 Potassium Chloride (K-Dur 20 Meq Er Tab) 20 meq PO STAT STA Stop: 06/24/18 19:04 - Scribe Statement The provider has reviewed the documentation as recorded by the Gunneribwill [place] All medical record entries made by the Gunneribwill were at my direction and personally dictated by me. I have reviewed the chart and agree that the record accurately reflects my personal performance of the history, physical exam, medical decision making, and the department course for this patient. I have also personally directed, reviewed, and agree with the discharge instructions and disposition. Disposition/Present on Arrival - Present on Arrival Any Indicators Present on Arrival: No History of DVT/PE: No History of Uncontrolled Diabetes: No Urinary Catheter: No History Surgical Site Infection Following: None - Disposition Have Diagnosis and Disposition been Completed?: Yes Diagnosis: Asthma exacerbation Disposition: HOSPITALIZED Disposition Time: 19:10 Patient Plan: Observation Patient Problems: Current Active Problems Problem Status Onset Asthma exacerbation Acute Condition: FAIR
[2018-06-24] MEDS: Albuterol-Ipratrop 3 mg / 0.5 (3 ml) UD IH SCH ×3 (17:18→18:00)
[2018-06-24 17:40] LABS: BLOOD UREA NITROGEN 11 mg/dL (7-21); CALCIUM 9.3 mg/dL (8.4-10.5); GFR AFRICAN-AMERICAN > 60; GFR NON-AFRICAN AMERICAN > 60
[2018-06-24 17:47] LABS: BASO # 0.02 K/mm3 (0.0-2.0); BASO % 0.2 % (0.0-3.0); EOS # 0.3 (0.0-0.7); EOS % 3.3 % (1.5-5.0); GRAN # 3.71 (1.4-6.5); GRAN % 44.4 % (50.0-68.0); HEMOGLOBIN 13.2 g/dL (12.0-16.0); LYMPH # 3.7 (1.2-3.4); LYMPH % 44.5 % (22.0-35.0); MEAN CELL VOLUME 83.6 fl (80.0-105.0); MEAN CORPUSCULAR HEMOGLOBIN 27.7 pg (25.0-35.0); MEAN CORPUSCULAR HGB CONC 33.1 g/dl (31.0-37.0); MEAN PLATELET VOLUME 9.4 fl (7.0-11.0); MONO # 0.6 (0.1-0.6); MONO % 7.6 % (1.0-6.0); RBC 4.77 10^6/uL (3.5-6.1); WHITE BLOOD COUNT 8.4 10^3/ul (4.5-11.0)
[2018-06-24] MEDS ORDERED: Albuterol-Ipratrop 3 mg / 0.5 (3 ml) UD IH STA (18:13)
[2018-06-24] MEDS ORDERED: Potassium Chloride 20 mEq ER Tab PO STA (19:03)
[2018-06-24] MEDS ORDERED: guaiFENesin DM 100 mg-10 mg/5 ml UD PO PRN (20:17)
[2018-06-24] MEDS ORDERED: Levalbuterol 0.63 MG/3 ML Inhal Soln UD IH PRN (20:30)
--- NOTE | 2018-06-24 20:34 | CP.PCM.HP ---
<GertrudisFausto kim - Last Filed: 06/24/18 20:34> History of Present Illness - History of Present Illness History of Present Illness: Fuasto Caba PGY2 H&P Note for Dr. Egan cc: sob x3 days Ms. Dickerson is a 62 year old female with a past medical history of DM2 (not on insulin), asthma for which she was intubated 07/2017, and HTN who presents to [facility] with complaints of shortness of breath x3 days, worse with exertion, and a cough. Patient reports that these symptoms are consistent with her asthma, however, she only has an albuterol inhaler at home and it has not been controlling her symptoms. She also complains of chest heaviness. She went to her PMD who gave her a breathing treatment and solu- medrol and sent the patient to the ED. When seen in ED, the patient states that her symptoms have all improved. Patient denies any fever, chills, chest pain, nausea, vomiting, back pain, neck pain, headache, dizziness, or any other complaints. 12-pt ROS was reviewed and is otherwise unremarkable. In ED, patient was given solu-medrol and duoneb breathing treatment. Her breathing improved. CXR done and showed no active disease. EKG showed sinus tachycardia. PMH: as above PSH: None Meds: Metformin, ramapril, gabapentin, albuterol Allergies: NKDA Fhx: Mother diagnosed with bronchogenic asthma in her 7th decade Shx: denies tobacco, alcohol, illicit drug consumption Present on Admission - Present on Admission Any Indicators Present on Admission: No Review of Systems - Review of Systems All systems: reviewed and no additional remarkable complaints except (as per HPI ) Past Patient History - Infectious Disease Hx of Infectious Diseases: None - Past Medical History & Family History Past Medical History?: Yes Past Family History: Reviewed and not pertinent - Past Social History Smoking Status: Unknown If Ever Smoked Alcohol: None Drugs: Denies - CARDIAC Hx Hypercholesterolemia: Yes Hx Hypertension: Yes - PULMONARY Hx Asthma: Yes - NEUROLOGICAL Hx Neurological Disorder: No Other/Comment: diabetic neuropathy - HEENT Hx HEENT Problems: No - RENAL Hx Chronic Kidney Disease: No - ENDOCRINE/METABOLIC Hx Diabetes Mellitus Type 2: Yes - HEMATOLOGICAL/ONCOLOGICAL Hx Blood Disorders: No - INTEGUMENTARY Hx Dermatological Problems: No - MUSCULOSKELETAL/RHEUMATOLOGICAL Hx Falls: No - GASTROINTESTINAL Hx Gastrointestinal Disorders: No - GENITOURINARY/GYNECOLOGICAL Hx Genitourinary Disorders: No - PSYCHIATRIC Hx Substance Use: No - SURGICAL HISTORY Hx Surgeries: No Meds Allergies/Adverse Reactions: Allergies Allergy/AdvReac Type Severity Reaction Status Date / Time No Known Allergies Allergy Verified 08/09/17 23:16 Physical Exam - Constitutional Appears: Well, Non-toxic, No Acute Distress - Head Exam Head Exam: ATRAUMATIC, NORMAL INSPECTION - Eye Exam Eye Exam: EOMI, Normal appearance, PERRL - ENT Exam ENT Exam: Mucous Membranes Moist - Neck Exam Neck exam: Positive for: Normal Inspection - Respiratory Exam Respiratory Exam: Wheezes, NORMAL BREATHING PATTERN. absent: Respiratory Distress - Cardiovascular Exam Cardiovascular Exam: Tachycardia, +S1, +S2 - GI/Abdominal Exam GI & Abdominal Exam: Soft. absent: Distended, Tenderness - Extremities Exam Extremities exam: Positive for: full ROM, normal inspection. Negative for: calf tenderness, pedal edema - Back Exam Back exam: NORMAL INSPECTION - Neurological Exam Neurological exam: Alert, CN II-XII Intact, Oriented x3 - Psychiatric Exam Psychiatric exam: Normal Mood - Skin Skin Exam: Normal Color, Warm Results - Vital Signs Recent Vital Signs: Last Vital Signs Temp 98.5 F 06/24/18 17:09 Pulse 108 H 06/24/18 19:41 Resp 17 06/24/18 19:41 BP 165/92 H 06/24/18 17:09 Pulse Ox 96 06/24/18 19:41 - Labs Result Diagrams: 06/24/18 17:20 06/24/18 17:20 Assessment & Plan - Assessment and Plan (Free Text) Assessment: 62 year old female with a past medical history of DM2 (not on insulin), asthma for which she was intubated 07/2017, and HTN who presents to [facility] with complaints of shortness of breath x3 days, worse with exertion, wheezing and a cough. Responding to breathing treatments, however, continues to wheeze. Plan: 1. COPD exacerbation - will be monitored on telemetry unit - ABG stat on RA - start Xopenex and mucomyst q6 - solu-medrol 125mg x1 STAT, and followed by 40mg q6 - start rocephin and doxy - blood and sputum cxs ordered - AM CXR PA/lateral - Echo ordered - Robitussin PRN - NS @ 60 2. Hx DM2 - ISS - Accuchecks ACHS - carb consistent diet - A1c ordered 3. Hx HTN - restart rampiril - monitor VS - lipid panel ordered 4. PPX - ptx - lovenox 40mg SC Case was reviewed and discussed with attending, Dr. Jignesh Caba PGY2 <Tyrell Egan U - Last Filed: 06/27/18 17:24> Results - Vital Signs Recent Vital Signs: Last Vital Signs Temp 98.1 F 06/27/18 07:41 Pulse 52 L 06/27/18 07:41 Resp 20 06/27/18 07:41 BP 127/61 06/27/18 09:27 Pulse Ox 96 06/27/18 07:41 - Labs Result Diagrams: 06/25/18 03:20 06/27/18 05:30 Labs: Laboratory Results - last 24 hr 06/26/18 06/26/18 06/27/18 17:48 21:53 05:30 Sodium 140 Potassium 4.7 Chloride 106 Carbon Dioxide 23 Anion Gap 16 BUN 17 Creatinine 0.8 Est GFR ( Amer) > 60 Est GFR (Non-Af Amer) > 60 POC Glucose (mg/dL) 203 H 225 H Random Glucose 286 H Calcium 9.0 Phosphorus 4.2 Magnesium 1.9 Total Bilirubin 0.4 Direct Bilirubin 0.1 AST 27 ALT 36 Alkaline Phosphatase 58 Total Protein 6.4 Albumin 3.7 Globulin 2.7 Albumin/Globulin Ratio 1.4 06/27/18 06/27/18 07:09 11:07 Sodium Potassium Chloride Carbon Dioxide Anion Gap BUN Creatinine Est GFR ( Amer) Est GFR (Non-Af Amer) POC Glucose (mg/dL) 244 H 264 H Random Glucose Calcium Phosphorus Magnesium Total Bilirubin Direct Bilirubin AST ALT Alkaline Phosphatase Total Protein Albumin Globulin Albumin/Globulin Ratio Attending/Attestation - Attestation I have personally seen and examined this patient.: Yes I have fully participated in the care of the patient.: Yes I have reviewed all pertinent clinical information: Yes Notes (Text): Please see/read my dictated notes.
[2018-06-24 20:56] LABS: ARTERIAL BLOOD GAS HCO3 19.3 mmol/L (21-28); ARTERIAL BLOOD GAS HEMOGLOBIN 12.2 g/dL (11.7-17.4); ARTERIAL BLOOD GAS O2 CAPACITY 16.9 mL/dl (16-24); ARTERIAL BLOOD GAS O2 CONTENT 16.4 ML/dl (15-23); ARTERIAL BLOOD GAS O2 SAT 96.8 % (95-98); ARTERIAL BLOOD GAS PCO2 35 mm/Hg (35-45); ARTERIAL BLOOD GAS PH 7.35 (7.35-7.45); ARTERIAL BLOOD GAS TCO2 20.4 mmol.L (22-28)
[2018-06-24 21:05] LABS: HDL CHOLESTEROL 37 mg/dL (29-60)
[2018-06-24 21:16] LABS: LDL CHOLESTEROL 104 mg/dL (0-129)
[2018-06-24 21:17] LABS: TROPONIN I < 0.01 ng/mL
[2018-06-24] MEDS: Sodium Chloride 0.9% 1,000 ML IV SCH (21:29)
[2018-06-24] MEDS: Insulin Lispro (humaLOG) MEDIUM Coverage SC SCH (22:28)
[2018-06-24] MEDS: Acetylcysteine 20% Inhal Soln (4ml) IH SCH ×2 (23:51→23:57)
[2018-06-24] MEDS: MethylPREDNISolone 40 mg Vial IVP SCH (23:56)
[2018-06-25] MEDS: Acetylcysteine 20% Inhal Soln (4ml) IH SCH ×4 (03:02→19:50)
[2018-06-25 03:46] LABS: HEMOGLOBIN 12.7 g/dL (12.0-16.0); MEAN CELL VOLUME 84.3 fl (80.0-105.0); MEAN CORPUSCULAR HEMOGLOBIN 27.7 pg (25.0-35.0); MEAN CORPUSCULAR HGB CONC 32.9 g/dl (31.0-37.0); MEAN PLATELET VOLUME 9.3 fl (7.0-11.0); RBC 4.58 10^6/uL (3.5-6.1); RED CELL DISTRIBUTION WIDTH 13.3 % (11.5-14.5); WHITE BLOOD COUNT 8.8 10^3/ul (4.5-11.0)
[2018-06-25 04:12] LABS: TROPONIN I < 0.01 ng/mL
[2018-06-25 04:25] LABS: ALB/GLOB RATIO 1.4 (1.1-1.8); ALBUMIN 4.3 g/dL (3.0-4.8); ALT/SGPT 34 U/L (7-56); AST/SGOT 28 U/L (14-36); BLOOD UREA NITROGEN 11 mg/dL (7-21); CALCIUM 9.4 mg/dL (8.4-10.5); GFR AFRICAN-AMERICAN > 60; GFR NON-AFRICAN AMERICAN > 60
[2018-06-25] MEDS: MethylPREDNISolone 40 mg Vial IVP SCH ×4 (05:25→23:22)
[2018-06-25] MEDS: Pantoprazole 40 mg EC Tab PO SCH (05:25)
[2018-06-25] MEDS ORDERED: Levalbuterol 1.25 MG/3 ML Inhal Soln UD IH PRN (06:14)
[2018-06-25] MEDS: Budesonide 0.5 mg/2 ml Inhal Susp UD IH SCH ×2 (08:53→19:50)
[2018-06-25] MEDS: Arformoterol 15 mcg/2 ml Inh Sol IH SCH ×2 (08:54→19:50)
[2018-06-25] MEDS: Levalbuterol 0.63 MG/3 ML Inhal Soln UD IH SCH ×3 (08:56→19:50)
[2018-06-25] MEDS: Insulin Lispro (humaLOG) MEDIUM Coverage SC SCH ×4 (08:59→21:29)
[2018-06-25] MEDS ORDERED: Sod Polystyrene Sulf 15 gm/60 ml Susp PO ONE (08:59)
--- NOTE | 2018-06-25 09:03 | RAD ---
Date of service: 06/25/2018 HISTORY: SOB, cough COMPARISON: Basilar TECHNIQUE: Chest PA and lateral FINDINGS: LUNGS: No active pulmonary disease. PLEURA: No significant pleural effusion identified. No pneumothorax apparent. CARDIOVASCULAR: Normal. OSSEOUS STRUCTURES: No significant abnormalities. VISUALIZED UPPER ABDOMEN: Normal. OTHER FINDINGS: None. IMPRESSION: No active disease.
--- NOTE | 2018-06-25 09:13 | CARD ---
APPROVED REPORT Date of service: 06/24/2018 EKG Measurement Heart [id number] <Conclusion> Sinus tachycardia Cannot rule out Anterior infarct, age undetermined Abnormal ECG
[2018-06-25 09:20] LABS: TROPONIN I < 0.01 ng/mL
--- NOTE | 2018-06-25 09:36 | RAD ---
Date of service: 06/24/2018 HISTORY: asthma COMPARISON: 09/09/2017 FINDINGS: LUNGS: No active pulmonary disease. PLEURA: No significant pleural effusion identified, no pneumothorax apparent. CARDIOVASCULAR: Normal. OSSEOUS STRUCTURES: No significant abnormalities. VISUALIZED UPPER ABDOMEN: Normal. OTHER FINDINGS: None. IMPRESSION: No active disease.
[2018-06-25] MEDS ORDERED: Non Formulary Medication (Simvastatin [Zocor] 1 TAB) PO SCH (10:00)
[2018-06-25] MEDS: Enoxaparin 40 mg Syringe SC SCH (10:12)
[2018-06-25] MEDS: POLYETHYLENE GLYCOL 3350 17 GM/Dose PACKET PO SCH ×3 (10:12→17:24)
[2018-06-25] MEDS: Sodium Chloride 0.9% 1,000 ML IV SCH ×2 (13:10→18:20)
[2018-06-25] MEDS: cefTRIAXone 1 gm 1 GM/100 ML BAG IVPB SCH (13:15)
--- NOTE | 2018-06-25 14:33 | HP ---
Copied To: Tyrell Egan MD Attending MD: Tyrell Egan MD ADDENDUM This is an addendum to the history and physical examination done by the emergency medical tech. Please refer to the detailed history and physical examination done by the emergency medical tech in the ER physician notes from 06/24. The patient was seen, examined. Vital signs, diagnostic detail was reviewed. The patient was examined. The patient is a 62-year-old obese female presented to the emergency room with shortness of breath. According to the ER physician and the emergency medical tech, the patient came in with complaining of shortness of breath, was seen by the patient's physician. The patient was given albuterol and steroids in the office, but the patient did not respond and came to the emergency room for evaluation. The patient was treated in the emergency room with multiple DuoNeb nebulizers, Solu-Medrol 125, but the patient's symptoms did not improve and the peak flow did not improve and the patient was seen by Dr. High and the patient was advised to be admitted. IMPRESSION: 1. Acute exacerbation of bronchial asthma with bronchospasm and wheezing. 2. Questionable asthmatic bronchitis. 3. Transient tachycardia. 4. Hypertension. 5. Morbid obesity. 6. Hypoxemia. 7. Hypokalemia. 8. Type 2 ohc-ukhxcyh-hcomohluc diabetes mellitus with hyperglycemia. 9. Hyperlipidemia. 10. Diabetic neuropathy. 11. History of ventilator-dependent respiratory failure in 2017. 12. History of right lower lobe atelectasis. 13. History of asthma versus chronic obstructive pulmonary disease, history of ventilator-dependent respiratory failure. 14. History of obesity, history of myomectomy, bunionectomy, and tonsillectomy. PLAN: At this time, the patient is admitted to telemetry. The patient has been ordered serial labs. Blood, sputum cultures ordered. Current medications, Mucomyst nebulizer 20% 4 mL every 6 hours to be mixed with Xopenex nebulizer every 6 hours. The patient is on Altace 5 mg daily, Brovana 15 mcg every 12 hours, Colace 100 mg three times a day, doxycycline 100 mg IV every 12 hours, Humalog medium dose sliding scale coverage before meals and at bedtime. The patient is on Lipitor 20 mg daily, Lovenox 40 mg subcu daily for DVT prophylaxis. The patient received magnesium sulfate 2 g in the emergency room. The patient is on MiraLax 17 g twice a day, Neurontin 100 three times a day, Protonix 40 mg daily for GI prophylaxis, Pulmicort nebulizer 0.5 mg every 12 hours, Rocephin 1 g IV daily. The patient is on IV fluid 0.9 normal saline at 60 mL an hour. The patient is on Solu-Medrol 40 IV every 6 hours, Tessalon Perles 200 three times a day, Tylenol p.r.n. p.o. and suppository. The patient is on Xopenex nebulizer 1.25 mg every 2 hours p.r.n. and 0.63 mg every 6 hours, Zofran 4 IV every 4 hours. The patient was initially tried in the emergency room with BiPAP for the respiratory compromise but the patient improved well. The patient is on chest PT, incentive spirometry, oxygen 2 liters continuous. Echo with Doppler ordered. Consistent carbohydrate diet ordered. Head of the bed elevated ordered 30 degrees. Out of bed, DANNY stockings, SCDs ordered. At present, the patient is resumed on statins. The patient is resumed antihypertensive. The patient's oral hypoglycemic at this time is held. The patient is put on sliding scale coverage. The patient's hemoglobin A1c results are pending. At present, the patient's further management will be dependent upon the patient's clinical condition, hemodynamic status and as per the patient's response to therapeutic intervention, as per the patient's diagnostic test results and as per recommendation based on the patient's clinical condition and hemodynamic status. All of the above were discussed and explained to the patient at length and all questions concerned answered. Please refer to the detailed history and physical examination by the emergency medical tech. Dictated and electronically signed, not read. Tyrell Egan MD
--- NOTE | 2018-06-26 00:27 | PN ---
Copied To: Tyrell Egan MD Attending MD: Tyrell Egan MD DATE: 06/25/2018 LOCATION: The patient is seen today in room 261, bed 1. SUBJECTIVE: The patient is sitting up in the bed. The patient states that the breathing has improved since admission since yesterday. Overnight nurse's notes were reviewed. The patient overnight was given scheduled medication. The patient received Tylenol for headache. The patient at present does not complain of any wheezing and dyspnea. The patient is sitting in the bed. REVIEW OF SYSTEMS: Thirteen-system review was done, pertinent positive and negative dictated above. PHYSICAL EXAMINATION: VITAL SIGNS: T-max 98.3. Telemetry shows normal sinus rhythm, heart rate 90, 79, 83, 106, 86; respiration 20; blood pressure 146/93, 116/65; O2 sat is 96% to 98%. HEENT: Head normocephalic, atraumatic. Nada conjunctivae. Anicteric sclerae. No oropharyngeal lesion. No neck rigidity. CHEST: Kyphosis. LUNGS: Positive rhonchi, positive wheezing, decreased since admission. CARDIOVASCULAR: S1, S2, regular rhythm. Questionable soft systolic murmur at left sternal border, right second intercostal space and left second intercostal space. ABDOMEN: Obese, protuberant. Positive bowel sound. GENITALIA: Female. RECTAL: Deferred. MUSCULOSKELETAL: Body mass index of 43. NEUROLOGIC: Cranial nerves II-XII limited. Motor strength is 5/5. Gait examination is not tested. PSYCHIATRIC: Negative for anxiety, depression. Negative for suicidal or homicidal ideation. Negative for auditory or visual hallucination. DIAGNOSTICS: On 06/25, WBC 8.8, hemoglobin/hematocrit 12.7 and 38.6, platelet 247. Sodium 142, potassium 4.1, chloride 107, CO2 19, anion gap 22, BUN 11, creatinine 0.7, GFR greater than 60, glucose 240, hemoglobin A1c 7.4, calcium 9.4, phosphorus 2.5, magnesium 1.7. LFTs are normal. Troponin all three sets are negative. Microbiology, blood cultures no growth. The patient's repeat chest x-ray was done, which was no active disease. The patient's echocardiogram results are pending. Preliminary echocardiogram, right ventricular systolic pressure is 40 mmHg, left ventricular ejection fraction was noted to be around 70%, as mentioned official report is pending. IMPRESSION: 1. Acute exacerbation of bronchial asthma with wheezing and shortness of breath and cough with bronchospasm. 2. Questionable asthmatic bronchitis. 3. Tachycardia. 4. Hypertension. 5. Morbid obesity. 6. Hypoxemia. 7. . 8. Qve-bhvknxn-auuqdyofs type 2 diabetes mellitus with hemoglobin A1c of 7.4. 9. Hypertriglyceridemia, hypercholesteremia with elevated LDL and decreased HDL. 10. Diabetic neuropathy. 11. History of ventilator-dependent respiratory failure, history of right lower lobe atelectasis, history of asthma and chronic obstructive pulmonary disease, history of obesity, myomectomy, bunionectomy and tonsillectomy. 1. Acute exacerbation of bronchial asthma with bronchospasm and wheezing. 2. Questionable asthmatic bronchitis. 3. Transient tachycardia. 4. Hypertension. 5. Morbid obesity. 6. Hypoxemia. 7. Hypokalemia. 8. Type 2 scu-tnrnsjx-edjhiityo diabetes mellitus with hyperglycemia. 9. Hyperlipidemia. 10. Diabetic neuropathy. 11. History of ventilator-dependent respiratory failure in 2017. 12. History of right lower lobe atelectasis. 13. History of asthma versus chronic obstructive pulmonary disease, history of ventilator-dependent respiratory failure. 14. History of obesity, history of myomectomy, bunionectomy, and tonsillectomy. PLAN: At this time, the patient will be continued on therapeutic intervention as per the MAR, repeat labs ordered. Sputum culture results pending. The patient is on Mucomyst nebulizer 20% 4 mL every 6 hours to be given together with Xopenex nebulizer 0.63 mg every 6 hours and Xopenex 1.25 mg every 2 hours p.r.n. The patient is on Altace 5 mg daily, Brovana 15 mcg nebulizer every 12 hours, Colace 100 mg three times a day, doxycycline 100 mg IV every 12 hours, Humalog medium dose sliding scale coverage before meals and at bedtime, Kayexalate 15 g p.o. one dose. The patient is on Lipitor 20 mg daily, Lovenox 40 mg subcu daily for DVT prophylaxis, MiraLax 17 g twice a day, Neurontin 100 mg three times a day, Protonix 40 mg daily, Pulmicort nebulizer 0.5 mg every 12 hours, Rocephin 1 g IV daily, IV fluid 0.9 normal saline at 60 mL an hour, Solu-Medrol 40 mg IV every 6 hours, Tessalon Perles 200 three times a day, Tylenol p.o. suppository p.r.n. for temperature greater than 99.5, headache and mild pain. The patient is on Zofran 4 IV every 4 hours p.r.n. The patient has been ordered chest PT, incentive spirometry, peak flow. Out of bed, SCDs, physical therapy, ambulation therapy ordered. The patient was updated about her condition, diagnosis. Treatment plan and management plan was explained and discussed with the patient at length. The patient will be out of bed to chair. The patient updated about her condition. The patient was explained the treatment plan, management plan and continuation of IV antibiotics, IV steroids at length and all questions concerned answered, which she acknowledged understand. Dictated and electronically signed, not read. Tyrell Egan MD MTDD
[2018-06-26] MEDS: Acetylcysteine 20% Inhal Soln (4ml) IH SCH ×3 (02:15→19:49)
[2018-06-26] MEDS: Levalbuterol 0.63 MG/3 ML Inhal Soln UD IH SCH ×4 (02:15→19:50)
[2018-06-26] MEDS: MethylPREDNISolone 40 mg Vial IVP SCH ×4 (05:29→23:17)
[2018-06-26] MEDS: Pantoprazole 40 mg EC Tab PO SCH (05:29)
[2018-06-26] MEDS: Sodium Chloride 0.9% 1,000 ML IV SCH (05:57)
[2018-06-26 06:35] LABS: ALB/GLOB RATIO 1.4 (1.1-1.8); ALT/SGPT 34 U/L (7-56); AST/SGOT 21 U/L (14-36); BILIRUBIN,DIRECT 0.2 mg/dL (0.0-0.4); BLOOD UREA NITROGEN 16 mg/dL (7-21); CALCIUM 9.4 mg/dL (8.4-10.5); GFR AFRICAN-AMERICAN > 60; GFR NON-AFRICAN AMERICAN > 60
[2018-06-26] MEDS: Arformoterol 15 mcg/2 ml Inh Sol IH SCH ×2 (08:33→19:50)
[2018-06-26] MEDS: Budesonide 0.5 mg/2 ml Inhal Susp UD IH SCH ×2 (08:33→19:50)
[2018-06-26] MEDS: Insulin Lispro (humaLOG) MEDIUM Coverage SC SCH ×4 (09:39→21:54)
[2018-06-26] MEDS: cefTRIAXone 1 gm 1 GM/100 ML BAG IVPB SCH (09:40)
[2018-06-26] MEDS: Enoxaparin 40 mg Syringe SC SCH (09:43)
[2018-06-26] MEDS: POLYETHYLENE GLYCOL 3350 17 GM/Dose PACKET PO SCH ×2 (09:43→17:42)
--- NOTE | 2018-06-26 10:12 | CARD ---
APPROVED REPORT Date of service: 06/25/2018 EXAM: Two-dimensional and M-mode echocardiogram with Doppler and color Doppler. INDICATION EVALUATE LVFX 2D DIMENSIONS Left Atrium (2D)4.1 (1.6-4.0cm)IVSd1.1 (0.7-1.1cm) LVDd3.8 (3.9-5.9cm)PWd1.1 (0.7-1.1cm) LVDs2.5 (2.5-4.0cm)FS (%) 33.9 % LVEF (%)63.6 (>50%) M-Mode DIMENSIONS Aortic Root3.10 (2.2-3.7cm)Aortic Cusp Exc.1.70 (1.5-2.0cm) Aortic Valve AoV Peak Kqlpvwxe036.0cm/Alex Peak GR.9mmHg Mitral Valve MV E Rxjmmdfl09.0cm/sMV A Ddantabw22.1cm/sE/A ratio1.1 TDI Lateral E' Peak V9.94cm/sMedial E' Peak V9.26cm/sE/Lateral E'7.7 E/Medial E'8.3 Pulmonary Valve PV Peak Ueginoza86.0cm/sPV Peak Grad.2mmHg Tricuspid Valve TR Peak Yuckehkp260yo/sRAP [id number] Peak Gr.30mmHg [id number] LEFT VENTRICLE The left ventricle is normal size. There is normal left ventricular wall thickness. The left ventricular function is normal.EF-60-65% There is normal LV segmental wall motion. The left ventricular diastolic function is normal. No left ventricle thrombus noted on this study. There is no ventricular septal defect visualized. There is no left ventricular aneurysm. There is no mass noted in the left ventricle. RIGHT VENTRICLE The right ventricle is normal size. There is normal right ventricular wall thickness. The right ventricular systolic function is normal. ATRIA The left atrium is borderline dilated. The right atrium size is normal. The interatrial septum is intact with no evidence for an atrial septal defect. AORTIC VALVE The aortic valve is normal in structure. No aortic regurgitation is present. There is no aortic valvular stenosis. There is no aortic valvular vegetation. MITRAL VALVE The mitral valve is thickened but opens well. Mitral regurgitation is trace to mild. There is no mitral valve stenosis. There is no evidence of mitral valve prolapse. TRICUSPID VALVE The tricuspid valve leaflets are thickened , but open well. There is trace to mild tricuspid regurgitation.RVSP-41 mmof hg. There is no tricuspid valve stenosis. There is no tricuspid valve prolapse or vegetation. PULMONIC VALVE The pulmonary valve is normal in structure. There is trace pulmonic valvular regurgitation. There is no pulmonic valvular stenosis. GREAT VESSELS The aortic root is normal in size. The ascending aorta is normal in size. The pulmonary artery is normal. The IVC is normal in size and collapses >50% with inspiration. PERICARDIAL EFFUSION There is no pleural effusion. There is no pericardial effusion. <Conclusion> The left ventricle is normal size. There is normal left ventricular wall thickness. The left ventricular function is normal.EF-60-65% Mitral regurgitation is trace to mild. There is trace to mild tricuspid regurgitation.RVSP-41 mmof hg. The IVC is normal in size and collapses >50% with inspiration. There is no pericardial effusion. No thrombus or vegetation noted.
--- NOTE | 2018-06-26 14:35 | PN ---
Copied To: Tyrell Egan MD Attending MD: Tyrell Egan MD DATE: 06/26/2018 LOCATION: The patient is seen in room 261, bed 1. SUBJECTIVE: The patient is sitting up in the chair. The patient appears to be comfortable, in no distress. Overnight nurses' notes were reviewed. No adverse events were documented in the nurses' notes. The patient had an uneventful last 12 hours in the evening or night nurse supervisor. The patient was not found to be in any respiratory distress. OBJECTIVE: VITAL SIGNS: T-max 97.6. Telemetry shows sinus rhythm. Heart rate 61, 85, 65, 86; blood pressure 127/79, 139/93, 119/72, 131/85; respirations 18; O2 sat 98% to 100% on room air. HEENT: Head examination: Normocephalic, atraumatic. HEENT examination shows pink conjunctivae. Anicteric sclerae. No oropharyngeal lesion. NECK: No neck rigidity. CHEST: Kyphosis. LUNGS: Shows decreased wheezing and decreased rhonchi and somewhat improved air entry since admission and hospitalization. CARDIOVASCULAR: S1, S2. Positive systolic murmur. ABDOMEN: Obese. Positive bowel sounds. GENITALIA: Female. RECTAL: Examination deferred. EXTREMITIES: Shows no pitting edema, no calf tenderness, no Homans' sign. NEUROLOGIC: The patient is alert, awake, oriented x3. Cranial nerves II-XII intact. Gait examination is independent. MUSCULOSKELETAL: Shows a body mass index of 44. DIAGNOSTICS: Sodium 41, potassium 4.8, chloride 106, CO2 21, anion gap 19, BUN 16, creatinine 0.7. GFR greater than 60. Glucose 231, 252, 248, 219, 239. Calcium 9.4, phosphorus 2.9, magnesium 1.9. LFTs are normal. Blood cultures are negative. Repeat chest x-ray was reviewed. Echocardiogram from 06/25/2018, ejection fraction 63%. Right ventricular systolic pressure 40 mmHg. IMPRESSION AND PLAN: 1. Acute exacerbation of bronchial asthma with bronchospasm and asthmatic bronchitis. 2. Acute exacerbation of chronic obstructive pulmonary disease. 3. Tachycardia. 4. Hypertension. 5. Hypo and hyperkalemia. 6. Rbv-olvlbxa-zxfwzgigy diabetes mellitus with hemoglobin A1c of 7.4. 7. Hypertriglyceridemia, hypercholesteremia. 8. Hypoxemia. 9. Hypertensive cardiovascular disease with left ventricle ejection fraction of 63%. 10. Pulmonary hypertension with right ventricular systolic pressure of 40 mmHg with mild tricuspid regurgitation. 11. Mild mitral regurgitation. 12. Morbid obesity with elevated body mass index of 44. 13. Hyperlipidemia. 14. Steroid-induced hyperglycemia. 15. Constipation. 16. Diabetic neuropathy. 1. Acute exacerbation of bronchial asthma with wheezing and shortness of breath and cough with bronchospasm. 2. Questionable asthmatic bronchitis. 3. Tachycardia. 4. Hypertension. 5. Morbid obesity. 6. Hypoxemia. 7. . 8. Scc-bhrdqal-qvolfamyc type 2 diabetes mellitus with hemoglobin A1c of 7.4. 9. Hypertriglyceridemia, hypercholesteremia with elevated LDL and decreased HDL. 10. Diabetic neuropathy. 11. History of ventilator-dependent respiratory failure, history of right lower lobe atelectasis, history of asthma and chronic obstructive pulmonary disease, history of obesity, myomectomy, bunionectomy and tonsillectomy. 1. Acute exacerbation of bronchial asthma with bronchospasm and wheezing. 2. Questionable asthmatic bronchitis. 3. Transient tachycardia. 4. Hypertension. 5. Morbid obesity. 6. Hypoxemia. 7. Hypokalemia. 8. Type 2 ycd-aregmze-tunftmrxo diabetes mellitus with hyperglycemia. 9. Hyperlipidemia. 10. Diabetic neuropathy. 11. History of ventilator-dependent respiratory failure in 2017. 12. History of right lower lobe atelectasis. 13. History of asthma versus chronic obstructive pulmonary disease, history of ventilator-dependent respiratory failure. 14. History of obesity, history of myomectomy, bunionectomy, and tonsillectomy. PLAN: At this time, the patient's Telemetry has been discontinued. The patient has been ordered to repeat labs. The patient's IV Solu-Medrol was tapered down. The patient is on Mucomyst nebulized 20% 4 mL every 6 hours, Altace 5 mg daily, Brovana 15 mcg every 12 hours, Colace 100 mg three times a day, doxycycline 100 mg IV every 12 hours, Humalog medium dose sliding scale coverage before meals and at bedtime, Lipitor 20 mg daily, Lovenox 40 mg subcu daily, MiraLax 17 g twice a day, Neurontin 100 mg three times a day, Protonix 40 mg daily, Pulmicort nebulizer 0.5 mg every 12 hours, Solu-Medrol decreased to 40 mg IV every 8 hours, Tessalon Perles 200 three times a day, Tylenol 650 mg p.o. suppository every 6 hours p.r.n., Xopenex nebulizer every 6 hours round the clock every 2 hours p.r.n., Zofran IV every 4 hour p.r.n. The patient is on chest PT, incentive spirometry, oxygen nasal cannula, out of bed, DANNY stockings, SCDs.. If the patient continues to improve, we will consider further tapering of the steroids and probably switching it to oral steroids and discharge in very near future. The patient updated about her condition, diagnosis, test results at length and all questions concerned answered to her satisfaction. Dictated and electronically signed, not read. Tyrell Egan MD MTDMicheal
[2018-06-26 19:17] VITALS: TEMP 98.1
[2018-06-27] MEDS: Acetylcysteine 20% Inhal Soln (4ml) IH SCH ×3 (01:34→14:07)
[2018-06-27] MEDS: Levalbuterol 0.63 MG/3 ML Inhal Soln UD IH SCH ×3 (01:35→14:07)
[2018-06-27] MEDS: Pantoprazole 40 mg EC Tab PO SCH (05:55)
[2018-06-27 07:14] LABS: ALB/GLOB RATIO 1.4 (1.1-1.8); ALBUMIN 3.7 g/dL (3.0-4.8); ALT/SGPT 36 U/L (7-56); AST/SGOT 27 U/L (14-36); BILIRUBIN,DIRECT 0.1 mg/dL (0.0-0.4); BLOOD UREA NITROGEN 17 mg/dL (7-21); GFR AFRICAN-AMERICAN > 60; GFR NON-AFRICAN AMERICAN > 60
[2018-06-27 07:43] VITALS: BP 127/61; PULSE 52; RESP 20; O2SAT 96
[2018-06-27] MEDS: Arformoterol 15 mcg/2 ml Inh Sol IH SCH (07:54)
[2018-06-27] MEDS: Budesonide 0.5 mg/2 ml Inhal Susp UD IH SCH (07:54)
[2018-06-27] MEDS: Insulin Lispro (humaLOG) MEDIUM Coverage SC SCH ×2 (08:21→11:29)
[2018-06-27] MEDS: MethylPREDNISolone 40 mg Vial IVP SCH (08:22)
[2018-06-27] MEDS: Enoxaparin 40 mg Syringe SC SCH (09:28)
[2018-06-27] MEDS: POLYETHYLENE GLYCOL 3350 17 GM/Dose PACKET PO SCH (09:28)
[2018-06-27] MEDS ORDERED: Cefpodoxime (Vantin) 200 mg Tab PO SCH (10:00)
--- NOTE | 2018-06-27 13:18 | DS ---
Copied To: Tyrell Egan MD Attending MD: Tyrell Egan MD HISTORY OF PRESENT ILLNESS: The patient is seen in room 361, bed 1. The patient is sitting up in the chair. The patient is in no distress. The patient's breathing is normal without any effort noted. Overnight nurse's notes were reviewed. No adverse events documented per the nurse's notes. The patient slept well. PHYSICAL EXAMINATION: VITAL SIGNS: T-max 98.1, pulse 52-78, blood pressure 127/61, respirations 20, O2 sat 96% on room air. HEENT: The patient's head examination normocephalic, atraumatic. HEENT examination shows pink conjunctivae. Anicteric sclerae. No oropharyngeal lesion. No neck rigidity. CHEST: Kyphosis. LUNGS: Shows no wheezing, no rhonchi. No rales, crackles. CARDIOVASCULAR: S1, S2, regular rhythm. ABDOMEN: Soft, obese. Positive bowel sound. No hepatosplenomegaly noted. GENITALIA: Female. RECTAL: Deferred. EXTREMITY: Shows no pitting edema, no calf tenderness, no Homans' sign. NEUROLOGICAL: The patient is alert, awake, oriented x3. Cranial nerves II through XII grossly intact. Gait examination is independent. VASCULAR: Palpable pulses. MUSCULOSKELETAL: Shows a body mass index of 44. DIAGNOSTICS: On 06/27/2018, sodium 140, potassium 4.7, chloride 106, CO2 of 23, anion gap 16, BUN 17, creatinine 0.8, GFR greater than 60. Fingerstick blood sugar 244, 286, 225, 203, 244. Calcium 9, phosphorus 4.2, magnesium 1.9. LFTs are normal. Blood cultures are no growth. FINAL IMPRESSION, PLAN AND DISCHARGE DIAGNOSES: 1. Acute exacerbation of bronchial asthma, bronchospasm, asthmatic bronchitis. 2. Acute extubation of chronic obstructive pulmonary disease, resolved. 3. Tachycardia. 4. Hypertension. 5. Hypokalemia and hyperkalemia. 6. Bfp-lclgtdy-zadbmxjuq diabetes mellitus with hemoglobin A1c of 7.4. 7. Hypertriglyceridemia, hypercholesteremia. 8. Hypoxemia. 9. Hypertensive cardiovascular disease with left ventricular ejection fraction of 60%. 10. Pulmonary hypertension with right ventricular systolic pressure of 40 mmHg and mild tricuspid regurgitation. 12. Mild mitral regurgitation. 13. Morbid obesity with elevated body mass index of 44. 14. Steroid-induced hyperglycemia. 15. Constipation. 16. Diabetic neuropathy. 17. Obesity. 1. Acute exacerbation of bronchial asthma with bronchospasm and asthmatic bronchitis. 2. Acute exacerbation of chronic obstructive pulmonary disease. 3. Tachycardia. 4. Hypertension. 5. Hypo and hyperkalemia. 6. Pht-qshjfoh-olpvukwku diabetes mellitus with hemoglobin A1c of 7.4. 7. Hypertriglyceridemia, hypercholesteremia. 8. Hypoxemia. 9. Hypertensive cardiovascular disease with left ventricle ejection fraction of 63%. 10. Pulmonary hypertension with right ventricular systolic pressure of 40 mmHg with mild tricuspid regurgitation. 11. Mild mitral regurgitation. 12. Morbid obesity with elevated body mass index of 44. 13. Hyperlipidemia. 14. Steroid-induced hyperglycemia. 15. Constipation. 16. Diabetic neuropathy. 1. Acute exacerbation of bronchial asthma with wheezing and shortness of breath and cough with bronchospasm. 2. Questionable asthmatic bronchitis. 3. Tachycardia. 4. Hypertension. 5. Morbid obesity. 6. Hypoxemia. 7. . 8. Nao-etmwubj-eomsbeyvi type 2 diabetes mellitus with hemoglobin A1c of 7.4. 9. Hypertriglyceridemia, hypercholesteremia with elevated LDL and decreased HDL. 10. Diabetic neuropathy. 11. History of ventilator-dependent respiratory failure, history of right lower lobe atelectasis, history of asthma and chronic obstructive pulmonary disease, history of obesity, myomectomy, bunionectomy and tonsillectomy. 1. Acute exacerbation of bronchial asthma with bronchospasm and wheezing. 2. Questionable asthmatic bronchitis. 3. Transient tachycardia. 4. Hypertension. 5. Morbid obesity. 6. Hypoxemia. 7. Hypokalemia. 8. Type 2 lzz-mxbrlri-jvwgoaesf diabetes mellitus with hyperglycemia. 9. Hyperlipidemia. 10. Diabetic neuropathy. 11. History of ventilator-dependent respiratory failure in 2017. 12. History of right lower lobe atelectasis. 13. History of asthma versus chronic obstructive pulmonary disease, history of ventilator-dependent respiratory failure. 14. History of obesity, history of myomectomy, bunionectomy, and tonsillectomy. Plan at this time, the patient has been cleared for discharge. The patient will be discharged home on the following medications. The patient is will be discharged on Brovana 15 mcg every 12, Tessalon Perles 200 three times a day, Dexilant 60 mg daily, Neurontin the patient will resume at 100 mg three times a day, Xopenex nebulizer 0.63 mg every 6 hours, Levaquin 500 mg daily for 7-10 days, Linzess 145 mcg daily, metformin 1000 mg twice a day. The patient's will be discharged on prednisone tapering dose 60 mg daily for 3 days, then 40 mg daily for 3 days, 30 mg daily for 3 days, 20 mg daily for 3 days, then 10 mg daily for 3 days with food. Altace 5 mg daily, Zocor 40 mg daily. The patient is to be discharged home with discharge followup with Dr. Egan within 1 week or the patient's PMD within 1 week. The patient's discharge medications as per ambulatory orders plus new script. The patient will be given a copy of the diet upon discharge by the nurses. During this hospitalization, the patient was extensively and on daily basis was explained about the patient's clinical condition, diagnoses, diagnostic test results and recommendation by all the physicians involved in the care of the patient on a daily basis. The patient was updated daily about her condition and improvement. The patient was discharged home with complete discharge instructions, discharge medications explained and discharge instructions explained to the patient with limitations, restrictions, followup, compliance with diet, activity, medication all discussed and explained to the patient. Time spent in the entire discharge process more than 45 minutes. Dictated and electronically signed, not read. Tyrell Egan MD MTDD
== END 2018-06-27 14:32 | disposition home or self-care (01) | DRG 202 ==
LOC: ED 17:04 → ERH 19:04 → 2RNO 21:03 → OBSVTOIN 06-26 08:42 → 3RNO 06-26 13:18
PROVIDERS: ADMIT Internal Medicine; ATTEND Internal Medicine
DX: J45.901 Unspecified asthma with (acute) exacerbation (principal); J44.1 Chronic obstructive pulmonary disease with (acute) exacerbation; Z68.41 Body mass index [BMI] 40.0-44.9, adult; E11.40 Type 2 diabetes mellitus with diabetic neuropathy, unspecified; E11.65 Type 2 diabetes mellitus with hyperglycemia; E66.01 Morbid (severe) obesity due to excess calories; E78.00 Pure hypercholesterolemia, unspecified; E78.1 Pure hyperglyceridemia; E78.5 Hyperlipidemia, unspecified; E87.5 Hyperkalemia; E87.6 Hypokalemia; I08.1 Rheumatic disorders of both mitral and tricuspid valves; I27.20 Pulmonary hypertension, unspecified; I11.9 Hypertensive heart disease without heart failure; K59.00 Constipation, unspecified; T38.0X5A Adverse effect of glucocorticoids and synthetic analogues, initial encounter; Z79.899 Other long term (current) drug therapy; Z82.5 Family history of asthma and other chronic lower respiratory diseases; R09.02 Hypoxemia; R00.0 Tachycardia, unspecified